=== PATIENT | female | born 1935 | race Caucasian/White ===

== ENCOUNTER 2017-01-26 11:07 | Observation (INO) ==
[2017-01-26] MEDS ORDERED: FUROSEMIDE 100 MG/10 ML VIAL IV STA (11:27)
--- NOTE | 2017-01-26 11:31 | EKG Report ---
Stationary ECG Study [facility] ER Test Date: 01/26/2017 11:29:17 AM Pat Name: GABRIELA SNIDER Department: Room: Gender: F Rn Occupational: : 1935 Requested by: Manuel Echeverria Order Number: [id number] Reading MD: THERESA CINTRON Intervals [place] Rate: 74 P: 71 FL: 147 QRS: 47 QRSD: 148 T: 206 QT: 455 QTc: 482 Interpretive Statements SINUS RHYTHM at 74 bpm LEFT BUNDLE BRANCH BLOCK Electronically Signed On 01-30-17 16:04:59 CDT by THERESA CINTRON [email or web address]
[2017-01-26] MEDS ORDERED: FUROSEMIDE 100 MG/10 ML VIAL ONE (11:45)
[2017-01-26 11:50] LABS: Basophils % 0.5 % (0.0-0.8); Eosinophils # 0.2 10*3/uL (0.0-0.87); Eosinophils % 4.4 % (0.00-10.9); Hematocrit 35.8 VOL% (35.7-47.0); Hemoglobin 11.5 GM/DL (12.0-16.0); Lymphocytes # 1.7 10*3/uL (1.4-4.0); Lymphocytes % 38.9 % (21.3-54.2); Mean Corpuscular HGB Conc 32.1 GM/DL (32-36); Mean Corpuscular Hemoglobin 30 PG (27-34); Mean Corpuscular Volume 92.3 FL (87-102); Mean Platelet Volume 11.2 FL (9.6-12.0); Monocytes # 0.5 10*3/uL (0.11-0.8); Monocytes % 10.3 % (1.7-12.7); Neutrophils % 45.9 % (38.7-73.9); Platelet Count 153 T/CUMM (130-400); Red Blood Count 3.88 MC/CUMM (3.8-5.5); Red Cell Distribution Width 14.6 % (9.3-17.3); White Blood Count 4.4 T/CUMM (4-12)
--- NOTE | 2017-01-26 12:06 | XRay Report ---
Exam: XR chest 1V portable Date: 01/26/2017 11:28 AM Indication: Shortness of breath Comparison: 12/22/2016 Technical: AP portable Findings: Cardiomegaly present. Mild interstitial thickening present in the basilar regions bilaterally. External cardiac leads are present. Oxygen tubing is present. Mediastinum is unremarkable. Impression: 1. Cardiomegaly 2. Persistent bibasilar atelectatic change and/or scarring with mild hyperinflation COPD present. PROCEDURE INTERPRETED AT [facility] DEPARTMENT OF RADIOLOGY Final Report Signed by: Dr. Nawaf Enriquez
[2017-01-26 12:21] LABS: Alanine Aminotransferase 14 U/L (13-56); Albumin 3.4 G/DL (3.4-5.0); Alkaline Phosphatase 110 U/L (45-117); Aspartate Amino Transferase 22 U/L (0-37); Bilirubin,Total < 0.39 MG/DL (0.2-1.0); Blood Urea Nitrogen 15 MG/DL (7-18); Calcium 8.7 MG/DL (8.5-10.1); Glucose 87 MG/DL (74-106); Magnesium 2.2 MG/DL (1.8-2.4); Osmolality,Calculated 282.1 MOS/KG (273-304); Potassium 4.4 MMOL/L (3.5-5.1); Sodium 142 MMOL/L (136-145); Total Protein 7.5 G/DL (6.4-8.3); Troponin I Only < 0.015 NG/ML (0.00-0.045)
--- NOTE | 2017-01-26 12:42 | Emergency Department Note ---
Erick Turpin Hilary, am scribing for, and in the presence of, Manuel Sharp MD 11:29. Lila Turpin Phillip K, MD, personally performed the services described in this documentation, ascribed by Nicki Suarez in my presence, and it is both accurate and complete . Arrival - Arrival Chief Complaint: Shortness of Breath Stated Complaint: sob ED Nursing Triage Note: Sent from the [facility] - SOB and generalized weakness onset 3-4 days Mode of Arrival: Wheelchair Limitations: No Limitations Source: Patient, RN Notes Reviewed - History of Present Illness HPI Narrative: Pt is a 81 y/o female presenting to the ED with c/o SOB and generalized weakness which onset a couple days ago. Pt states she was woken up around 0300 to her feet swelling and had to sit up to catch her breath. Pt confirms cough, SOB, and swollen feet but denies fever. She reports that she takes 4 breathing treatments daily, and Lasix. Onset (ago): day(s) Date of Last Menstrual Period: hyster Allergies/Adverse Reactions: Allergies Allergy/AdvReac Type Severity Reaction Status Date / Time Amoxicillin [From Augmentin] Allergy RASH Verified 10/07/16 13:13 cefepime [From Maxipime] Allergy Swelling Verified 10/07/16 13:13 of Lip/Tongue/Throat clavulanic acid Allergy RASH Verified 10/07/16 13:13 [From Augmentin] Diclofenac [From Arthrotec] Allergy Unknown/Unable Verified 10/07/16 13:13 to obtain misoprostol [From Arthrotec] Allergy Unknown/Unable Verified 10/07/16 13:13 to obtain Home Medications: Home Medications Medication Instructions Recorded Confirmed Type Allopurinol 300 mg PO DAILY 05/29/15 01/26/17 History Carvedilol [Coreg] 3.125 mg PO BID 05/29/15 01/26/17 History Magnesium Chloride [Mag Delay] 64 mg PO BID 05/29/15 01/26/17 History Furosemide Tab [Lasix Tab] 40 mg PO BID 08/19/15 01/26/17 History Multivit-Min/Iron/Folic/Lutein 1 each PO DAILY 11/05/15 01/26/17 History [Centrum Silver Women Tablet] Ipratropium [place] 0.02 % INH Q6H 05/27/16 01/26/17 History Levalbuterol Neb [Xopenex Neb] 1.25 mg RESP TX RT Q6H 05/27/16 01/26/17 History Gabapentin Cap/Tab [Neurontin 100 mg PO BID 10/07/16 01/26/17 History Cap/Tab] Potassium Chloride Cap/Tab [K Dur] 20 meq PO DAILY 01/26/17 01/26/17 History Review of System - Review of System 12 point system: reviewed and no additional remarkable complaints except as stated - Review of System Constitutional: Present: weakness (generalized). Absent: fever Respiratory: Present: cough, respiratory distress (SOB) Cardiovascular: Absent: chest pain Gastrointestinal: Absent: abdominal pain Neurological: Present: weakness (generalized) Medical,Surgical,& Family Hx - Medical History Cardio: History of: CHF, Hypertension Psychological: History of: Depression Neurology: History of: Peripheral Neuropathy No history of: Seizures HEENT: History of: Eye Problem (glasses), Dental Problems (upper and lower) Endocrine: History of: Dyslipidemia Rheumatology: History of;: Gout, Rheumatoid Arthritis Respiratory: History of: Bronchitis (chronic), COPD, Pneumonia Gastrointestinal: History of: GI Problems (pancreatitis caused by gallbladder disease) Hematology: History of: Anemia Other: History of: Miscellaneous Medical Problems (easy to bruise) - Surgical History Cardiac Surgeries: Sugical HX of: Cardiac Catheterization (1 stent) HEENT Surgeries: Surgical HX of: Eye Surgery (bilateral cataract surgery) Abdominal Surgeries: Surgical HX of: Abdominal Surgery, Appendectomy, Cholecystectomy, Colonoscopy, EGD Reproductive Surgeries: Surgical HX of;: Gynecologic Surgery, Hysterectomy - Family History Family History: Reports;: Family Cancer (son), Family Heart Disease (mother), Family Hypertension (mother and father), Family Stroke (father) - Social History Smoking Status: Former smoker Frequency of Alcohol Use: None Type of Drug Use: None Exam Vital Signs: Vital Signs Temperature 97.3 F L 01/26/17 11:31 Pulse Rate 74 01/26/17 12:00 Respiratory Rate 23 01/26/17 12:00 Blood Pressure 115/67 01/26/17 12:00 O2 Sat by Pulse Oximetry 99 01/26/17 12:00 - General General appearance: alert, in no apparent distress - Head Head exam: Present: atraumatic, normocephalic - Eye Eye exam: Present: normal appearance, PERRL, EOMI - ENT ENT exam: Present: mucous membranes moist, TM's normal bilaterally. Absent: mucous membranes dry - Neck Neck exam: Present: full ROM, trachea midline. Absent: tenderness - Chest Chest inspection: Present: symmetric chest wall rise. Absent: tenderness - Respiratory Respiratory exam: Present: rales (bilaterally in all lung granado, posterior and anterior), wheezes (expiratory ) - Cardiovascular Cardiovascular exam: Present: regular rate, normal rhythm, normal heart sounds. Absent: murmur, rubs, gallop - Abdominal Exam Abdominal exam: Present: soft, normal bowel sounds. Absent: distention, tenderness - Extremities Exam Extremities exam: Present: full ROM, pedal edema (2+ bilaterally). Absent: tenderness - Back Exam Back exam: Present: full ROM. Absent: tenderness - Neurological Exam Neurological exam: Present: alert, oriented X3, CN II-XII intact. Absent: motor sensory deficit - Psychiatric Psychiatric exam: Present: normal affect, normal mood - Skin Skin exam: Present: warm, dry, intact, normal color. Absent: rash Results - Labs CBC & BMP: 01/26/17 11:40 01/26/17 11:40 Lab Results: I have reviewed the patients labs Labs: Laboratory Tests 01/26/17 11:40 WBC 4.4 RBC 3.88 Hgb 11.5 L Hct 35.8 Laboratory Tests 01/26/17 01/26/17 11:40 11:40 Sodium 142 Potassium 4.4 Chloride 104 Carbon Dioxide 32 B-Natriuretic Peptide 370 H Globulin 4.1 H Albumin/Globulin Ratio 0.8 L - EKG EKG results: interpreted by JHOANA, sinus rhythm (LBBB) - Diagnostic Findings Procedure: Chest x-ray: report reviewed by me (1.Cardiomegaly 2. Persistent bibasilar atelectatic change and/or scarring iwth mild hyperinflation COPD present.) Disposition Clinical Impression: Congestive heart failure, COPD (chronic obstructive pulmonary disease) Case discussed with: patient, patient's family Disposition: Still a Patient Condition: Guarded Additional Instructions: Admit to Dr. Whitaker
[2017-01-26] MEDS ORDERED: ONDANSETRON 4 MG/2 ML VIAL IV PRN (12:44)
[2017-01-26] MEDS ORDERED: ACETAMINOPHEN 325 MG TABLET PO PRN (12:44)
[2017-01-26] MEDS ORDERED: ALBUTEROL/IPRATROPIUM 3 ML NEB RESP TX SCH (13:00)
[2017-01-26] MEDS: LEVOFLOXACIN INJ 500 MG in PREMIX 1 EACH IV SCH (14:17)
[2017-01-26] MEDS ORDERED: ALBUTEROL 2.5 MG/3 ML NEB RESP TX PRN (16:13)
--- NOTE | 2017-01-26 16:37 | Cardiology Consult Note ---
<Lyric Arshad E - Last Filed: 01/26/17 17:19> Assessment and Plan - Time spent with patient Time spent with patient: Greater than 30 minutes (due to assessment, plan, and documentation) (1) Dyspnea Status: Acute Assessment and plan: SEE PLAN OF CARE LISTED BELOW. Current Visit: No (2) Congestive heart failure Status: Chronic Assessment and plan: SEE PLAN OF CARE LISTED BELOW. Current Visit: Yes (3) Lower extremity edema Status: Acute Assessment and plan: SEE PLAN OF CARE LISTED BELOW. Current Visit: Yes (4) COPD (chronic obstructive pulmonary disease) Status: Chronic Assessment and plan: SEE PLAN OF CARE LISTED BELOW. Current Visit: Yes (5) Hypertension Status: Chronic Assessment and plan: SEE PLAN OF CARE LISTED BELOW. Current Visit: Yes (6) Left bundle branch block Status: Chronic Assessment and plan: SEE PLAN OF CARE LISTED BELOW. Current Visit: No (7) History of coronary artery disease Status: Chronic Assessment and plan: SEE PLAN OF CARE LISTED BELOW. Current Visit: No History of Present Illness - Data of Consult Patient: known to practice within the last 3 years (last seen by Dr. Ramos 04/27) Consult date: 01/26/17 Requesting Physician: Manuel Sharp Primary care physician: Nigel Tenorio - Consult Narrative Reason for consult: SOB History of present illness: FREELANCE MAKEUP ARTIST: DR. RAMOS PCP: DR. TENORIO Ms. Sorensen is a 81 year old female with a history of COPD, CHF, chronic left bundle branch block, coronary artery disease, hypertension, mitral regurgitation, former tobacco use. She is status post mid RCA stent July 01, 2009. She has very limited mobility and uses a motorized scooter to get around. She is unable to walk even short distances without having severe dyspnea. She has been on continuous home O2 for the past 2 years. She also has to sleep in the recliner in order to breathe comfortably. She reportedly has an allergy to albuterol and says that it sends her into atrial fibrillation. She tells me she never has any other episodes of atrial fibrillation whenever she has been checked. I do not see any mention of this in her previous records but we will avoid using this medication and continue her home medication. Ms. Sorensen presented to the emergency room today with acute dyspnea with onset this morning around 0300. She tells me she woke up around 0300 this morning and noticed her left leg swelling. She reports she also felt more short of breath than usual and states she just "didn't feel good." She states she tried to wait and see if she would improve, but when she did not, she had her son bring her to the emergency room. She denies chest pain, dizziness, lightheadedness, syncope, palpitations, diaphoresis. On admission, her BNP was noted to be 370, creatinine 1.0, potassium 4.4, magnesium 2.2, troponin negative. She was given one dose of IV Lasix and admitted to family medicine on the telemetry unit. We were consulted to see her due to her shortness of breath. Dr. Michaels to follow with further plan and addendum. ASSESSMENT/PLAN: 1. ACUTE DYSPNEA - Likely multifactorial. We will check D-Dimer, BLE venous dopplers to rule out PE/DVT. She has been given IV Lasix in ER and reports she feels "slightly" better. Echocardiogram has been ordered. She denies chest pain but we will cycle 2 additional sets of cardiac biomarkers to rule out ACS as cause for her dyspnea. 2. CONGESTIVE HEART FAILURE - Will check echocardiogram. It's possible this is contributing to her shortness of breath and lower extremity edema, although we will also rule out PE/DVT. Will continue IV Lasix. 3. LOWER EXTREMITY EDEMA - Continue Lasix IV. Patient reports this has already improved slightly since she first arrived at the hospital. 4. COPD - Continue O2 as needed. Continue breathing treatments. Will defer further management to family medicine. 5. HYPERTENSION - Currently well controlled. Will continue home medications and monitor. 6. LEFT BUNDLE BRANCH BLOCK - This is chronic. Will monitor. 7. HISTORY OF CAD - Status post mid RCA stent 07/01/09. She has not followed up with Dr. Ramos since 2014. Initial troponin negative. CC: Nigel Tenorio, DO - Home Medications and Allergies Home Medications: Home Medications Medication Instructions Recorded Confirmed Type Allopurinol 300 mg PO DAILY 05/29/15 01/26/17 History Carvedilol [Coreg] 3.125 mg PO BID 05/29/15 01/26/17 History Magnesium Chloride [Mag Delay] 64 mg PO BID 05/29/15 01/26/17 History Furosemide Tab [Lasix Tab] 40 mg PO BID 08/19/15 01/26/17 History Multivit-Min/Iron/Folic/Lutein 1 each PO DAILY 11/05/15 01/26/17 History [Centrum Silver Women Tablet] Ipratropium [place] 0.02 % INH Q6H 05/27/16 01/26/17 History Levalbuterol Neb [Xopenex Neb] 1.25 mg RESP TX RT Q6H 05/27/16 01/26/17 History Gabapentin Cap/Tab [Neurontin 100 mg PO BID 10/07/16 01/26/17 History Cap/Tab] Potassium Chloride Cap/Tab [K Dur] 20 meq PO DAILY 01/26/17 01/26/17 History Allergies/Adverse Reactions: Allergies Allergy/AdvReac Type Severity Reaction Status Date / Time Amoxicillin [From Augmentin] Allergy RASH Verified 10/07/16 13:13 cefepime [From Maxipime] Allergy Swelling Verified 10/07/16 13:13 of Lip/Tongue/Throat clavulanic acid Allergy RASH Verified 10/07/16 13:13 [From Augmentin] Diclofenac [From Arthrotec] Allergy Unknown/Unable Verified 10/07/16 13:13 to obtain misoprostol [From Arthrotec] Allergy Unknown/Unable Verified 10/07/16 13:13 to obtain Review of systems: - Constitutional: Present: fatigue, weakness, As per HPI. Absent: anorexia, chills, daytime sleepiness, excessive sweating, fever(s), frequent falls, headache(s), increased appetite, lethargy, malaise, night sweats, stops breathing during sleep, weight gain, weight loss. - EENT Eyes: Present: As per HPI. Absent: blurry vision, diplopia, loss of vision Ears: Present: As per HPI. Absent: decreased hearing, ear discharge, ear pain Nose, mouth and throat: Present: As per HPI. Absent: dysphagia, epistaxis, headache(s), hoarseness, lip swelling, nasal congestion, neck mass, neck pain, sinus pressure, sore throat, throat swelling, tongue swelling, vertigo - Cardiovascular: Present: dyspnea, dyspnea on exertion, edema, as per HPI. Absent: chest pain at rest, chest pain with activity, claudication, diaphoresis , radiating jaw, neck or arm pain, lightheadedness, orthopnea, palpitations, PND - Respiratory: Present: dyspnea, dyspnea on exertion, cough, as per HPI. Absent : hemoptysis, wheezing, snoring, pain on inspiration - Gastrointestinal: Present: As per HPI. Absent: abdominal pain, bloating, change in bowel habits, constipation, diarrhea, heartburn, hematemesis, hematochezia, loose stools, melena, nausea, vomiting - Genitourinary: Present: As per HPI. Absent: difficulty urinating, dysuria, flank pain, hematuria, nocturia, urinary frequency, urinary incontinence - Musculoskeletal: Present: As per HPI. Absent: arthralgias, back pain, joint swelling, limited range of motion, muscle cramps, muscle weakness, myalgias - Neurological: Present: As per HPI. Absent: abnormal gait, abnormal speech, behavioral changes, confusion, convulsions, disequilibrium, dizziness, focal weakness, frequent falls, headache(s), memory loss, numbness, paresthesias, radicular pain, syncope, tremor(s) - Psychiatric: Present: As per HPI. Absent: anxiety, confusion, depression, panic attacks - Endocrine: Present:fatigue, As per HPI. Absent: cold intolerance, heat intolerance, polydipsia, polyphagia - Hematologic/Lymphatic: Present: As per HPI. Absent: easy bleeding, easy bruising, lymphadenopathy Medical,Surgical,& Family Hx - Medical History Cardio: History of: CHF, Hypertension Psychological: History of: Depression Neurology: History of: Peripheral Neuropathy No history of: Seizures HEENT: History of: Eye Problem (glasses), Dental Problems (upper and lower) Endocrine: History of: Dyslipidemia Rheumatology: History of;: Gout, Rheumatoid Arthritis Respiratory: History of: Bronchitis (chronic), COPD, Pneumonia Gastrointestinal: History of: GI Problems (pancreatitis caused by gallbladder disease) Hematology: History of: Anemia Other: History of: Miscellaneous Medical Problems (easy to bruise) - Surgical History Cardiac Surgeries: Sugical HX of: Cardiac Catheterization (1 stent) HEENT Surgeries: Surgical HX of: Eye Surgery (bilateral cataract surgery) Abdominal Surgeries: Surgical HX of: Abdominal Surgery, Appendectomy, Cholecystectomy, Colonoscopy, EGD Reproductive Surgeries: Surgical HX of;: Gynecologic Surgery, Hysterectomy - Family History Family History: Reports;: Family Cancer (son), Family Heart Disease (mother), Family Hypertension (mother and father), Family Stroke (father) - Social History Smoking Status: Former smoker Frequency of Alcohol Use: None Type of Drug Use: None Marital Status: Functional capacity: wheelchair bound Physical Examination Vital Signs Temp Pulse Resp BP Pulse Ox 97.3 F L 74 20 113/67 97 01/26/17 11:13 01/26/17 11:13 01/26/17 11:13 01/26/17 11:13 01/26/17 11:13 Other: General appearance: Pleasant and cooperative. Overweight, no acute distress. - Head Head exam: Present: normal inspection, normocephalic, atraumatic. Absent: hematoma, laceration - Eye Eye exam: Present: EOMI. Absent: conjunctival injection, nystagmus, periorbital swelling, scleral icterus, laceration to eyelids Pupils: Present: PERRL. Absent: constricted, dilated, fixed, irregular, unequal - ENT ENT exam: Present: normal exam, normal external ear exam - Neck Neck exam: Present: normal inspection. Absent: lymphadenopathy, meningismus, tenderness, thyromegaly - Respiratory Respiratory exam: Present: clear to auscultation bilaterally, decreased breath sounds to bilateral bases posteriorly. Absent: accessory muscle use, chest wall tenderness - Cardiovascular Cardiovascular exam: Present: regular rate and rhythm. Absent: carotid bruit, gallop, JVD, rubs, murmur - GI/Abdominal GI/Abdominal exam: Present: normal bowel sounds, soft. Absent: distended, firm , guarding, hernia, mass, tenderness, rebound. - Extremities Exam Extremities exam: Present: normal capillary refill. Upper extremity pulses 2+. Lower extremity pulses 2+. 1+ pitting edema to RLE. 2+ pitting edema to LLE. Absent: calf tenderness -Musculoskeletal Exam Musculoskeletal: Present: No Fluid Collection, No Pain, Normal Range of Motion - Back Exam Back exam: Present: normal inspection. Absent: muscle spasm, vertebral tenderness - Neurological Exam Neurological exam: Present: alert, oriented X3, grossly intact without resting or essential tremor - Psychiatric Psychiatric exam: Present: normal affect, normal mood - Skin Skin exam: Present: warm, dry, intact. Absent: cyanosis, diaphoretic, rash, urticaria Result/EKG - Labs CBC & BMP: 01/26/17 11:40 01/26/17 11:40 Lab Results: I have reviewed the past 24 hour labs - EKG EKG results: interpreted by me, sinus rhythm (with chronic left bundle branch block) <Hua Michaels - Last Filed: 01/26/17 17:38> History of Present Illness - Consult Narrative History of present illness: Patient personally interviewed and examined and chart reviewed. I have discussed this case with Lyric Arshad NP. I agree with the assessment and evaluation and plan. In addition a summation Ms. Sorensen is a 81 year old female who has chronic COPD on home bronchodilator therapy and oxygen. She developed some recent progressive shortness of breath as well as acute left lower extremity edema last night but was not accompanied with any pain. She has had no prior history of DVT or pulmonary emboli. She was admitted to Dr. Pascual Peralta's service and we were consulted. At this time were going to evaluate for possible DVT of the left lower extremity. The edema that was already improved with Lasix. We will place her back on her bronchodilators that she takes at home and continue her home oxygen. Troponin is nondetectable BNP is 370. ECG was sinus rhythm and left bundle branch block. Chest x-ray without acute changes. We will await the patient's echocardiogram continue though some diuresis. We will monitor her. CC: Nigel Tenorio, DO Physical Examination Vital Signs Temp Pulse Resp BP Pulse Ox 97.3 F L 74 20 113/67 97 01/26/17 11:13 01/26/17 11:13 01/26/17 11:13 01/26/17 11:13 01/26/17 11:13 Result/EKG - Labs CBC & BMP: 01/26/17 11:40 01/26/17 11:40
[2017-01-26] MEDS: IPRATROPIUM 500 MCG/2.5 ML NEB RESP TX SCH (17:35)
[2017-01-26] MEDS: LEVALBUTEROL 1.25 MG/3 ML NEB RESP TX PRN ×2 (17:35→21:45)
[2017-01-26 18:48] LABS: Troponin I Only < 0.015 NG/ML (0.00-0.045)
[2017-01-26] MEDS ORDERED: ALBUTEROL 2.5 MG/3 ML NEB RESP TX SCH (19:00)
[2017-01-26] MEDS ORDERED: LEVALBUTEROL 1.25 MG/3 ML NEB RESP TX SCH (19:00)
--- NOTE | 2017-01-26 19:18 | Ultrasound Report ---
Referring physician: Nigel Whitaker Exam: Bilateral lower extremity venous ultrasound Date: January 26, 2017 Comparison: Lower extremity venous ultrasound June 23, 2009 Reason: Acute dyspnea/shortness of breath, lower extremity edema Technique: Duplex scan of the bilateral lower extremity veins was performed using B-Mode/grayscale imaging, compression, Doppler spectral analysis and color flow. Ultrasound images were captured and stored. Findings: There is no evidence of thrombus within the left or right common femoral veins, saphenous veins, superficial femoral veins or popliteal veins. Normal compression and augmentation are present throughout. Normal color flow and spectral analysis are observed. There is a 4.8 x 3.1 x 1.2 cm cyst at the left popliteal fossa. This is most consistent with a Juarez's cyst. Impression: 1. No evidence of deep venous thrombosis within either lower extremity. 2. Left Juarez's cyst. PROCEDURE INTERPRETED AT [facility] DEPARTMENT OF RADIOLOGY Final Report Signed by: Dr. Maria R Olson
[2017-01-26] MEDS ORDERED: FUROSEMIDE 40 MG TABLET PO SCH (21:00)
--- NOTE | 2017-01-26 21:08 | CT Report ---
EXAM: CT chest PE study DATE: January 26, 2017 COMPARISON: CT chest with contrast May 26, 2011 REASON: Pulmonary embolus, shortness of breath TECHNIQUE: Axial images of the chest were obtained after administration of 80 cc of Omnipaque 350 intravenous contrast. Coronal/sagittal reformatted images and coronal/sagittal MIP images were also acquired. The study was performed per pulmonary embolism protocol. Total DLP was 219.4 mGy*cm. FINDINGS: Pulmonary arteries: Evaluation of the subsegmental pulmonary arteries is limited, but no pulmonary embolus is identified through the segmental pulmonary artery branches. Vascular/heart: The thoracic aorta is normal in size but slightly tortuous. There is also moderate scattered calcified plaque at the thoracic aorta and its branches, including the coronary arteries. The heart is borderline enlarged, but no pericardial effusion is seen. Lymph nodes: There are calcified mediastinal and hilar lymph nodes. There are a few borderline prominent hilar and mediastinal lymph nodes. However, they appear stable. No suspicious axillary adenopathy is seen. Chest wall: Unremarkable. Lungs: Motion artifact makes evaluation of the lungs difficult, but there is [id number] emphysema, both in a centrilobular and paraseptal distribution. This is most prominent at the upper lung zones. There are also mild scattered opacities within both lungs, mainly within the lingula and right middle lobe. This is most consistent with atelectasis and possibly scarring. No pneumothorax or pleural effusion is identified. Bones: No acute osseous process is identified. Upper abdomen: The patient is status post cholecystectomy. No acute process is identified within the upper abdomen. IMPRESSION: 1. No evidence of pulmonary embolism. 2. There are mild scattered opacities within both lungs, mainly within the right middle lobe and lingula. This is most consistent with atelectasis and possibly scarring. 3. Emphysema. PROCEDURE INTERPRETED AT [facility] DEPARTMENT OF RADIOLOGY Final Report Signed by: Dr. Maria R Olson
[2017-01-26] MEDS: ENOXAPARIN 40 MG/0.4 ML SYRINGE SUBCUT SCH (21:39)
[2017-01-26] MEDS: MAGNESIUM CHLORIDE 64 MG TABLET PO SCH (21:39)
[2017-01-26] MEDS: GABAPENTIN 100 MG CAPSULE PO SCH (21:39)
[2017-01-26] MEDS: CARVEDILOL 3.125 MG TABLET PO SCH (21:39)
[2017-01-26] MEDS: DOCUSATE SODIUM 100 MG CAPSULE PO SCH (21:39)
--- NOTE | 2017-01-26 21:42 | Family Practice History&Phys ---
Assessment and Plan (1) Congestive heart failure Status: Acute Assessment and plan: Patient was noted to have some rales in bases in the emergency room. She had slight elevation of her BNP is 370. D-dimer was elevated at 1.8. Venous Dopplers and CT angiography chest did not reveal any acute clots. Isoenzymes are stable. Patient has been started on appropriate medication treatment Current Visit: Yes (2) Acute exacerbation of chronic obstructive airways disease Status: Acute Assessment and plan: Patient has significant wheezing with rare rales in bases bilaterally. She has had good diuresis but she has had her most relief from her respiratory treatments. I think that her admission symptoms were multifactorial with a component of COPD and congestive heart failure will start on appropriate treatment Current Visit: No (3) Hypertension Status: Chronic Assessment and plan: Stable on present medication Current Visit: Yes (4) History of coronary artery disease Status: Chronic Assessment and plan: Stable to present Current Visit: No History of Present Illness Chief complaint: Progressive shortness of breath and edema History of present illness: Ms. Sorensen is a 81 year old female Pt is a 81 y/o female presenting to the ED with c/o SOB and generalized weakness which onset a couple days ago. Pt states she was woken up around 0300 to her feet swelling and had to sit up to catch her breath. Pt confirms cough, SOB, and swollen feet but denies fever. Patient was evaluated in the emergency room and noted to have some rales and wheezing in bases bilaterally. Her BNP was slightly elevated at 370. Chest x-ray was essentially stable. Patient's dyspnea is probably multifactorial but in view of the degree of symptoms she is being admitted for evaluation therapy Home Medications Medication Instructions Recorded Confirmed Type Allopurinol 300 mg PO DAILY 05/29/15 01/26/17 History Carvedilol [Coreg] 3.125 mg PO BID 05/29/15 01/26/17 History Magnesium Chloride [Mag Delay] 64 mg PO BID 05/29/15 01/26/17 History Furosemide Tab [Lasix Tab] 40 mg PO BID 08/19/15 01/26/17 History Multivit-Min/Iron/Folic/Lutein 1 each PO DAILY 11/05/15 01/26/17 History [Centrum Silver Women Tablet] Ipratropium [place] 0.02 % INH Q6H 05/27/16 01/26/17 History Levalbuterol Neb [Xopenex Neb] 1.25 mg RESP TX RT Q6H 05/27/16 01/26/17 History Gabapentin Cap/Tab [Neurontin 100 mg PO BID 10/07/16 01/26/17 History Cap/Tab] Potassium Chloride Cap/Tab [K Dur] 20 meq PO DAILY 01/26/17 01/26/17 History Allergies Allergy/AdvReac Type Severity Reaction Status Date / Time Amoxicillin [From Augmentin] Allergy RASH Verified 10/07/16 13:13 cefepime [From Maxipime] Allergy Swelling Verified 10/07/16 13:13 of Lip/Tongue/Throat clavulanic acid Allergy RASH Verified 10/07/16 13:13 [From Augmentin] Diclofenac [From Arthrotec] Allergy Unknown/Unable Verified 10/07/16 13:13 to obtain misoprostol [From Arthrotec] Allergy Unknown/Unable Verified 10/07/16 13:13 to obtain Medical,Surgical,& Family Hx - Medical History Cardio: History of: CHF, Hypertension Psychological: History of: Depression Neurology: History of: Peripheral Neuropathy No history of: Seizures HEENT: History of: Eye Problem (glasses), Dental Problems (upper and lower) Endocrine: History of: Dyslipidemia Rheumatology: History of;: Gout, Rheumatoid Arthritis Respiratory: History of: Bronchitis (chronic), COPD, Pneumonia Gastrointestinal: History of: GI Problems (pancreatitis caused by gallbladder disease) Hematology: History of: Anemia Other: History of: Miscellaneous Medical Problems (easy to bruise) - Surgical History Cardiac Surgeries: Sugical HX of: Cardiac Catheterization (1 stent) HEENT Surgeries: Surgical HX of: Eye Surgery (bilateral cataract surgery) Abdominal Surgeries: Surgical HX of: Abdominal Surgery, Appendectomy, Cholecystectomy, Colonoscopy, EGD Reproductive Surgeries: Surgical HX of;: Gynecologic Surgery, Hysterectomy - Family History Family History: Reports;: Family Cancer (son), Family Heart Disease (mother), Family Hypertension (mother and father), Family Stroke (father) - Social History Smoking Status: Former smoker Frequency of Alcohol Use: None Type of Drug Use: None Marital Status: Exam - Constitutional Vitals: Period Temp Pulse Resp BP Sys/Genao Pulse Ox Last 24 Hr 97.7 F-98.2 F 75-85 18-24 115-132/67-72 94-100 General appearance: mild distress - Head Head exam: Present: normal inspection - ENT ENT exam: Present: normal exam - Neck Neck exam: Present: normal inspection - Respiratory Respiratory exam: Present: rales, wheezes - Cardiovascular Cardiovascular exam: Present: irregular rhythm, systolic murmur - GI/Abdominal GI/Abdominal exam: Present: normal bowel sounds, soft - Extremities Exam Extremities exam: Present: full ROM, edema - Back Exam Back exam: Present: normal inspection - Neurological Exam Neurological exam: Present: alert - Psychiatric Psychiatric exam: Present: normal affect - Skin Skin exam: Present: warm Results - Labs CBC & BMP: 01/26/17 11:40 01/26/17 11:40
[2017-01-26] MEDS: methylPREDNISolone SOD SUC 125 MG/2 ML VIAL IV SCH (23:39)
[2017-01-27 00:19] LABS: Troponin I Only < 0.015 NG/ML (0.00-0.045)
[2017-01-27] MEDS: LEVALBUTEROL 1.25 MG/3 ML NEB RESP TX SCH ×6 (01:30→19:48)
[2017-01-27] MEDS: IPRATROPIUM 500 MCG/2.5 ML NEB RESP TX SCH ×4 (01:53→19:46)
[2017-01-27 05:06] LABS: Basophils % 0.5 % (0.0-0.8); Eosinophils # 0.1 10*3/uL (0.0-0.87); Eosinophils % 1.4 % (0.00-10.9); Hematocrit 34.6 VOL% (35.7-47.0); Hemoglobin 11.1 GM/DL (12.0-16.0); Immature Granulocytes % 0.2 %; Immature Granulocytes Absolute 0.01 #; Lymphocytes # 0.7 10*3/uL (1.4-4.0); Lymphocytes % 16.4 % (21.3-54.2); Mean Corpuscular HGB Conc 32.1 GM/DL (32-36); Mean Corpuscular Hemoglobin 29 PG (27-34); Mean Corpuscular Volume 90.6 FL (87-102); Mean Platelet Volume 11.5 FL (9.6-12.0); Monocytes # 0.1 10*3/uL (0.11-0.8); Neutrophils # 3.4 10*3/uL (1.4-7.4); Neutrophils % 78.5 % (38.7-73.9); Platelet Count 145 T/CUMM (130-400); Red Blood Count 3.82 MC/CUMM (3.8-5.5); Red Cell Distribution Width 14.4 % (9.3-17.3); White Blood Count 4.4 T/CUMM (4-12)
[2017-01-27 05:47] LABS: Albumin 3.3 G/DL (3.4-5.0); Bilirubin,Total 0.6 MG/DL (0.2-1.0); Calcium 8.4 MG/DL (8.5-10.1); Osmolality,Calculated 285.1 MOS/KG (273-304); Potassium 4.1 MMOL/L (3.5-5.1); Risk Ratio 3.07; Total Protein 6.4 G/DL (6.4-8.3); VLDL CHOLESTEROL 15.6 MG/DL
[2017-01-27] MEDS: methylPREDNISolone SOD SUC 125 MG/2 ML VIAL IV SCH (06:32)
--- NOTE | 2017-01-27 08:13 | Pulmonology Consult Note ---
Assessment and Plan (1) COPD (chronic obstructive pulmonary disease) Status: Acute Assessment and plan: She does have significant COPD and is on good medication for that. She has slightly increased cough. I think it is reasonable to treat her with bronchodilators and antibiotics but would just use minimal dose steroids. I think this is primarily congestive heart failure. Current Visit: Yes (2) Nonischemic cardiomyopathy Status: Chronic Assessment and plan: History of ejection fraction 35%. Edema orthopnea. Elevated BNP. Need to cautiously diurese her. Agree with getting cardiology evaluation. Current Visit: No History of Present Illness Chief complaint: Shortness of breath History of present illness: Ms. Sorensen is a 81 year old female woke up yesterday morning with her left leg swollen a little more than the right leg. She was more short of breath. Really not having a lot of cough but she did have a little phlegm. This was an acute onset she had not been having any respiratory symptoms the last several days. She does however have severe COPD and a cardiomyopathy with an ejection fraction of 35%. She takes her medications regularly and keeps appointments regularly. She denies chest pain. She has not coughed up any blood. She is a former smoker but quit more than 10 years ago. Home Medications Medication Instructions Recorded Confirmed Type Allopurinol 300 mg PO DAILY 05/29/15 01/26/17 History Carvedilol [Coreg] 3.125 mg PO BID 05/29/15 01/26/17 History Magnesium Chloride [Mag Delay] 64 mg PO BID 05/29/15 01/26/17 History Furosemide Tab [Lasix Tab] 40 mg PO BID 08/19/15 01/26/17 History Multivit-Min/Iron/Folic/Lutein 1 each PO DAILY 11/05/15 01/26/17 History [Centrum Silver Women Tablet] Ipratropium [place] 0.02 % INH Q6H 05/27/16 01/26/17 History Levalbuterol Neb [Xopenex Neb] 1.25 mg RESP TX RT Q6H 05/27/16 01/26/17 History Gabapentin Cap/Tab [Neurontin 100 mg PO BID 10/07/16 01/26/17 History Cap/Tab] Potassium Chloride Cap/Tab [K Dur] 20 meq PO DAILY 01/26/17 01/26/17 History Allergies Allergy/AdvReac Type Severity Reaction Status Date / Time Amoxicillin [From Augmentin] Allergy RASH Verified 10/07/16 13:13 cefepime [From Maxipime] Allergy Swelling Verified 10/07/16 13:13 of Lip/Tongue/Throat clavulanic acid Allergy RASH Verified 10/07/16 13:13 [From Augmentin] Diclofenac [From Arthrotec] Allergy Unknown/Unable Verified 10/07/16 13:13 to obtain misoprostol [From Arthrotec] Allergy Unknown/Unable Verified 10/07/16 13:13 to obtain 12 point system: reviewed and no additional remarkable complaints except as stated - Constitutional Constitutional: Present: weakness - Cardiovascular Cardiovascular: Present: dyspnea, dyspnea on exertion, edema, orthopnea - Respiratory Respiratory: Present: cough, dyspnea, dyspnea on exertion - Neurological Neurological: Present: numbness - Psychiatric Psychiatric: Present: anxiety Exam (Pulmonay) H&P - Constitutional Vitals: Period Temp Pulse Resp BP Sys/Genao Pulse Ox Last 24 Hr 2 F-98.2 F 75-102 16-24 104-132/52-72 90-100 Exam: Vital signs normal. O2 sat 99% on 2 L. Pupils react to light. Throat is clear. Neck supple no bruits. Chest reveals some bibasilar crackles and mild expiratory rhonchi. Heart normal rate rhythm no murmurs. Abdomen soft nontender no masses. Extremities she has a trace of edema in both legs. Calves are nontender. Medical,Surgical,& Family Hx - Medical History Cardio: History of: CHF, Hypertension Psychological: History of: Depression Neurology: History of: Peripheral Neuropathy No history of: Seizures HEENT: History of: Eye Problem (glasses), Dental Problems (upper and lower) Endocrine: History of: Dyslipidemia Rheumatology: History of;: Gout, Rheumatoid Arthritis Respiratory: History of: Bronchitis (chronic), COPD, Pneumonia Gastrointestinal: History of: GI Problems (pancreatitis caused by gallbladder disease) Hematology: History of: Anemia Other: History of: Miscellaneous Medical Problems (easy to bruise) - Surgical History Cardiac Surgeries: Sugical HX of: Cardiac Catheterization (1 stent) HEENT Surgeries: Surgical HX of: Eye Surgery (bilateral cataract surgery) Abdominal Surgeries: Surgical HX of: Abdominal Surgery, Appendectomy, Cholecystectomy, Colonoscopy, EGD Reproductive Surgeries: Surgical HX of;: Gynecologic Surgery, Hysterectomy - Family History Family History: Reports;: Family Cancer (son), Family Heart Disease (mother), Family Hypertension (mother and father), Family Stroke (father) - Social History Smoking Status: Former smoker Frequency of Alcohol Use: None Type of Drug Use: None Results - Labs CBC & BMP: 01/27/17 03:49 01/27/17 03:49 Lab Results: I have reviewed the past 24 hour labs - Diagnostic Findings Procedure: Chest x-ray: image reviewed by me (Cardiomegaly. No acute infiltrates), CT - chest: image reviewed by me (Negative for pulmonary embolism. Minimal chronic interstitial scarring and/or atelectasis. No acute infiltrates.)
[2017-01-27] MEDS: FUROSEMIDE 40 MG/4 ML VIAL IV SCH ×2 (09:06→15:21)
[2017-01-27] MEDS: POTASSIUM CHLORIDE 20 MEQ TABLET PO SCH (09:07)
[2017-01-27] MEDS: CARVEDILOL 3.125 MG TABLET PO SCH ×2 (09:07→20:33)
[2017-01-27] MEDS: ALLOPURINOL 300 MG TABLET PO SCH (09:07)
[2017-01-27] MEDS: DOCUSATE SODIUM 100 MG CAPSULE PO SCH ×2 (09:07→20:33)
[2017-01-27] MEDS: MULTIVITAMIN (CENTRUM) TABLET PO SCH (09:07)
[2017-01-27] MEDS: GABAPENTIN 100 MG CAPSULE PO SCH ×2 (09:07→20:33)
[2017-01-27] MEDS: MAGNESIUM CHLORIDE 64 MG TABLET PO SCH ×2 (09:08→20:33)
[2017-01-27] MEDS: PANTOPRAZOLE 40 MG TABLET PO SCH (09:08)
--- NOTE | 2017-01-27 12:31 | Family Practice Progress Note ---
Family Practice - PN: Subj Interval history: Patient states that she feels much better this a.m.. She was able to rest some during the night. Her a.m. my lab studies are stable. This appears to definitely be a combination of congestive heart failure and chronic obstructive pulmonary disease. She denies any new complaints this a.m. She has had good diuresis. Her lungs sound much better this a.m. with only slight wheezing and bases bilaterally. We will continue present treatment plan. Hopefully will continue to improve Exam (Progress Note) - Constitutional Vitals: Period Temp Pulse Resp BP Sys/Genao Pulse Ox Last 24 Hr 2 F-98.4 F 75-102 16-24 104-132/52-72 90-100 Results - Labs CBC & BMP: 01/27/17 03:49 01/27/17 03:49 Assessment and Plan (1) Congestive heart failure Status: Acute Assessment and plan: Patient was noted to have some rales in bases in the emergency room. She had slight elevation of her BNP is 370. D-dimer was elevated at 1.8. Venous Dopplers and CT angiography chest did not reveal any acute clots. Isoenzymes are stable. Patient has been started on appropriate medication treatment Current Visit: Yes (2) Acute exacerbation of chronic obstructive airways disease Status: Acute Assessment and plan: Patient has significant wheezing with rare rales in bases bilaterally. She has had good diuresis but she has had her most relief from her respiratory treatments. I think that her admission symptoms were multifactorial with a component of COPD and congestive heart failure will start on appropriate treatment Current Visit: No (3) Hypertension Status: Chronic Assessment and plan: Stable on present medication Current Visit: Yes (4) History of coronary artery disease Status: Chronic Assessment and plan: Stable to present Current Visit: No
--- NOTE | 2017-01-27 12:50 | Cardiology Progress Note ---
<Lyric Arshad E - Last Filed: 01/27/17 12:39> Assessment and Plan - Time spent with patient Time spent with patient: Less than 30 minutes (1) Dyspnea Status: Acute Assessment and plan: SEE PLAN OF CARE LISTED BELOW. Current Visit: No (2) Congestive heart failure Status: Acute Assessment and plan: SEE PLAN OF CARE LISTED BELOW. Current Visit: Yes (3) Lower extremity edema Status: Acute Assessment and plan: SEE PLAN OF CARE LISTED BELOW. Current Visit: Yes (4) COPD (chronic obstructive pulmonary disease) Status: Acute Assessment and plan: SEE PLAN OF CARE LISTED BELOW. Current Visit: Yes (5) Hypertension Status: Chronic Assessment and plan: SEE PLAN OF CARE LISTED BELOW. Current Visit: Yes (6) Left bundle branch block Status: Chronic Assessment and plan: SEE PLAN OF CARE LISTED BELOW. Current Visit: No (7) History of coronary artery disease Status: Chronic Assessment and plan: SEE PLAN OF CARE LISTED BELOW. Current Visit: No Cardiology - PN: Subj Interval history: TORTILLA MAKER: DR. RAMOS PCP: DR. TENORIO Ms. Sorensen is a 81 year old female with a history of COPD, CHF, chronic left bundle branch block, coronary artery disease, hypertension, mitral regurgitation, former tobacco use. She is status post mid RCA stent July 01, 2009. She has very limited mobility and uses a motorized scooter to get around. She is unable to walk even short distances without having severe dyspnea. She has been on continuous home O2 for the past 2 years. She reportedly has an allergy to albuterol and says that it sends her into atrial fibrillation. She tells me she never has any other episodes of atrial fibrillation whenever she has been checked. I do not see any mention of this in her previous records but we will avoid using this medication and continue her home medication. She presented to the emergency room with recent progressive shortness of breath as well as acute left lower extremity edema without pain. Her breathing has improved with Lasix and breathing treatments. Her D-Dimer was noted to be elevated at 1.8 and she subsequently underwent venous dopplers and CT angiography of the chest which were both negative for DVT/PE. Upon exam today, her bilateral lower extremity edema is grossly less than it was yesterday and she seems much more comfortable. Her vital signs have been stable. Her labwork has been reviewed. Creatinine remains stable at 1.0. Cardiac biomarkers were negative x [address] Michaels to follow with further plan and addendum. ASSESSMENT/PLAN: 1. ACUTE DYSPNEA - Likely multifactorial and felt to be due to her CHF and COPD. Echocardiogram is pending. Venous dopplers and CT angiography of the chest were negative for DVT/PE. This is not felt to be due to ACS as she has had 3 sets of negative cardiac biomarkers. 2. CONGESTIVE HEART FAILURE - Echocardiogram pending. We will continue her Lasix as it along with her bronchodilators have improved her breathing considerably. 3. LOWER EXTREMITY EDEMA - Continue Lasix IV. This is much improved since admission. 4. COPD - Pulmonology is following. This is probably contributing in part to her shortness of breath as her breathing treatments seem to have given her the most relief. 5. HYPERTENSION - Currently well controlled. Will continue home medications and monitor. 6. LEFT BUNDLE BRANCH BLOCK - This is chronic. Will monitor. 7. HISTORY OF CAD - Status post mid RCA stent 07/01/09. She has not followed up with Dr. Ramos since 2014. Cardiac biomarkers negative x3. Exam (Progress Note) - Constitutional Vitals: Period Temp Pulse Resp BP Sys/Genao Pulse Ox Last 24 Hr 2 F-98.4 F 75-102 16-24 104-132/52-72 90-100 Exam: General appearance: Pleasant and cooperative. Overweight, no acute distress. - Head Head exam: Present: normal inspection, normocephalic, atraumatic. Absent: hematoma, laceration - Eye Eye exam: Present: EOMI. Absent: conjunctival injection, nystagmus, periorbital swelling, scleral icterus, laceration to eyelids Pupils: Present: PERRL. Absent: constricted, dilated, fixed, irregular, unequal - ENT ENT exam: Present: normal exam, normal external ear exam - Neck Neck exam: Present: normal inspection. Absent: lymphadenopathy, meningismus, tenderness, thyromegaly - Respiratory Respiratory exam: Present: clear to auscultation bilaterally, decreased breath sounds to bilateral bases posteriorly. Absent: accessory muscle use, chest wall tenderness - Cardiovascular Cardiovascular exam: Present: regular rate and rhythm. Absent: carotid bruit, gallop, JVD, rubs, murmur - GI/Abdominal GI/Abdominal exam: Present: normal bowel sounds, soft. Absent: distended, firm , guarding, hernia, mass, tenderness, rebound. - Extremities Exam Extremities exam: Present: normal capillary refill. Upper extremity pulses 2+. Lower extremity pulses 2+. No edema to RLE, trace pitting edema to LLE. Overall , much improved. Absent: calf tenderness -Musculoskeletal Exam Musculoskeletal: Present: No Fluid Collection, No Pain, Normal Range of Motion - Back Exam Back exam: Present: normal inspection. Absent: muscle spasm, vertebral tenderness - Neurological Exam Neurological exam: Present: alert, oriented X3, grossly intact without resting or essential tremor - Psychiatric Psychiatric exam: Present: normal affect, normal mood - Skin Skin exam: Present: warm, dry, intact. Absent: cyanosis, diaphoretic, rash, urticaria Result/EKG - Labs CBC & BMP: 01/27/17 03:49 01/27/17 03:49 Lab Results: I have reviewed the past 24 hour labs Labs: Laboratory Results - last 24 hr 01/26/17 01/26/17 01/26/17 17:52 17:53 23:21 WBC RBC Hgb Hct MCV MCH MCHC RDW Plt Count MPV Neut % (Auto) Lymph % (Auto) [place] % (Auto) Eos % (Auto) Baso % (Auto) Neut # (Auto) Lymph # (Auto) [place] # (Auto) Eos # (Auto) Baso # (Auto) Immature Gran % Nucleated RBC % Immature Gran # Nucleated RBCs # D-Dimer, Quantitative 1.8 Sodium Potassium Chloride Carbon Dioxide Anion Gap BUN Creatinine GFR Calculation BUN/Creatinine Ratio Glucose Calculated Osmolality Calcium Total Bilirubin AST ALT Alkaline Phosphatase Total Creatine Kinase 70 48 D CK-MB (CK-2) < 1.0 < 1.0 Troponin I < 0.015 < 0.015 B-Natriuretic Peptide Total Protein Albumin Globulin Albumin/Globulin Ratio Triglycerides Cholesterol LDL Cholesterol VLDL Cholesterol HDL Cholesterol Heart Disease Risk Ratio 01/27/17 01/27/17 01/27/17 03:49 03:49 03:49 WBC 4.4 RBC 3.82 Hgb 11.1 L Hct 34.6 L MCV 90.6 MCH 29 MCHC 32.1 RDW 14.4 Plt Count 145 MPV 11.5 Neut % (Auto) 78.5 H Lymph % (Auto) 16.4 L [place] % (Auto) 3.0 Eos % (Auto) 1.4 Baso % (Auto) 0.5 Neut # (Auto) 3.4 Lymph # (Auto) 0.7 L [place] # (Auto) 0.1 L Eos # (Auto) 0.1 Baso # (Auto) 0.0 Immature Gran % 0.2 Nucleated RBC % 0.0 Immature Gran # 0.01 Nucleated RBCs # 0.00 D-Dimer, Quantitative Sodium 142 Potassium 4.1 Chloride 104 Carbon Dioxide 30 Anion Gap 12.1 BUN 17 Creatinine 1.00 GFR Calculation 56 BUN/Creatinine Ratio 17.00 Glucose 117 H Calculated Osmolality 285.1 Calcium 8.4 L Total Bilirubin 0.60 AST 16 ALT 11 L Alkaline Phosphatase 114 Total Creatine Kinase CK-MB (CK-2) Troponin I B-Natriuretic Peptide 499 H Total Protein 6.4 Albumin 3.3 L Globulin 3.1 Albumin/Globulin Ratio 1.0 L Triglycerides 78 Cholesterol 224 H LDL Cholesterol 134.0 VLDL Cholesterol 15.6 HDL Cholesterol 73 H Heart Disease Risk Ratio 3.07 - EKG EKG results: interpreted by me, sinus rhythm (with chronic left bundle branch block) <Hua Michaels - Last Filed: 01/27/17 15:23> Cardiology - PN: Subj Interval history: The patient is interviewed and examined and chart reviewed. I discussed this case with Lyric Arshad NP. Agree with the evaluation and assessment and plan. She is doing well with her edema resolved and no shortness of breath. Her wheezing is markedly improved and feels much better. She has a good appetite. She has been up and around the room. Her vital signs are stable including her heart rate vital signs. She is remaining in sinus rhythm without issues. If she continues to progress like that she should be noted to be discharged soon. I do not think any other cardiac evaluation is indicated at this time. Her BNP is a little more elevated but I do not think this is significant. She can keep her follow-up with Dr. Ramos as prescribed. Her exam is as already noted. She is in no distress, her lungs are clear but little coarse, cardiac regular rate and rhythm with distant heart sounds but no gross murmur, abdomen is soft nontender, extremities are without edema, neurologic is grossly intact. Hopefully she will be able to go home soon. Exam (Progress Note) - Constitutional Vitals: Period Temp Pulse Resp BP Sys/Genao Pulse Ox Last 24 Hr 2 F-98.4 F 80-102 16-24 104-132/52-72 90-99 Result/EKG - Labs CBC & BMP: 01/27/17 03:49 01/27/17 03:49 Labs: Laboratory Results - last 24 hr 01/26/17 01/26/17 01/26/17 17:52 17:53 23:21 WBC RBC Hgb Hct MCV MCH MCHC RDW Plt Count MPV Neut % (Auto) Lymph % (Auto) [place] % (Auto) Eos % (Auto) Baso % (Auto) Neut # (Auto) Lymph # (Auto) [place] # (Auto) Eos # (Auto) Baso # (Auto) Immature Gran % Nucleated RBC % Immature Gran # Nucleated RBCs # D-Dimer, Quantitative 1.8 Sodium Potassium Chloride Carbon Dioxide Anion Gap BUN Creatinine GFR Calculation BUN/Creatinine Ratio Glucose Calculated Osmolality Calcium Total Bilirubin AST ALT Alkaline Phosphatase Total Creatine Kinase 70 48 D CK-MB (CK-2) < 1.0 < 1.0 Troponin I < 0.015 < 0.015 B-Natriuretic Peptide Total Protein Albumin Globulin Albumin/Globulin Ratio Triglycerides Cholesterol LDL Cholesterol VLDL Cholesterol HDL Cholesterol Heart Disease Risk Ratio 01/27/17 01/27/17 01/27/17 03:49 03:49 03:49 WBC 4.4 RBC 3.82 Hgb 11.1 L Hct 34.6 L MCV 90.6 MCH 29 MCHC 32.1 RDW 14.4 Plt Count 145 MPV 11.5 Neut % (Auto) 78.5 H Lymph % (Auto) 16.4 L [place] % (Auto) 3.0 Eos % (Auto) 1.4 Baso % (Auto) 0.5 Neut # (Auto) 3.4 Lymph # (Auto) 0.7 L [place] # (Auto) 0.1 L Eos # (Auto) 0.1 Baso # (Auto) 0.0 Immature Gran % 0.2 Nucleated RBC % 0.0 Immature Gran # 0.01 Nucleated RBCs # 0.00 D-Dimer, Quantitative Sodium 142 Potassium 4.1 Chloride 104 Carbon Dioxide 30 Anion Gap 12.1 BUN 17 Creatinine 1.00 GFR Calculation 56 BUN/Creatinine Ratio 17.00 Glucose 117 H Calculated Osmolality 285.1 Calcium 8.4 L Total Bilirubin 0.60 AST 16 ALT 11 L Alkaline Phosphatase 114 Total Creatine Kinase CK-MB (CK-2) Troponin I B-Natriuretic Peptide 499 H Total Protein 6.4 Albumin 3.3 L Globulin 3.1 Albumin/Globulin Ratio 1.0 L Triglycerides 78 Cholesterol 224 H LDL Cholesterol 134.0 VLDL Cholesterol 15.6 HDL Cholesterol 73 H Heart Disease Risk Ratio 3.07
[2017-01-27] MEDS: LEVOFLOXACIN INJ 500 MG in PREMIX 1 EACH IV SCH (15:20)
[2017-01-27 17:44] LABS: Apearance,Urine CLEAR (Clear); Bacteria,Urine Occasional /HPF (Few); Bilirubin,Urine Negative (Negative); Blood, Urine Negative (Negative); Glucose,Urine (UA) Negative (Negative); Hyaline Casts,Urine 7 /LPF (0-3); Ketones,Urine Negative (Negative); Mucus,Urine Occasional /LPF (Occasional); Nitrite,Urine Negative (Negative); Protein,Urine Negative; RBC,Urine 1 /HPF (0-4); Squamous Epithelial Cell,Urine Occasional /HPF (0-10); Urine Color Yellow (Yellow); Urine Specific Gravity 1.013 (1.001-1.035); Urine Urobilinogen < 2.0 EU/DL (0.2-1.0)
--- NOTE | 2017-01-27 19:00 | ECHO Report ---
Letha Sorensen Exam Date: 01/27/2017 09:40 Referring Physician: Technologist: Brandee Haider Age: 81 Ht (in): 65 Wt (lb): 165 Gender: F Exam Location: [facility] Echo Indications: CHF, Edema, SOB, COPD BP: 113 / 73 HR: 88 Rhythm: Sinus, intraventricular conduction abnormality Technical Quality: Fair IMPRESSIONS 1. Left ventricle overall appears to be mildly dilated with severe LV dysfunction ejection fraction 30%. There is mild concentric left ventricular hypertrophy. Intraventricular conduction delay is noted. 2. Other cardiac chambers appear to be normal size. 3. Mitral calcification with sclerosing of the mitral valve with moderate mitral valve regurgitation. 4. Sclerotic aortic valve without Doppler abnormalities. 5. Trace to mild tricuspid regurgitation. 6. Right-sided pressures are probably normal. MEASUREMENTS (Male / Female) Normal Values 2D ECHO LV Diastolic Diameter PLAX 4.9 cm 4.2 - 5.9 / 3.9 - 5.3 cm LV Systolic Diameter PLAX 4.1 cm LV Fractional Shortening PLAX 15.7 % IVS Diastolic Thickness 1.2 cm 0.6 - 1.0 / 0.6 - 0.9 cm LVPW Diastolic Thickness 1.4 cm 0.6 - 1.0 / 0.6 - 0.9 cm RV Internal Dim ED PLAX 2.0 cm Aortic Root Diameter 2.5 cm LA Systolic Diameter LX 3.4 cm 3.0 - 4.0 / 2.7 - 3.8 cm DOPPLER TR Peak Velocity 250.0 cm/s TR Peak Gradient 25.0 mmHg FINDINGS Left Ventricle Left ventricle is at least mildly dilated with severe LV dysfunction with ejection fraction 30%. There is intraventricular conduction delay. Mild concentric left ventricular hypertrophy. Right Ventricle Normal right ventricular size and systolic function. Right Atrium Normal right atrial size. Left Atrium Left atrium is upper limits normal size. Mitral Valve Mitral valve with minimal annular calcification and mild sclerosing; moderate mitral regurgitation. Aortic Valve Aortic valve is a tricuspid structure with sclerosis without stenosis or regurgitation. Tricuspid Valve Morphologically normal tricuspid valve. Trace to mild tricuspid valve regurgitation. Tricuspid regurgitation velocities suggest a PAP of 30- 35 mmHg. Pulmonic Valve Pulmonic valve not well visualized. Pericardium No pericardial effusion. Aorta Normal size aortic root and proximal ascending aorta. Hua Michaels MD (Electronically Signed) Final Date: 27 Jan 2017 18:59
[2017-01-27] MEDS: ENOXAPARIN 40 MG/0.4 ML SYRINGE SUBCUT SCH (20:33)
[2017-01-28] MEDS: IPRATROPIUM 500 MCG/2.5 ML NEB RESP TX SCH ×3 (00:02→13:01)
[2017-01-28] MEDS: LEVALBUTEROL 1.25 MG/3 ML NEB RESP TX SCH ×4 (00:03→11:14)
[2017-01-28 04:46] LABS: Eosinophils % 0.2 % (0.00-10.9); Hematocrit 32.3 VOL% (35.7-47.0); Hemoglobin 10.4 GM/DL (12.0-16.0); Immature Granulocytes % 0.2 %; Immature Granulocytes Absolute 0.01 #; Lymphocytes # 1.3 10*3/uL (1.4-4.0); Lymphocytes % 29.6 % (21.3-54.2); Mean Corpuscular HGB Conc 32.2 GM/DL (32-36); Mean Corpuscular Hemoglobin 29 PG (27-34); Mean Platelet Volume 11.8 FL (9.6-12.0); Monocytes # 0.4 10*3/uL (0.11-0.8); Monocytes % 9.2 % (1.7-12.7); Neutrophils # 2.6 10*3/uL (1.4-7.4); Neutrophils % 60.8 % (38.7-73.9); Platelet Count 156 T/CUMM (130-400); Red Blood Count 3.63 MC/CUMM (3.8-5.5); Red Cell Distribution Width 14.1 % (9.3-17.3); White Blood Count 4.2 T/CUMM (4-12)
[2017-01-28 05:13] LABS: Calcium 8.7 MG/DL (8.5-10.1); Magnesium 2.1 MG/DL (1.8-2.4); Osmolality,Calculated 286.5 MOS/KG (273-304); Potassium 4.2 MMOL/L (3.5-5.1)
[2017-01-28] MEDS ORDERED: methylPREDNISolone SOD SUC 125 MG/2 ML VIAL IV SCH (06:00)
[2017-01-28] MEDS: CARVEDILOL 3.125 MG TABLET PO SCH (08:34)
[2017-01-28] MEDS: GABAPENTIN 100 MG CAPSULE PO SCH (08:34)
[2017-01-28] MEDS: MAGNESIUM CHLORIDE 64 MG TABLET PO SCH (08:34)
[2017-01-28] MEDS: POTASSIUM CHLORIDE 20 MEQ TABLET PO SCH (08:34)
[2017-01-28] MEDS: MULTIVITAMIN (CENTRUM) TABLET PO SCH (08:34)
[2017-01-28] MEDS: PANTOPRAZOLE 40 MG TABLET PO SCH (08:34)
[2017-01-28] MEDS: DOCUSATE SODIUM 100 MG CAPSULE PO SCH (08:35)
[2017-01-28] MEDS: FUROSEMIDE 40 MG/4 ML VIAL IV SCH (08:35)
[2017-01-28] MEDS: ALLOPURINOL 300 MG TABLET PO SCH (08:35)
--- NOTE | 2017-01-28 10:22 | Cardiology Progress Note ---
Assessment and Plan (1) Lower extremity edema Status: Resolved Assessment and plan: This is resolved at this time. This is a recurrent issue is multifactorial including her lung disease and left ventricular dysfunction. Current Visit: Yes (2) History of coronary artery disease Status: Chronic Assessment and plan: This is clinically stable and not issue at this time. Current Visit: No (3) COPD (chronic obstructive pulmonary disease) Status: Acute Assessment and plan: She had exacerbation of this on this admission this is now improved. Current Visit: Yes (4) Nonischemic cardiomyopathy Status: Chronic Assessment and plan: This is chronic in ejection fraction around 30% which is unchanged from prior evaluations. Current Visit: No (5) Left bundle branch block Status: Chronic Assessment and plan: This is chronic. No change. Current Visit: No (6) Congestive heart failure Status: Acute Assessment and plan: This is actually acute on chronic and is stable. This is now improved with diuresis. Current Visit: Yes (7) Elevated BUN and creatinine Status: Acute Assessment and plan: I think this is a reflection for diuresis. We will change her from IV Lasix back to her p.o. dosing and regimen. Current Visit: Yes Cardiology - PN: Subj Interval history: Patient doing well with no complaints today. She is having no shortness of breath no wheezing. Her edema is completely resolved. She has good appetite. She slept well last night. Her lab work this morning is stable including her CBC and chemistries but her BUN and creatinine are elevated I think this is a reflection of her diuresis. Her telemetry continues reveals sinus rhythm. I think this patient is reached almost maximum hospital benefit and I think it is time to switch her back to oral medication including her Lasix. Exam (Progress Note) - Constitutional Vitals: Period Temp Pulse Resp BP Sys/Genao Pulse Ox Last 24 Hr 96.9 F-99 F 66-88 15-20 99-117/53-67 93-99 Exam: General appearance: Over weight, no acute distress. She is sitting beside the bed HEENT exam: normal inspection, atraumatic Neck exam: normal inspection no JVD. No carotid bruit. Trachea is in midline Respiratory/lungs exam: clear to auscultation bilaterally good air movement. She has no wheezing today. Cardiovascular exam: regular rate and rhythm, no murmur or gallop or rub. No precordial lift. Chest wall exam: nontender GI/Abdominal exam: normal bowel sounds, soft, nontender, no abdominal bruits or pulsatile masses. Extremeties/musculoskeletal: normal inspection without edema or cyanosis. Neurological exam: alert, oriented X3, no focal deficits Psychiatric exam: normal affect, normal mood. Cognitive function is grossly normal. Skin exam: normal color, warm Result/EKG - Labs CBC & BMP: 01/28/17 04:01 01/28/17 04:01 Lab Results: I have reviewed the past 24 hour labs (Her BUN and creatinine are elevated some probably reflects her diuresis.) Labs: Laboratory Results - last 24 hr 01/27/17 01/28/17 01/28/17 17:28 04:01 04:01 WBC 4.2 RBC 3.63 L Hgb 10.4 L Hct 32.3 L MCV 89.0 MCH 29 MCHC 32.2 RDW 14.1 Plt Count 156 MPV 11.8 Neut % (Auto) 60.8 Lymph % (Auto) 29.6 [place] % (Auto) 9.2 Eos % (Auto) 0.2 Baso % (Auto) 0.0 Neut # (Auto) 2.6 Lymph # (Auto) 1.3 L [place] # (Auto) 0.4 Eos # (Auto) 0.0 Baso # (Auto) 0.0 Immature Gran % 0.2 Nucleated RBC % 0.0 Immature Gran # 0.01 Nucleated RBCs # 0.00 Sodium 139 Potassium 4.2 Chloride 100 Carbon Dioxide 31 Anion Gap 12.2 BUN 40 H Creatinine 1.70 H GFR Calculation 29 BUN/Creatinine Ratio 23.00 H Glucose 94 Calculated Osmolality 286.5 Calcium 8.7 Magnesium 2.1 Urine Color Yellow Urine Appearance Clear Urine pH 5.0 Ur Specific [place] 1.013 Urine Protein Negative Urine Glucose (UA) Negative Urine Ketones Negative Urine Blood Negative Urine Nitrate Negative Urine Bilirubin Negative Urine Urobilinogen < 2.0 H Urine Leukocytes Negative Urine RBC 1 Ur Squamous Epith Cells Occasional Urine Bacteria Occasional Hyaline Casts 7 Urine Mucus Occasional Ur Culture Indicated? Not indicated - Impressions Impressions: Telemetry with normal sinus rhythm.
[2017-01-28 12:28] VITALS: BP 129/60
--- NOTE | 2017-01-28 13:02 | Discharge Summary ---
Hospital Course - Hospital Course Hospital Course: This is an 81 year old female patient of Dr. 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 Gee, smoking history and quit cigarettes about 10 years ago, recurrent episodes of COPD exacerbation, history of pancreatitis secondary to gallbladder disease, acid reflux, HTN, who presented to ER with acute CHF and COPD exacerbation. She is feeling much better, and would like to go home for Mother's Day. Discussed at bedside with son and granddaughter. The granddaughter will be staying with her until the son is off shift from work. The family is comfortable with this plan. The patient understands the need for PO fluid restriction. She will follow up with Dr. Whitaker and Dr. Gee in the clinic. Diagnosis - Discharge Diagnosis (1) Renal insufficiency Status: Chronic (2) COPD (chronic obstructive pulmonary disease) Status: Chronic (3) Congestive heart failure Status: Chronic (4) Hypertension Status: Chronic (5) Lower extremity edema Status: Resolved (6) Acute exacerbation of chronic obstructive airways disease Status: Resolved (7) History of coronary artery disease Status: Chronic (8) Left bundle branch block Status: Chronic (9) Nonischemic cardiomyopathy Status: Chronic (10) Diuresis Status: Acute Discharge Plan - Discharge Data Disposition: Home Health Service Condition at Discharge: Stable Discharge Diet: heart healthy, low fat, low cholesterol, low salt diet Activity: increase activity as tolerated - Discharge Medications New Allopurinol [Zyloprim] 200 mg PO DAILY #30 tablet Docusate Sodium Cap [Colace Cap] 100 mg PO BID capsule Levofloxacin Tab [Levaquin Tab] 500 mg PO DAILY #10 tablet Acetaminophen Tab [Tylenol Tab] 650 mg PO Q6H PRN #0 tablet PRN Reason: Fever > 100.4 Or Headache Continue Magnesium Chloride [Mag Delay] 64 mg PO BID Carvedilol [Coreg] 3.125 mg PO BID Furosemide Tab [Lasix Tab] 40 mg PO BID Multivit-Min/Iron/Folic/Lutein [Centrum Silver Women Tablet] 1 each PO DAILY Ipratropium [place] 0.02 % INH Q6H Levalbuterol Neb [Xopenex Neb] 1.25 mg RESP TX RT Q6H Gabapentin Cap/Tab [Neurontin Cap/Tab] 100 mg PO BID Potassium Chloride Cap/Tab [K Dur] 20 meq PO DAILY Discontinued Allopurinol 300 mg PO DAILY - Follow Up or Referral Follow Up: Nigel Whitaker DO [Primary Care Provider] - Kenji Gee MD [Physician] - - Forms/Instructions Instructions: Heart Failure (DC), Chronic Obstructive Pulmonary Disease (DC) Additional Discharge Instructions: She will follow up with appointments already set. She will need to take levaquin and Medrol dose pack until complete. Follow PO fluid restriction of no more than 900 cc in 24 hours. Continue breathing treatments at home as scheduled. Limit salt intake. Have Home Health come see her Monday. Exam - Constitutional Vitals: Period Temp Pulse Resp BP Sys/Genao Pulse Ox Last 24 Hr 96.9 F-99 F 66-88 15-20 99-129/53-64 95-99 General appearance: no acute distress - Head Head exam: Present: normocephalic - Eye Eye exam: Present: EOMI - Respiratory Respiratory exam: Present: clear to auscultation bilaterally. Absent: rhonchi, wheezes - Cardiovascular Cardiovascular exam: Present: regular rate and rhythm (left bundle) - GI/Abdominal GI/Abdominal exam: Present: soft. Absent: tenderness - Extremities Exam Extremities exam: Absent: edema - Back Exam Back exam: Present: normal inspection - Neurological Exam Neurological exam: Present: alert, oriented X3, CN II-XII intact - Psychiatric Psychiatric exam: Present: normal affect, normal mood - Skin Skin exam: Present: warm, dry Discharge Results Procedures and tests throughout hospitalization: Pending Orders 01/29/17 04:00 BMP w/ Mg [Basic Metabolic Panel w/Mg] IN AM Basic Metabolic Panel w/Mg IN AM Comp Blood Count Auto Diff IN AM 01/30/17 04:00 BMP w/ Mg [Basic Metabolic Panel w/Mg] IN AM Basic Metabolic Panel w/Mg IN AM Comp Blood Count Auto Diff IN AM Labs on day of discharge: Labs from last 24 hours 01/28/17 01/28/17 01/27/17 04:01 04:01 17:28 WBC 4.2 RBC 3.63 L Hgb 10.4 L Hct 32.3 L MCV 89.0 MCH 29 MCHC 32.2 RDW 14.1 Plt Count 156 MPV 11.8 Neut % (Auto) 60.8 Lymph % (Auto) 29.6 [place] % (Auto) 9.2 Eos % (Auto) 0.2 Baso % (Auto) 0.0 Neut # (Auto) 2.6 Lymph # (Auto) 1.3 L [place] # (Auto) 0.4 Eos # (Auto) 0.0 Baso # (Auto) 0.0 Immature Gran % 0.2 Nucleated RBC % 0.0 Immature Gran # 0.01 Nucleated RBCs # 0.00 Sodium 139 Potassium 4.2 Chloride 100 Carbon Dioxide 31 Anion Gap 12.2 BUN 40 H Creatinine 1.70 H GFR Calculation 29 BUN/Creatinine Ratio 23.00 H Glucose 94 Calculated Osmolality 286.5 Calcium 8.7 Magnesium 2.1 Urine Color Yellow Urine Appearance Clear Urine pH 5.0 Ur Specific [place] 1.013 Urine Protein Negative Urine Glucose (UA) Negative Urine Ketones Negative Urine Blood Negative Urine Nitrate Negative Urine Bilirubin Negative Urine Urobilinogen < 2.0 H Urine Leukocytes Negative Urine RBC 1 Ur Squamous Epith Cells Occasional Urine Bacteria Occasional Hyaline Casts 7 Urine Mucus Occasional Ur Culture Indicated? Not indicated - Imaging and Cardiology Procedure: CT - chest: report reviewed by me, X-ray: report reviewed by me DS: Provider Date of admission: 01/26/17 12:43 Primary care physician: Nigel Whitaker DO Attending physician on admission: Nigel Whitaker DO Consults: 01/26/17 12:44 Consult to Case Mgmt/Social Srvs [CONS] Routine Reason for Case Mgmt/Social Srvs: Discharge Planning Consult to Physician [CONS] Routine Comment: Shortness of breath Consulting Provider: Baldomero Ramos Person Notified: DECEMBER Date Notified: 01/26/17 Time Notified: 13:51 01/26/17 21:56 Consult to Physician [CONS] Routine Comment: Exacerbation COPD Consulting Provider: Kenji Gee Discharging clinician: Asha Licona DO Expected date of discharge: 01/28/17
--- NOTE | 2017-01-28 14:47 | Pulmonology Progress Note ---
Pulmonary - PN: Subj Interval history: 81-year-old female with a history of COPD as well as heart failure reduced ejection fraction admitted for lower extremity edema and shortness of breath thought to be due to volume overload. Patient has done well overnight without acute events. Patient reports complete improvement in lower extremity edema and dyspnea with interventions performed thus far. Patient desires to go home at this time. Exam (Progress Note) - Constitutional Vitals: Period Temp Pulse Resp BP Sys/Genao Pulse Ox Last 24 Hr 96.9 F-99 F 66-88 15-20 99-129/53-64 95-99 General appearance: over weight - Head Head exam: Present: normal inspection - Eye Eye exam: Present: EOMI Pupils: Present: CHANTAL - Neck Neck exam: Present: normal inspection - Respiratory Respiratory exam: Present: clear to auscultation bilaterally (Upper and midlung granado), rales (Bibasilar). Absent: rhonchi, stridor, wheezes - Cardiovascular Cardiovascular exam: Present: regular rate and rhythm - GI/Abdominal GI/Abdominal exam: Present: normal bowel sounds - Extremities Exam Extremities exam: Present: normal inspection. Absent: edema - Neurological Exam Neurological exam: Present: alert, oriented X3 - Skin Skin exam: Present: warm, dry Results - Labs CBC & BMP: 01/28/17 04:01 01/28/17 04:01 Assessment and Plan (1) Congestive heart failure Status: Chronic Assessment and plan: 81-year-old female admitted for decompensated heart failure with reduced ejection fraction. Patient has significantly improved with diuresis and feels she is back to baseline. Agree with recommendation for transition to oral diuretics and transition to home therapy. Patient was instructed on the importance of monitoring her weight and oral intake of salt and fluid and she expressed understanding. Current Visit: Yes (2) Elevated BUN and creatinine Status: Acute Assessment and plan: Creatinine increased this morning to 1.7 from 1 yesterday. Likely due to diuresis with IV Lasix. Patient has been transitioned back to p.o. Lasix, which should result in a slow improvement over the next few days. Recommend patient undergo reevaluation of renal function after discharge to ensure kidney function returns to baseline. Current Visit: Yes (3) COPD (chronic obstructive pulmonary disease) Status: Chronic Assessment and plan: Symptoms currently stable without current evidence of exacerbation. Recommend continuing outpatient COPD therapy. I do not feel patient's reason for admission was a COPD exacerbation, so recommend against further steroid/ antibiotic therapy at this time, as this may only worsen her volume overload and renal function. Follow-up with Dr. Gee as an outpatient after discharge. Current Visit: Yes (4) Lower extremity edema Status: Resolved Assessment and plan: Due to CHF; resolved with diuresis. Continue to monitor. Current Visit: Yes Specialty Discharge - Follow Up or Referrals Follow up with: Kenji Gee MD [Physician] - Nigel Whitaker DO [Primary Care Provider] -
[2017-01-28] MEDS ORDERED: LEVOFLOXACIN INJ 250 MG in PREMIX 1 EACH IV SCH (15:00)
== END 2017-01-28 15:41 | disposition home health service (06) ==
LOC: N.ED 11:07 → N.EDINP 11:07 → N.TELEN 13:35
PROVIDERS: ADMIT Family Medicine; ATTEND Family Medicine

== ENCOUNTER 2017-07-01 11:31 | Inpatient (IN) ==
--- NOTE | 2017-07-01 13:53 | XRay Report ---
History: Shortness of breath. COPD Date: 07/01/2017 Study: Chest x-ray PA and lateral Comparison exam: February 25, 2017 There is mild cardiomegaly. There is no mediastinal mass. The pulmonary vasculature is upper normal. There is no pleural effusion. The lungs are well-expanded to slightly hyperexpanded. There is some reticular interstitial opacity in the lung bases which could represent chronic interstitial disease. There is mild platelike subsegmental atelectasis in the right middle lobe. The osseous structures are unchanged. Impression: The lungs are slightly hyperexpanded as can be seen with COPD. Mild platelike subsegmental atelectasis in the right middle lobe. Mild chronic bibasilar interstitial disease PROCEDURE INTERPRETED AT [facility] DEPARTMENT OF RADIOLOGY Final Report Signed by: Dr. Simran Magallanes
[2017-07-01] MEDS ORDERED: methylPREDNISolone SOD SUC 125 MG/2 ML VIAL IV STA (14:16)
[2017-07-01] MEDS ORDERED: ONDANSETRON 4 MG/2 ML VIAL IV STA (14:16)
[2017-07-01] MEDS ORDERED: LEVOFLOXACIN INJ 750 MG in PREMIX 1 EACH IV STA ×2 (14:16→17:27)
--- NOTE | 2017-07-01 14:21 | Emergency Department Note ---
Arrival - Arrival Chief Complaint: Shortness of Breath Stated Complaint: SOB ED Nursing Triage Note: increased sob over the past two days. has a hx of copd. denies painjust feels like she cant breathe. wears o2 at 2l at home. Mode of Arrival: Wheelchair Limitations: No Limitations Source: Patient - History of Present Illness HPI Narrative: This 82-year-old white female chronic COPD patient home O2 dependent presents with 2 days of increased cough productive of yellow-green sputum, increasing dyspnea on exertion, and occasional wheeze. She denies chest pain, diaphoresis , nausea, vomiting, chills, or fever. Currently she speaks in full sentences and is in no acute medical distress. Onset (ago): day(s) (Patient presents 3 days post onset of symptoms) Allergies/Adverse Reactions: Allergies Allergy/AdvReac Type Severity Reaction Status Date / Time Amoxicillin [From Augmentin] Allergy RASH Verified 10/07/16 13:13 cefepime [From Maxipime] Allergy Swelling Verified 10/07/16 13:13 of Lip/Tongue/Throat clavulanic acid Allergy RASH Verified 10/07/16 13:13 [From Augmentin] Diclofenac [From Arthrotec] Allergy Unknown/Unable Verified 10/07/16 13:13 to obtain misoprostol [From [employer]th[employer]c] Allergy Unknown/Unable Verified 10/07/16 13:13 to obtain Home Medications: Home Medications Medication Instructions Recorded Confirmed Type Carvedilol [Coreg] 3.125 mg PO BID 05/29/15 07/01/17 History Magnesium Chloride [Mag Delay] 64 mg PO BID 05/29/15 07/01/17 History Furosemide Tab [Lasix Tab] 40 mg PO BID 08/19/15 07/01/17 History Ipratropium [place] 0.02 % INH Q6H 05/27/16 07/01/17 History Levalbuterol Neb [Xopenex Neb] 1.25 mg RESP TX RT Q6H 05/27/16 07/01/17 History Gabapentin Cap/Tab [Neurontin 100 mg PO BID 10/07/16 07/01/17 History Cap/Tab] Potassium Chloride Cap/Tab [K Dur] 20 meq PO DAILY 01/26/17 07/01/17 History Allopurinol 200 mg PO DAILY 03/27/17 07/01/17 History Potassium Chloride Cap/Tab [K Dur] 10 meq PO BEDTIME 03/27/17 07/01/17 History Review of System - Review of System 12 point system: reviewed and no additional remarkable complaints except as stated - Review of System Constitutional: Present: as per HPI Respiratory: Present: as per HPI Cardiovascular: Present: as per HPI Gastrointestinal: Present: as per HPI Medical,Surgical,& Family Hx - Medical History Cardio: History of: CHF, Hypertension Psychological: History of: Depression Neurology: History of: Peripheral Neuropathy No history of: Seizures HEENT: History of: Eye Problem (glasses), Dental Problems (upper and lower) Endocrine: History of: Dyslipidemia Rheumatology: History of;: Gout, Rheumatoid Arthritis Respiratory: History of: Bronchitis (chronic), COPD, Pneumonia Gastrointestinal: History of: GI Problems (pancreatitis caused by gallbladder disease) Hematology: History of: Anemia Other: History of: Miscellaneous Medical Problems (easy to bruise) - Surgical History Cardiac Surgeries: Sugical HX of: Cardiac Catheterization (1 stent) HEENT Surgeries: Surgical HX of: Eye Surgery (bilateral cataract surgery) Abdominal Surgeries: Surgical HX of: Abdominal Surgery, Appendectomy, Cholecystectomy, Colonoscopy, EGD Reproductive Surgeries: Surgical HX of;: Gynecologic Surgery, Hysterectomy - Family History Family History: Reports;: Family Cancer (son), Family Heart Disease (mother), Family Hypertension (mother and father), Family Stroke (father) - Social History Smoking Status: Former smoker Exam Physical Examination: GENERAL: Well developed, well nourished elderly white female in no acute distress. HEENT: Normocephalic. No trauma. Moist mucous membranes. EOMI. PERRLA. ENT NML NECK: Supple. No adenopathy. CARDIAC: Regular. No murmurs. Heart rate 79 CHEST: Scattered occasional expiratory wheeze and rhonchus with bibasilar Velcro rales. No respiratory distress. O2 sat 96% ABDOMEN: Soft. Nontender. Active bowel sounds. EXTREMITIES: No trauma. Normal ROM. No pedal edema. SKIN: No diaphoresis. No rash. NEURO: Alert. Neuro intact no focal deficits. Vital Signs: Vital Signs Temperature 99.3 F 07/01/17 11:35 Pulse Rate 82 07/01/17 13:45 Respiratory Rate 22 07/01/17 13:45 Blood Pressure 132/72 07/01/17 13:45 O2 Sat by Pulse Oximetry 94 L 07/01/17 13:45 Course - Reevaluation(s) Reevaluation #1: Discussed with patient her condition and although laboratory is basically normal she still feels tenuous and with her extensive history we will proceed with at minimum an observation admission. - Consultations Consultation #1: Discussed with Dr. Asha Licona who will admit for Dr. Jose Whitaker. Results - Labs CBC & BMP: 07/01/17 15:12 07/01/17 15:12 Labs: I have reviewed the laboratory noted for leukopenia and relative normality of all results. - Impressions EKG: Sinus rhythm at 76 with normal AL interval and intraventricular conduction block with nonspecific ST changes. No acute injury pattern noted. - Diagnostic Findings Procedure: Chest x-ray: image reviewed by me, report reviewed by me (Evidence of advanced COPD with right middle lobe atelectasis and bibasilar interstitial fibrosis chronic in appearance) Disposition Clinical Impression: Exacerbation of COPD Case discussed with: patient, patient's family Disposition: Still a Patient Condition: Stable Time of Disposition: 17:20
[2017-07-01] MEDS ORDERED: ALBUTEROL 2.5 MG/3 ML NEB RESP TX SCH (14:30)
[2017-07-01] MEDS ORDERED: ALBUTEROL 2.5 MG/3 ML NEB RESP TX ONE (14:49)
[2017-07-01] MEDS ORDERED: methylPREDNISolone SOD SUC 125 MG/2 ML VIAL ONE (15:15)
[2017-07-01] MEDS ORDERED: LEVOFLOXACIN INJ 150 ML IV ONE (15:15)
[2017-07-01 15:17] LABS: Basophils % 0.8 % (0.0-0.8); Eosinophils # 0.2 10*3/uL (0.0-0.87); Eosinophils % 6.3 % (0.00-10.9); Hematocrit 35.5 VOL% (35.7-47.0); Hemoglobin 11.5 GM/DL (12.0-16.0); Immature Granulocytes % 0.3 %; Immature Granulocytes Absolute 0.01 #; Lymphocytes # 1.3 10*3/uL (1.4-4.0); Lymphocytes % 34.1 % (21.3-54.2); Mean Corpuscular HGB Conc 32.4 GM/DL (32-36); Mean Corpuscular Hemoglobin 29 PG (27-34); Mean Corpuscular Volume 90.8 FL (87-102); Mean Platelet Volume 11.1 FL (9.6-12.0); Monocytes # 0.4 10*3/uL (0.11-0.8); Monocytes % 10.8 % (1.7-12.7); Neutrophils # 1.8 10*3/uL (1.4-7.4); Neutrophils % 47.7 % (38.7-73.9); Platelet Count 118 T/CUMM (130-400); Red Blood Count 3.91 MC/CUMM (3.8-5.5); Red Cell Distribution Width 14.4 % (9.3-17.3); White Blood Count 3.8 T/CUMM (4-12)
[2017-07-01 15:26] LABS: INR 0.9; Partial Thromboplastin Time 31.5 SECS (0-40)
--- NOTE | 2017-07-01 15:32 | Order Completion Report ---
See report scanned to EMR
[2017-07-01 15:45] LABS: Alanine Aminotransferase 13 U/L (13-56); Albumin 3.4 G/DL (3.4-5.0); Alkaline Phosphatase 118 U/L (45-117); Aspartate Amino Transferase 17 U/L (0-37); Blood Urea Nitrogen 21 MG/DL (7-18); Calcium 8.5 MG/DL (8.5-10.1); Glucose 68 MG/DL (74-106); Osmolality,Calculated 279.4 MOS/KG (273-304); Potassium 4.2 MMOL/L (3.5-5.1); Sodium 140 MMOL/L (136-145); Total Protein 6.9 G/DL (6.4-8.3); Troponin I Only < 0.015 NG/ML (0.00-0.045)
[2017-07-01] MEDS ORDERED: ALBUTEROL/IPRATROPIUM 3 ML NEB RESP TX PRN (17:22)
[2017-07-01] MEDS ORDERED: ONDANSETRON 4 MG/2 ML VIAL IV PRN (17:22)
[2017-07-01] MEDS ORDERED: methylPREDNISolone SOD SUC 125 MG/2 ML VIAL IV SCH (17:30)
[2017-07-01] MEDS: FUROSEMIDE 40 MG/4 ML VIAL IV SCH (20:17)
[2017-07-01] MEDS: CARVEDILOL 3.125 MG TABLET PO SCH (21:24)
[2017-07-01] MEDS: ALLOPURINOL 100 MG TABLET PO SCH ×2 (21:24→21:27)
[2017-07-01] MEDS: GABAPENTIN 100 MG CAPSULE PO SCH (21:24)
[2017-07-01] MEDS: methylPREDNISolone SOD SUC 40 MG/1 ML VIAL IV SCH (22:12)
[2017-07-02] MEDS: IPRATROPIUM 500 MCG/2.5 ML NEB RESP TX SCH ×4 (01:50→19:02)
[2017-07-02] MEDS: LEVALBUTEROL 1.25 MG/3 ML NEB RESP TX SCH ×4 (01:52→19:02)
[2017-07-02 05:02] LABS: Hematocrit 32.1 VOL% (35.7-47.0); Hemoglobin 10.4 GM/DL (12.0-16.0); Immature Granulocytes Absolute 0.01 #; Lymphocytes # 0.4 10*3/uL (1.4-4.0); Lymphocytes % 40.2 % (21.3-54.2); Mean Corpuscular HGB Conc 32.4 GM/DL (32-36); Mean Corpuscular Hemoglobin 29 PG (27-34); Mean Corpuscular Volume 89.2 FL (87-102); Mean Platelet Volume 12.3 FL (9.6-12.0); Monocytes % 4.1 % (1.7-12.7); Neutrophils # 0.5 10*3/uL (1.4-7.4); Neutrophils % 54.7 % (38.7-73.9); Platelet Count 114 T/CUMM (130-400); Red Cell Distribution Width 14.1 % (9.3-17.3)
[2017-07-02 05:17] LABS: Calcium 8.5 MG/DL (8.5-10.1); Osmolality,Calculated 280.5 MOS/KG (273-304); Potassium 4.2 MMOL/L (3.5-5.1)
[2017-07-02] MEDS: methylPREDNISolone SOD SUC 40 MG/1 ML VIAL IV SCH ×4 (05:52→21:49)
[2017-07-02 05:54] LABS: Lymphocytes 39 % (20-55); Platelet Estimate Decreased; Segmented Neutrophils 58 % (50-85); Total Cells Counted 100
[2017-07-02 05:55] LABS: Giant Platelets Few; Hypochromasia 1+; Microcytosis Slight; Ovalocytes Slight
[2017-07-02] MEDS: FUROSEMIDE 40 MG/4 ML VIAL IV SCH ×2 (08:50→16:31)
[2017-07-02] MEDS: CARVEDILOL 3.125 MG TABLET PO SCH ×2 (08:51→16:42)
[2017-07-02] MEDS: POTASSIUM CHLORIDE 10 MEQ TABLET PO SCH (08:51)
[2017-07-02] MEDS: GABAPENTIN 100 MG CAPSULE PO SCH ×2 (08:55→21:07)
[2017-07-02] MEDS: ALLOPURINOL 100 MG TABLET PO SCH ×2 (08:58→21:07)
[2017-07-02] MEDS ORDERED: PANTOPRAZOLE 40 MG TABLET PO SCH (09:00)
[2017-07-02] MEDS: AZITHROMYCIN INJ 250 MG in SODIUM CHLORIDE 0.9% 250 ML IV SCH (09:23)
[2017-07-02 10:35] LABS: Apearance,Urine Slightly Hazy (Clear); Bilirubin,Urine Negative (Negative); Blood, Urine Negative (Negative); Glucose,Urine (UA) Negative (Negative); Ketones,Urine Negative (Negative); Mucus,Urine Occasional /LPF (Occasional); Nitrite,Urine Negative (Negative); Protein,Urine Negative; RBC,Urine 1 /HPF (0-4); Squamous Epithelial Cell,Urine Occasional /HPF (0-10); Urine Color Yellow (Yellow); Urine Specific Gravity 1.017 (1.001-1.035); Urine Urobilinogen < 2.0 EU/DL (0.2-1.0); WBC,Urine 1 /HPF (0-6)
--- NOTE | 2017-07-02 15:18 | Internal Med History&Physical ---
Assessment and Plan (1) Shortness of breath Status: Acute Current Visit: Yes (2) COPD (chronic obstructive pulmonary disease) Status: Chronic Current Visit: Yes Qualifiers: COPD type: emphysema Emphysema type: centrilobular Qualified Code(s): J43.2 - Centrilobular emphysema (3) History of coronary artery disease Status: Chronic Current Visit: Yes (4) Hypertension Status: Chronic Current Visit: Yes Qualifiers: Hypertension type: essential hypertension Qualified Code(s): I10 - Essential (primary) hypertension (5) Nonischemic cardiomyopathy Status: Chronic Current Visit: Yes (6) Acute exacerbation of chronic obstructive airways disease Status: Acute Current Visit: Yes History of Present Illness Chief complaint: shortness of breath History of present illness: Ms. Sorensen is a 82 year old female patient of Dr. Nigel Whitaker with history of COPD/emphysema followed by Dr. Gee, recurrent bronchitis, home oxygen, HTN , dylsipidemia, known CAD/stenting, cardiomyopathy with low LVEF of about 25%, Mitral regurg, who presented to ER with acute bronchitis. She was started on Levaquin in ER. Home Medications Medication Instructions Recorded Confirmed Type Carvedilol [Coreg] 3.125 mg PO BID 05/29/15 07/01/17 History Magnesium Chloride [Mag Delay] 64 mg PO BID 05/29/15 07/01/17 History Furosemide Tab [Lasix Tab] 40 mg PO BID 08/19/15 07/01/17 History Ipratropium [place] 0.02 % INH Q6H 05/27/16 07/01/17 History Levalbuterol Neb [Xopenex Neb] 1.25 mg RESP TX RT Q6H 05/27/16 07/01/17 History Gabapentin Cap/Tab [Neurontin 100 mg PO BID 10/07/16 07/01/17 History Cap/Tab] Potassium Chloride Cap/Tab [K Dur] 20 meq PO DAILY 01/26/17 07/01/17 History Allopurinol 200 mg PO DAILY 03/27/17 07/01/17 History Potassium Chloride Cap/Tab [K Dur] 10 meq PO BEDTIME 03/27/17 07/01/17 History Allergies Allergy/AdvReac Type Severity Reaction Status Date / Time Amoxicillin [From Augmentin] Allergy RASH Verified 10/07/16 13:13 cefepime [From Maxipime] Allergy Swelling Verified 10/07/16 13:13 of Lip/Tongue/Throat clavulanic acid Allergy RASH Verified 10/07/16 13:13 [From Augmentin] Diclofenac [From Arthrotec] Allergy Unknown/Unable Verified 10/07/16 13:13 to obtain misoprostol [From Arthrotec] Allergy Unknown/Unable Verified 10/07/16 13:13 to obtain albuterol AdvReac Verified 07/02/17 00:50 Medical,Surgical,& Family Hx - Medical History Cardio: History of: CHF, CAD, Hypertension, Valvular Heart Disease Psychological: History of: Depression Neurology: History of: Peripheral Neuropathy No history of: Seizures HEENT: History of: Eye Problem (glasses), Dental Problems (upper and lower) Endocrine: History of: Dyslipidemia Rheumatology: History of;: Gout, Rheumatoid Arthritis Respiratory: History of: Bronchitis (chronic), COPD, Pneumonia Gastrointestinal: History of: GI Problems (pancreatitis caused by gallbladder disease) Musculoskeletal: History of: Musculoskeletal Problems (arthritis) Hematology: History of: Anemia Other: History of: Miscellaneous Medical Problems (easy to bruise) - Surgical History Cardiac Surgeries: Sugical HX of: Cardiac Catheterization (1 stent) HEENT Surgeries: Surgical HX of: Eye Surgery (bilateral cataract surgery) Abdominal Surgeries: Surgical HX of: Abdominal Surgery, Appendectomy, Cholecystectomy, Colonoscopy, EGD Reproductive Surgeries: Surgical HX of;: Gynecologic Surgery, Hysterectomy - Family History Family History: Reports;: Family Cancer (son), Family Heart Disease (mother), Family Hypertension (mother and father), Family Stroke (father) - Social History Smoking Status: Former smoker Frequency of Alcohol Use: None Type of Drug Use: None - Constitutional Constitutional: Present: fatigue, weakness - EENT Nose, mouth and throat: Present: nasal congestion, sinus pressure - Cardiovascular Cardiovascular: Present: dyspnea, dyspnea on exertion - Respiratory Respiratory: Present: cough, dyspnea on exertion - Gastrointestinal Gastrointestinal: Absent: nausea, vomiting - Musculoskeletal Musculoskeletal: Present: arthralgias Exam - Constitutional Vitals: Period Temp Pulse Resp BP Sys/Genao Pulse Ox Last 24 Hr 97.3 F-98.7 F 62-98 15-24 103-162/51-104 92-99 General appearance: no acute distress - Head Head exam: Present: normocephalic - Eye Eye exam: Present: EOMI - Respiratory Respiratory exam: Present: clear to auscultation bilaterally. Absent: rhonchi, wheezes - Cardiovascular Cardiovascular exam: Present: regular rate and rhythm - GI/Abdominal GI/Abdominal exam: Present: soft. Absent: tenderness - Extremities Exam Extremities exam: Absent: edema - Neurological Exam Neurological exam: Present: alert, oriented X3 - Psychiatric Psychiatric exam: Present: normal mood - Skin Skin exam: Present: warm, dry Results - Labs CBC & BMP: 07/02/17 15:32 07/02/17 03:27 - EKG EKG shows: sinus rhythm - Diagnostic Findings Procedure: Chest x-ray: report reviewed by me
--- NOTE | 2017-07-02 15:55 | Cardiology Consult Note ---
History of Present Illness - Data of Consult Patient: known to practice within the last 3 years - Consult Narrative History of present illness: Cardiology consult 82-year-old woman with nonischemic cardiomyopathy and severe COPD on continuous home O2 at 2 L/min. Presents to the ER with a 3 day history of increased shortness of breath. This patient has chronic dyspnea and easy fatigability but symptoms have intensified. She has had some cough and mostly clear sputum production. She denies fever chills or night sweats. The patient lives with her son Cesar in [place]. She was hospitalized in January with bronchitis and recurrent CHF. At home she is currently taking Lasix 40 mg twice daily and carvedilol 3.125 mg twice daily. Cardiac cath done July 01, 2014 showed a nonischemic cardia myopathy EF 25-30 % with patent coronaries and severe MR. She is status post mid RCA stent June 21, 2009. Status post right hydropneumothorax with chest tube October 09, 2008. Chronic left bundle branch block. Remote tobacco abuse, quit 20 years ago. No history of stroke. No history of diabetes. Lifetime nondrinker. CT of the chest done in January showed interstitial fibrosis and centrilobular emphysema. 5 feet 2 inches tall, 74.5 kg. Lab data today White count 1.0. White count was 3.8 yesterday. Hemoglobin 10.4 hematocrit 32.1 platelet count 114,000 Sodium 139 potassium 4.2 chloride 104 CO2 27 BUN 18 creatinine 0.80 glucose 140 BNP 323 negative troponin normal LFTs negative UA Review of systems This patient has chronic dyspnea and easy fatigability. Denies syncope sustained palpitations. No chest pain. Occasional reflux symptoms. She has dinner by 5 PM and avoids all bedtime snacks. She sleeps on one pillow and has nocturia at least 2 or 3 nightly which is chronic. She does have chronic arthritic complaints in her neck back and hands. She does tire easily. O2 sat 97% on 2 L. Blood pressure 110/62. Pulse is 94 and regular Bilateral arcus. No xanthelasma. Carotids is known she has a soft left bruit lungs revealed decreased breath sounds with rhonchi in both bases. Rhythm is regular. There is a soft holosystolic murmur at the apex Abdomen soft benign femoral pulses 2+ distal pulses are 1+ no leg edema. Impression Bronchitis with probable superimposed CHF. Chest x-ray shows cardiomegaly and chronic interstitial changes in the bases but there are no effusions, And both gutters are clear. Nonischemic cardia myopathy EF in the 25-30% range Widely patent coronary arteries and severe MR by cardiac cath June 2014 Status post mid RCA stent June 21, 2009 Status post right hydropneumothorax with chest tube October 09, 2008 Chronic left bundle branch block Remote tobacco abuse No history of stroke. CT chest January 2017 showed interstitial fibrosis and centrilobular emphysema 5 feet 2 inches tall 74.5 kg. Severe COPD on continuous home O2 at 2 L/min White count today 1.0 Plan Echo Doppler Recheck CBC BNP 40 mg IV Lasix twice daily Antibiotics steroids and nebs Continuous O2 at 2 L/min. Titrate to keep sat greater than 90% CC: Nigel Whitaker, DO - Home Medications and Allergies Home Medications: Home Medications Medication Instructions Recorded Confirmed Type Carvedilol [Coreg] 3.125 mg PO BID 05/29/15 07/01/17 History Magnesium Chloride [Mag Delay] 64 mg PO BID 05/29/15 07/01/17 History Furosemide Tab [Lasix Tab] 40 mg PO BID 08/19/15 07/01/17 History Ipratropium [place] 0.02 % INH Q6H 05/27/16 07/01/17 History Levalbuterol Neb [Xopenex Neb] 1.25 mg RESP TX RT Q6H 05/27/16 07/01/17 History Gabapentin Cap/Tab [Neurontin 100 mg PO BID 10/07/16 07/01/17 History Cap/Tab] Potassium Chloride Cap/Tab [K Dur] 20 meq PO DAILY 01/26/17 07/01/17 History Allopurinol 200 mg PO DAILY 03/27/17 07/01/17 History Potassium Chloride Cap/Tab [K Dur] 10 meq PO BEDTIME 03/27/17 07/01/17 History Allergies/Adverse Reactions: Allergies Allergy/AdvReac Type Severity Reaction Status Date / Time Amoxicillin [From Augmentin] Allergy RASH Verified 10/07/16 13:13 cefepime [From Maxipime] Allergy Swelling Verified 10/07/16 13:13 of Lip/Tongue/Throat clavulanic acid Allergy RASH Verified 10/07/16 13:13 [From Augmentin] Diclofenac [From Arthrotec] Allergy Unknown/Unable Verified 10/07/16 13:13 to obtain misoprostol [From Arthrotec] Allergy Unknown/Unable Verified 10/07/16 13:13 to obtain albuterol AdvReac Verified 07/02/17 00:50 Medical,Surgical,& Family Hx - Medical History Cardio: History of: CHF, Hypertension Psychological: History of: Depression Neurology: History of: Peripheral Neuropathy No history of: Seizures HEENT: History of: Eye Problem (glasses), Dental Problems (upper and lower) Endocrine: History of: Dyslipidemia Rheumatology: History of;: Gout, Rheumatoid Arthritis Respiratory: History of: Bronchitis (chronic), COPD, Pneumonia Gastrointestinal: History of: GI Problems (pancreatitis caused by gallbladder disease) Hematology: History of: Anemia Other: History of: Miscellaneous Medical Problems (easy to bruise) - Surgical History Cardiac Surgeries: Sugical HX of: Cardiac Catheterization (1 stent) HEENT Surgeries: Surgical HX of: Eye Surgery (bilateral cataract surgery) Abdominal Surgeries: Surgical HX of: Abdominal Surgery, Appendectomy, Cholecystectomy, Colonoscopy, EGD Reproductive Surgeries: Surgical HX of;: Gynecologic Surgery, Hysterectomy - Family History Family History: Reports;: Family Cancer (son), Family Heart Disease (mother), Family Hypertension (mother and father), Family Stroke (father) - Social History Smoking Status: Former smoker Frequency of Alcohol Use: None Type of Drug Use: None Physical Examination Vital Signs Temp Pulse Resp BP Pulse Ox 99.3 F 79 24 95/60 96 07/01/17 11:35 07/01/17 11:35 07/01/17 11:35 07/01/17 11:35 07/01/17 11:35 Result/EKG - Labs CBC & BMP: 07/02/17 03:27 07/02/17 03:27 Labs: Laboratory Results - last 24 hr 07/01/17 07/01/17 07/02/17 15:12 15:12 03:27 WBC 1.0 L D RBC 3.60 L Hgb 10.4 L Hct 32.1 L MCV 89.2 MCH 29 MCHC 32.4 RDW 14.1 Plt Count 114 L MPV 12.3 H Neut % (Auto) 54.7 Lymph % (Auto) 40.2 [place] % (Auto) 4.1 Eos % (Auto) 0.0 Baso % (Auto) 0.0 Neut # (Auto) 0.5 L Lymph # (Auto) 0.4 L [place] # (Auto) 0.0 L Eos # (Auto) 0.0 Baso # (Auto) 0.0 Total Counted 100 Immature Gran % 1.0 Nucleated RBC % 0.0 Immature Gran # 0.01 Segmented Neutrophils 58 Lymphocytes 39 Monocytes 3 Nucleated RBCs # 0.00 Platelet Estimate Decreased Giant Platelets Few Immature Plt Fraction 0.0 Hypochromasia 1+ Microcytosis Slight Ovalocytes Slight Morphology Comment Sodium 140 Potassium 4.2 Chloride 104 Carbon Dioxide 30 Anion Gap 10.2 BUN 21 H Creatinine 0.90 GFR Calculation 63 BUN/Creatinine Ratio 23.00 H Glucose 68 L Calculated Osmolality 279.4 Calcium 8.5 Total Bilirubin 0.40 AST 17 ALT 13 Alkaline Phosphatase 118 H Total Creatine Kinase 41 CK-MB (CK-2) < 1.0 Troponin I < 0.015 B-Natriuretic Peptide 323 H Total Protein 6.9 Albumin 3.4 Globulin 3.5 Albumin/Globulin Ratio 0.9 L Urine Color Urine Appearance Urine pH Ur Specific [place] Urine Protein Urine Glucose (UA) Urine Ketones Urine Blood Urine Nitrate Urine Bilirubin Urine Urobilinogen Urine Leukocytes Urine RBC Urine WBC Ur Squamous Epith Cells Urine Mucus Ur Culture Indicated? 07/02/17 07/02/17 03:27 09:30 WBC RBC Hgb Hct MCV MCH MCHC RDW Plt Count MPV Neut % (Auto) Lymph % (Auto) [place] % (Auto) Eos % (Auto) Baso % (Auto) Neut # (Auto) Lymph # (Auto) [place] # (Auto) Eos # (Auto) Baso # (Auto) Total Counted Immature Gran % Nucleated RBC % Immature Gran # Segmented Neutrophils Lymphocytes Monocytes Nucleated RBCs # Platelet Estimate Giant Platelets Immature Plt Fraction Hypochromasia Microcytosis Ovalocytes Morphology Comment Sodium 139 Potassium 4.2 Chloride 104 Carbon Dioxide 27 Anion Gap 12.2 BUN 18 Creatinine 0.80 GFR Calculation 72 BUN/Creatinine Ratio 22.00 H Glucose 140 H Calculated Osmolality 280.5 Calcium 8.5 Total Bilirubin AST ALT Alkaline Phosphatase Total Creatine Kinase CK-MB (CK-2) Troponin I B-Natriuretic Peptide Total Protein Albumin Globulin Albumin/Globulin Ratio Urine Color Yellow Urine Appearance Slightly hazy Urine pH 6.0 Ur Specific [place] 1.017 Urine Protein Negative Urine Glucose (UA) Negative Urine Ketones Negative Urine Blood Negative Urine Nitrate Negative Urine Bilirubin Negative Urine Urobilinogen < 2.0 H Urine Leukocytes Trace Urine RBC 1 Urine WBC 1 Ur Squamous Epith Cells Occasional Urine Mucus Occasional Ur Culture Indicated? Not indicated
[2017-07-02 15:56] LABS: Hematocrit 31.8 VOL% (35.7-47.0); Hemoglobin 10.5 GM/DL (12.0-16.0); Immature Granulocytes % 0.3 %; Immature Granulocytes Absolute 0.01 #; Lymphocytes # 0.6 10*3/uL (1.4-4.0); Lymphocytes % 17.4 % (21.3-54.2); Mean Corpuscular Hemoglobin 29 PG (27-34); Mean Corpuscular Volume 89.1 FL (87-102); Mean Platelet Volume 11.4 FL (9.6-12.0); Monocytes # 0.2 10*3/uL (0.11-0.8); Monocytes % 5.1 % (1.7-12.7); Neutrophils # 2.6 10*3/uL (1.4-7.4); Neutrophils % 77.2 % (38.7-73.9); Platelet Count 121 T/CUMM (130-400); Red Blood Count 3.57 MC/CUMM (3.8-5.5); Red Cell Distribution Width 14.1 % (9.3-17.3); White Blood Count 3.3 T/CUMM (4-12)
[2017-07-02] MEDS ORDERED: LEVALBUTEROL 1.25 MG/3 ML NEB RESP TX SCH (21:06)
[2017-07-02] MEDS ORDERED: IPRATROPIUM 500 MCG/2.5 ML NEB RESP TX SCH (21:07)
[2017-07-03] MEDS: LEVALBUTEROL 1.25 MG/3 ML NEB RESP TX SCH ×4 (00:14→20:08)
[2017-07-03] MEDS: IPRATROPIUM 500 MCG/2.5 ML NEB RESP TX SCH ×4 (00:14→20:08)
--- NOTE | 2017-07-03 01:33 | Event Note ---
While seeing her today on , Monday afternoon, she reported being so short of breath that she could not walk across the room to the bathroom. She has known CAD/stenting and cardiomyopathy with valve disease. Consulting Dr. Ramos for further evaluation. Although she has advanced COPD, she is breathing better after treatment in the ER for acute bronchitis.
[2017-07-03] MEDS: methylPREDNISolone SOD SUC 40 MG/1 ML VIAL IV SCH ×3 (06:20→21:38)
[2017-07-03 06:53] LABS: Calcium 8.3 MG/DL (8.5-10.1); Osmolality,Calculated 286.5 MOS/KG (273-304); Potassium 3.9 MMOL/L (3.5-5.1)
[2017-07-03] MEDS ORDERED: MAGNESIUM CHLORIDE 64 MG TABLET PO SCH (09:00)
[2017-07-03 09:11] LABS: Hematocrit 34.6 VOL% (35.7-47.0); Hemoglobin 11.3 GM/DL (12.0-16.0); Immature Granulocytes % 0.8 %; Immature Granulocytes Absolute 0.03 #; Lymphocytes # 0.5 10*3/uL (1.4-4.0); Lymphocytes % 12.3 % (21.3-54.2); Mean Corpuscular HGB Conc 32.7 GM/DL (32-36); Mean Corpuscular Hemoglobin 29 PG (27-34); Mean Corpuscular Volume 90.1 FL (87-102); Mean Platelet Volume 11.6 FL (9.6-12.0); Neutrophils # 3.4 10*3/uL (1.4-7.4); Neutrophils % 85.9 % (38.7-73.9); Platelet Count 131 T/CUMM (130-400); Red Blood Count 3.84 MC/CUMM (3.8-5.5); Red Cell Distribution Width 14.3 % (9.3-17.3)
[2017-07-03] MEDS: POTASSIUM CHLORIDE 10 MEQ TABLET PO SCH (09:46)
[2017-07-03] MEDS: FAMOTIDINE 20 MG TABLET PO SCH (09:46)
[2017-07-03] MEDS: CARVEDILOL 3.125 MG TABLET PO SCH ×2 (09:47→16:14)
[2017-07-03] MEDS: FUROSEMIDE 40 MG/4 ML VIAL IV SCH ×2 (09:47→16:14)
[2017-07-03] MEDS: GABAPENTIN 100 MG CAPSULE PO SCH ×2 (09:47→21:38)
[2017-07-03] MEDS: AZITHROMYCIN INJ 250 MG in SODIUM CHLORIDE 0.9% 250 ML IV SCH (09:53)
--- NOTE | 2017-07-03 09:56 | Cardiology Progress Note ---
Assessment and Plan - Time spent with patient Time spent with patient: Less than 30 minutes (1) Bronchitis Status: Acute Assessment and plan: See plan of care listed below. Current Visit: Yes (2) Congestive heart failure Status: Chronic Assessment and plan: See plan of care listed below. Current Visit: No Qualifiers: Congestive heart failure type: systolic Congestive heart failure chronicity : acute on chronic Qualified Code(s): I50.23 - Acute on chronic systolic ( congestive) heart failure (3) Nonischemic cardiomyopathy Status: Chronic Assessment and plan: See plan of care listed below. Current Visit: Yes (4) History of coronary artery disease Status: Chronic Assessment and plan: See plan of care listed below. Current Visit: Yes (5) Left bundle branch block Status: Chronic Assessment and plan: See plan of care listed below. Current Visit: No (6) COPD (chronic obstructive pulmonary disease) Status: Chronic Assessment and plan: See plan of care listed below. Current Visit: Yes Qualifiers: COPD type: emphysema Emphysema type: centrilobular Qualified Code(s): J43.2 - Centrilobular emphysema Cardiology - PN: Subj Interval history: [employer] Supervisor: Dr. Ramos (last seen in clinic 04/27/15) SUMMARY: Ms. Sorensen is an 82 y/o WF who was admitted to the hospital with bronchitis with probable superimposed CHF. She has a history of coronary artery disease, nonischemic cardiomyopathy, chronic left bundle branch block, remote history of tobacco use, severe COPD on continuous home O2 at 2L/min. JULY 03, 2017: Ms. Sorensen is seen sitting in the bedside chair this morning. She denies any complaints presently. She continues to have some mild dyspnea on exertion and fatigue with ambulating back and forth to the bathroom. She has chronic orthopnea and is unable to lie flat at night to sleep. At home, she sleeps in her recliner. She has no significant edema, although her BNP is slightly elevated today from yesterday. Creatinine is also a little elevated today. She remains in sinus rhythm per teletypesetter monitor with well controlled rate. Blood pressure was stable at 114/75 this morning. She is maintaining SpO2> 92% on O2 @ 2L/min via NBP. We will continue to monitor. Patient with history of CAD not on aspirin. She has an allergy to Arthrotec (diclofenac) but reports she has taken a baby aspirin in the past without difficulty. She reports one of her doctors discontinued her aspirin years ago but she is unsure why. We will resume this medication and monitor. Dr. Zepeda to follow with further plan and addendum. REVIEW OF SYSTEMS: CARDIAC: Denies chest pain or palpitations. RESPIRATORY: Denies shortness of breath except when ambulating. IMPRESSION/PLAN: - BRONCHITIS: She is on antibiotics, steroids, and nebs. Defer further management to attending. - SUPERIMPOSED CHF: Continue diuresis with IV Lasix BID. - NONISCHEMIC CARDIOMYOPATHY: Last EF in January 2017 was 30%. Will repeat echo doppler. - CORONARY ARTERY DISEASE: She is status post mid RCA stent 06/21/09. She had widely patent coronary arteries and severe MR by cardiac cath 06/2014. Continue beta melany. Will check lipid panel in AM. - CHRONIC LBBB: Chronic. - SEVERE COPD: Continue O2. Exam (Progress Note) - Constitutional Vitals: Period Temp Pulse Resp BP Sys/Genao Pulse Ox Last 24 Hr 97.9 F-99.1 F 61-102 15-20 103-118/51-75 67-99 Exam: General appearance: Appears well. Pleasant and cooperative. Overweight, no acute distress. Head exam: Present: normal inspection, normocephalic, atraumatic. Absent: hematoma, laceration Eye exam: Present: EOMI. Absent: conjunctival injection, nystagmus, periorbital swelling, scleral icterus, laceration to eyelids, jaundice Pupils: Present: PERRL. Absent: constricted, dilated, fixed, irregular, unequal ENT exam: Present: normal exam, normal external ear exam, mucous membranes moist. Neck exam: Present: normal inspection, midline trachea. Faint left carotid bruit. Absent: masses, lymphadenopathy, tenderness, thyromegaly Respiratory exam: Present: Few crackles in the bases with diminished breath sounds posteriorly, otherwise clear to auscultation bilaterally. O2 @ 2L/min via NBP. Absent: accessory muscle use, chest wall tenderness, rhonchi, wheezing. Cardiovascular exam: Present: regular rate and rhythm. Soft systolic murmur. Absent: gallop, JVD, rubs GI/Abdominal exam: Present: normal bowel sounds, soft. Absent: distended, firm , hernia, mass, tenderness. Extremities exam: Present: Normal Gait, No Clubbing, No Cyanosis, Upper Extr. Pulses 2+, Lower Extr. Pulses 2+, No edema. Capillary refill less than 3 seconds. Musculoskeletal: Present: No Fluid Collection, No Pain, Normal Range of Motion Back exam: Present: normal inspection. Absent: muscle spasm, vertebral tenderness Neurological exam: Present: awake, alert, oriented X3, Moves all extremities well without hemiparesis or paralysis. Grossly intact without resting or essential tremor Psychiatric exam: Present: normal affect, normal mood Skin exam: Present: normal color, warm, dry, intact. Absent: cyanosis, diaphoretic, rash, urticaria Result/EKG - Labs CBC & BMP: 07/03/17 08:54 07/03/17 06:14 Lab Results: I have reviewed the past 24 hour labs Labs: Laboratory Results - last 24 hr 07/02/17 07/02/17 07/03/17 09:30 15:32 06:14 WBC 3.3 L D RBC 3.57 L Hgb 10.5 L Hct 31.8 L MCV 89.1 MCH 29 MCHC 33.0 RDW 14.1 Plt Count 121 L MPV 11.4 Neut % (Auto) 77.2 H Lymph % (Auto) 17.4 L [place] % (Auto) 5.1 Eos % (Auto) 0.0 Baso % (Auto) 0.0 Neut # (Auto) 2.6 Lymph # (Auto) 0.6 L [place] # (Auto) 0.2 Eos # (Auto) 0.0 Baso # (Auto) 0.0 Immature Gran % 0.3 Nucleated RBC % 0.0 Immature Gran # 0.01 Nucleated RBCs # 0.00 Immature Plt Fraction 0.0 Sodium 139 Potassium 3.9 Chloride 102 Carbon Dioxide 27 Anion Gap 13.9 BUN 36 H Creatinine 1.20 H GFR Calculation 44 BUN/Creatinine Ratio 30.00 H Glucose 133 H Calculated Osmolality 286.5 Calcium 8.3 L B-Natriuretic Peptide Urine Color Yellow Urine Appearance Slightly hazy Urine pH 6.0 Ur Specific [place] 1.017 Urine Protein Negative Urine Glucose (UA) Negative Urine Ketones Negative Urine Blood Negative Urine Nitrate Negative Urine Bilirubin Negative Urine Urobilinogen < 2.0 H Urine Leukocytes Trace Urine RBC 1 Urine WBC 1 Ur Squamous Epith Cells Occasional Urine Mucus Occasional Ur Culture Indicated? Not indicated 07/03/17 07/03/17 06:14 08:54 WBC 4.0 RBC 3.84 Hgb 11.3 L Hct 34.6 L MCV 90.1 MCH 29 MCHC 32.7 RDW 14.3 Plt Count 131 MPV 11.6 Neut % (Auto) 85.9 H Lymph % (Auto) 12.3 L [place] % (Auto) 1.0 L Eos % (Auto) 0.0 Baso % (Auto) 0.0 Neut # (Auto) 3.4 Lymph # (Auto) 0.5 L [place] # (Auto) 0.0 L Eos # (Auto) 0.0 Baso # (Auto) 0.0 Immature Gran % 0.8 Nucleated RBC % 0.0 Immature Gran # 0.03 Nucleated RBCs # 0.00 Immature Plt Fraction 0.0 Sodium Potassium Chloride Carbon Dioxide Anion Gap BUN Creatinine GFR Calculation BUN/Creatinine Ratio Glucose Calculated Osmolality Calcium B-Natriuretic Peptide 481 H Urine Color Urine Appearance Urine pH Ur Specific [place] Urine Protein Urine Glucose (UA) Urine Ketones Urine Blood Urine Nitrate Urine Bilirubin Urine Urobilinogen Urine Leukocytes Urine RBC Urine WBC Ur Squamous Epith Cells Urine Mucus Ur Culture Indicated? - EKG EKG results: interpreted by me, sinus rhythm
--- NOTE | 2017-07-03 10:14 | Family Practice Progress Note ---
Family Practice - PN: Subj Interval history: Patient seen this morning and she is sitting up on the bedside in no acute distress at this time. She does state that she requires intermittent O2 although it is not on her at this present. Does get short of breath with any exertion including going to the bathroom 10-15 feet away. With her history of COPD and emphysema I do not appreciate any significant wheezing at this time and is currently taking medications appropriately. She does have a cardiomyopathy and cardiology is seeing her. Is on antibiotics and we are going to watch her. I will hold off pulmonary consult until and if she starts having any significant respiratory problems. It should be noted that the chest x-ray only reveals slightly hyperexpanded lungs associated with COPD and no flo infiltrate. Patient is having no respiratory distress at present and talks very easily. Exam (Progress Note) - Constitutional Vitals: Period Temp Pulse Resp BP Sys/Genao Pulse Ox Last 24 Hr 97.9 F-99.1 F 61-102 15-20 103-118/51-75 67-99 Exam: Generally stable at this time is alert and oriented answering all questions appropriately and in generally good spirits. HEENT neck is supple trachea midline no stridor or sore throat. No visual or auditory problems Cardiovascular rate is regular no gallop or rub 1 out of 6 throughout ejection murmur Lungs positive few rales but I do not appreciate any significant wheezing at present Abdomen soft nondistended patient ate all of her food. States her bowel and bladder are working well Extremities no clubbing cyanosis or edema Neurologically fully intact Results - Labs CBC & BMP: 07/03/17 08:54 07/03/17 06:14 Assessment and Plan (1) Acute exacerbation of chronic obstructive airways disease Status: Acute Assessment and plan: 07/03/2017: Continuing current medications. We do have her on antibiotics at this time. Her white count went down to 1 but is back up to 4 at present. This may have been an a Wills reading. Her H&H is stable at 11 and 34.6. Creatinine is 1.2 and we will monitor this closely. Current Visit: Yes (2) Shortness of breath Status: Acute Assessment and plan: 07/03/2017: Patient is on intermittent oxygen. BNP is 481. Will give an extra dose of Lasix is warranted. Current Visit: Yes (3) Nonischemic cardiomyopathy Status: Chronic Assessment and plan: 07/03/2017: Cardiology is involved. An echocardiogram scheduled for today Current Visit: Yes
[2017-07-03] MEDS: ASPIRIN EC 81 MG TABLET PO SCH (12:42)
--- NOTE | 2017-07-03 14:24 | Physician Query Form ---
CLICK EDIT DOCUMENT TO SELECT QUERY ANSWER --> OK --> SIGN Leilani Bailey RN Clinical Lithographic General Worker W) [phone] (f) [phone] [email or web address] PROVIDERS: Make your selection(s) from the choices in EACH section by typing an "x" and enter comments in the comment section. Please use your independent medical judgment in providing your response. This request does not imply that any particular answer is desired or expected. CLINICAL INDICATORS: (Providers should not edit this section) Pt. admitted with CHF and diuresed with IV Lasix. Creatinine on admission was 0.80 and increased to 1.20 with a GFR of 63. Clarify which of the following most accurately represents the patient's renal status: ( ) Acute kidney injury (non-traumatic) ( ) Acute renal failure ( ) Acute renal failure with underlying Chronic Kidney Disease (CKD) - please provide stage below ( ) CKD - please provide stage below ( ) Other, please specify: ( x ) Clinically unable to determine Chronic Kidney Disease Stages Source: National Kid[employer] Foundation ( ) Stage I (eGFR > or = 90) ( ) Stage II (eGFR 60 - 89) ( ) Stage III (eGFR 30 - 59) ( ) Stage IV (eGFR 15 - 29) ( ) Stage V (eGFR < 15 or dialysis) COMMENTS: PLEASE ALSO DOCUMENT RESPONSE IN PROGRESS NOTES AND/OR DISCHARGE SUMMARY Use of terms such as suspected, likely, or probable (associated with a specific diagnosis that is being evaluated, monitored, or treated as if it exists) are acceptable and can be restated in the discharge summary if not ruled out. MTDD
--- NOTE | 2017-07-03 14:29 | Physician Query Form ---
CLICK EDIT DOCUMENT TO SELECT QUERY ANSWER --> OK --> SIGN Leilani Bailey RN Clinical E/M Engineer W) [phone] (f) [phone] [email or web address] PROVIDERS: Make your selection(s) from the choices in EACH section by typing an "x" and enter comments in the comment section. Please use your independent medical judgment in providing your response. This request does not imply that any particular answer is desired or expected. CLINICAL INDICATORS: (Providers should not edit this section) Based on documentation of "chronic COPD, patient home O2 dependent with continuous home O2 at 2 L/min". Based on the above, could you clarify the appropriate diagnosis, if significant , that supports the above abnormalities and additional evaluation, monitoring, and/or treatment rendered: ( ) Pt. has chronic respiratory failure ( x) Pt. does not have chronic respiratory failure ( ) Other, please specify: ( ) Clinically unable to determine COMMENTS: PLEASE ALSO DOCUMENT RESPONSE IN PROGRESS NOTES AND/OR DISCHARGE SUMMARY Use of terms such as suspected, likely, or probable (associated with a specific diagnosis that is being evaluated, monitored, or treated as if it exists) are acceptable and can be restated in the discharge summary if not ruled out. MTDD
--- NOTE | 2017-07-03 18:45 | Order Completion Report ---
See report scanned to EMR
[2017-07-03] MEDS: MAGNESIUM CHLORIDE 64 MG TABLET PO SCH (21:37)
[2017-07-03] MEDS: PRAVASTATIN 20 MG TABLET PO SCH (21:39)
[2017-07-03] MEDS: ALLOPURINOL 100 MG TABLET PO SCH (21:39)
[2017-07-04] MEDS: IPRATROPIUM 500 MCG/2.5 ML NEB RESP TX SCH ×4 (02:09→20:42)
[2017-07-04] MEDS: LEVALBUTEROL 1.25 MG/3 ML NEB RESP TX SCH ×4 (02:09→20:42)
[2017-07-04 05:54] LABS: Immature Granulocytes % 0.8 %; Immature Granulocytes Absolute 0.03 #; Lymphocytes # 0.4 10*3/uL (1.4-4.0); Lymphocytes % 11.3 % (21.3-54.2); Mean Corpuscular HGB Conc 33.3 GM/DL (32-36); Mean Corpuscular Hemoglobin 29 PG (27-34); Mean Corpuscular Volume 88.2 FL (87-102); Mean Platelet Volume 12.4 FL (9.6-12.0); Monocytes # 0.1 10*3/uL (0.11-0.8); Monocytes % 3.1 % (1.7-12.7); Neutrophils % 84.8 % (38.7-73.9); Platelet Count 130 T/CUMM (130-400); Red Blood Count 3.74 MC/CUMM (3.8-5.5); Red Cell Distribution Width 14.1 % (9.3-17.3); White Blood Count 3.6 T/CUMM (4-12)
[2017-07-04] MEDS: methylPREDNISolone SOD SUC 40 MG/1 ML VIAL IV SCH ×2 (06:20→17:57)
[2017-07-04 06:34] LABS: Magnesium 1.9 MG/DL (1.8-2.4); Osmolality,Calculated 295.3 MOS/KG (273-304); Potassium 3.7 MMOL/L (3.5-5.1); Risk Ratio 2.83; VLDL CHOLESTEROL 11.4 MG/DL
[2017-07-04] MEDS: GABAPENTIN 100 MG CAPSULE PO SCH ×2 (09:09→21:20)
[2017-07-04] MEDS: MAGNESIUM CHLORIDE 64 MG TABLET PO SCH ×2 (09:10→21:20)
[2017-07-04] MEDS: LISINOPRIL 2.5 MG TABLET PO SCH (09:10)
[2017-07-04] MEDS: CARVEDILOL 3.125 MG TABLET PO SCH ×2 (09:10→16:39)
[2017-07-04] MEDS: FAMOTIDINE 20 MG TABLET PO SCH (09:10)
[2017-07-04] MEDS: ASPIRIN EC 81 MG TABLET PO SCH (09:10)
[2017-07-04] MEDS: POTASSIUM CHLORIDE 10 MEQ TABLET PO SCH (09:10)
[2017-07-04] MEDS: FUROSEMIDE 40 MG/4 ML VIAL IV SCH (09:10)
[2017-07-04] MEDS: AZITHROMYCIN INJ 250 MG in SODIUM CHLORIDE 0.9% 250 ML IV SCH (10:05)
--- NOTE | 2017-07-04 15:55 | Cardiology Progress Note ---
Assessment and Plan - Time spent with patient Time spent with patient: Less than 30 minutes (1) Bronchitis Status: Acute Assessment and plan: See plan of care listed below. Current Visit: Yes (2) Congestive heart failure Status: Chronic Assessment and plan: See plan of care listed below. Current Visit: No Qualifiers: Congestive heart failure type: systolic Congestive heart failure chronicity : acute on chronic Qualified Code(s): I50.23 - Acute on chronic systolic ( congestive) heart failure (3) Nonischemic cardiomyopathy Status: Chronic Assessment and plan: See plan of care listed below. Current Visit: Yes (4) History of coronary artery disease Status: Chronic Assessment and plan: See plan of care listed below. Current Visit: Yes (5) Left bundle branch block Status: Chronic Assessment and plan: See plan of care listed below. Current Visit: No (6) COPD (chronic obstructive pulmonary disease) Status: Chronic Assessment and plan: See plan of care listed below. Current Visit: Yes Qualifiers: COPD type: emphysema Emphysema type: centrilobular Qualified Code(s): J43.2 - Centrilobular emphysema Cardiology - PN: Subj Interval history: Product Controller: Dr. Ramos (last seen in clinic 04/27/15) SUMMARY: Ms. Sorensen is an 82 y/o WF who was admitted to the hospital with bronchitis with probable superimposed CHF. She has a history of coronary artery disease, nonischemic cardiomyopathy, chronic left bundle branch block, remote history of tobacco use, severe COPD on continuous home O2 at 2L/min. JULY 04, 2017: Ms. Sorensen is seen resting in the bed upon exam today. She denies any complaints presently. She continues to have some mild dyspnea on exertion and fatigue with ambulating back and forth to the bathroom. She has chronic orthopnea and is unable to lie flat at night to sleep. At home, she sleeps in her recliner. She has no significant edema, although her BNP continues to rise. Creatinine is normal today. She remains in sinus rhythm per surveillance monitor with well controlled rate. Blood pressure has been stable but was a little low this afternoon. She is maintaining SpO2>92% on O2 @ 2L/min via NBP. We will continue to monitor. Patient with history of CAD has not been on aspirin. She has an allergy to Arthrotec (diclofenac) but reports she has taken a baby aspirin in the past without difficulty. She reports one of her doctors discontinued her aspirin years ago but she is unsure why. We have resumed aspirin 81mg po daily. Dr. Zepeda to follow with further plan and addendum. REVIEW OF SYSTEMS: CARDIAC: Denies chest pain or palpitations. RESPIRATORY: Denies shortness of breath except when ambulating. IMPRESSION/PLAN: - BRONCHITIS: She is on antibiotics, steroids, and nebs. Defer further management to attending. - SUPERIMPOSED CHF: Continue diuresis with Lasix 40mg po BID. - NONISCHEMIC CARDIOMYOPATHY: Last EF in January 2017 was 30%. Repeat echo revealed EF 25%, grade 1 diastolic dysfunction, mildly dilated LA and RA, mild aortic sclerosis, thickened mitral valve with moderate concentric regurgitation, mild TR. - CORONARY ARTERY DISEASE: She is status post mid RCA stent 06/21/09. She had widely patent coronary arteries and severe MR by cardiac cath 06/2014. Continue aspirin 81 mg po daily, lisinopril 2.5mg po daily, coreg 3.125mg po bid, and pravastatin 10mg po QHS. LDL 120. - CHRONIC LBBB: Chronic. - SEVERE COPD: Continue O2. Exam (Progress Note) - Constitutional Vitals: Period Temp Pulse Resp BP Sys/Genao Pulse Ox Last 24 Hr 97.1 F-98.2 F 56-80 12-20 104-120/52-65 92-100 Exam: General appearance: Appears well. Pleasant and cooperative. Overweight, no acute distress. Head exam: Present: normal inspection, normocephalic, atraumatic. Absent: hematoma, laceration Eye exam: Present: EOMI. Absent: conjunctival injection, nystagmus, periorbital swelling, scleral icterus, laceration to eyelids, jaundice Pupils: Present: PERRL. Absent: constricted, dilated, fixed, irregular, unequal ENT exam: Present: normal exam, normal external ear exam, mucous membranes moist. Neck exam: Present: normal inspection, midline trachea. Faint left carotid bruit. Absent: masses, lymphadenopathy, tenderness, thyromegaly Respiratory exam: Present: Few crackles in the bases with diminished breath sounds posteriorly, otherwise clear to auscultation bilaterally. O2 @ 2L/min via NBP. Absent: accessory muscle use, chest wall tenderness, rhonchi, wheezing. Cardiovascular exam: Present: regular rate and rhythm. Soft systolic murmur. Absent: gallop, JVD, rubs GI/Abdominal exam: Present: normal bowel sounds, soft. Absent: distended, firm , hernia, mass, tenderness. Extremities exam: Present: Normal Gait, No Clubbing, No Cyanosis, Upper Extr. Pulses 2+, Lower Extr. Pulses 2+, No edema. Capillary refill less than 3 seconds. Musculoskeletal: Present: No Fluid Collection, No Pain, Normal Range of Motion Back exam: Present: normal inspection. Absent: muscle spasm, vertebral tenderness Neurological exam: Present: awake, alert, oriented X3, Moves all extremities well without hemiparesis or paralysis. Grossly intact without resting or essential tremor Psychiatric exam: Present: normal affect, normal mood Skin exam: Present: normal color, warm, dry, intact. Absent: cyanosis, diaphoretic, rash, urticaria Result/EKG - Labs CBC & BMP: 07/04/17 05:22 07/04/17 05:22 Lab Results: I have reviewed the past 24 hour labs Labs: Laboratory Results - last 24 hr 07/04/17 07/04/17 07/04/17 05:22 05:22 05:22 WBC 3.6 L RBC 3.74 L Hgb 11.0 L Hct 33.0 L MCV 88.2 MCH 29 MCHC 33.3 RDW 14.1 Plt Count 130 MPV 12.4 H Neut % (Auto) 84.8 H Lymph % (Auto) 11.3 L [place] % (Auto) 3.1 Eos % (Auto) 0.0 Baso % (Auto) 0.0 Neut # (Auto) 3.0 Lymph # (Auto) 0.4 L [place] # (Auto) 0.1 L Eos # (Auto) 0.0 Baso # (Auto) 0.0 Immature Gran % 0.8 Nucleated RBC % 0.0 Immature Gran # 0.03 Nucleated RBCs # 0.00 Immature Plt Fraction 0.0 Sodium 141 Potassium 3.7 Chloride 102 Carbon Dioxide 30 Anion Gap 12.7 BUN 48 H D Creatinine 1.00 GFR Calculation 55 BUN/Creatinine Ratio 48.00 H Glucose 133 H Calculated Osmolality 295.3 Calcium 8.0 L Magnesium 1.9 B-Natriuretic Peptide 696 H Triglycerides 57 Cholesterol 226 H LDL Cholesterol 120.0 VLDL Cholesterol 11.4 HDL Cholesterol 80 H Heart Disease Risk Ratio 2.83 - EKG EKG results: interpreted by me, sinus rhythm
[2017-07-04] MEDS: FUROSEMIDE 40 MG TABLET PO SCH (16:39)
--- NOTE | 2017-07-04 17:27 | Family Practice Progress Note ---
Family Practice - PN: Subj Interval history: 07/03/2017 patient seen this morning and she is sitting up on the bedside in no acute distress at this time. She does state that she requires intermittent O2 although it is not on her at this present. Does get short of breath with any exertion including going to the bathroom 10-15 feet away. With her history of COPD and emphysema I do not appreciate any significant wheezing at this time and is currently taking medications appropriately. She does have a cardiomyopathy and cardiology is seeing her. Is on antibiotics and we are going to watch her. I will hold off pulmonary consult until and if she starts having any significant respiratory problems. It should be noted that the chest x-ray only reveals slightly hyperexpanded lungs associated with COPD and no flo infiltrate. Patient is having no respiratory distress at present and talks very easily. 07/04/2017 patient seen she is doing continuing to better. We are going to transition her from IV to p.o. steroids in the morning and discharge her hopefully tomorrow. She is without significant wheezing at this time. Not any chest pain. It should be noted she easily turns around and goes back quickly, I am making sure that she can tolerate home. Exam (Progress Note) - Constitutional Vitals: Period Temp Pulse Resp BP Sys/Genao Pulse Ox Last 24 Hr 97.1 F-99.7 F 56-82 12-20 97-120/49-65 92-100 Exam: Exam is grossly unchanged. HEENT neck is supple trachea midline Cardiovascular rate is regular no gallop or rub Lungs are clear. She only has a very slight noticeable wheeze on deep expiration Abdomen soft nondistended patient eating well Extremities no clubbing cyanosis or edema Results - Labs CBC & BMP: 07/04/17 05:22 07/04/17 05:22 Assessment and Plan (1) Acute exacerbation of chronic obstructive airways disease Status: Acute Assessment and plan: 07/03/2017: Continuing current medications. We do have her on antibiotics at this time. Her white count went down to 1 but is back up to 4 at present. This may have been an a Wills reading. Her H&H is stable at 11 and 34.6. Creatinine is 1.2 and we will monitor this closely. Current Visit: Yes (2) Shortness of breath Status: Acute Assessment and plan: 07/03/2017: Patient is on intermittent oxygen. BNP is 481. Will give an extra dose of Lasix is warranted. Current Visit: Yes (3) Nonischemic cardiomyopathy Status: Chronic Assessment and plan: 07/03/2017: Cardiology is involved. An echocardiogram scheduled for today Current Visit: Yes
[2017-07-04] MEDS: PRAVASTATIN 20 MG TABLET PO SCH (21:20)
[2017-07-04] MEDS: ALLOPURINOL 100 MG TABLET PO SCH (21:21)
[2017-07-05] MEDS: LEVALBUTEROL 1.25 MG/3 ML NEB RESP TX SCH ×2 (02:09→08:20)
[2017-07-05] MEDS: IPRATROPIUM 500 MCG/2.5 ML NEB RESP TX SCH ×2 (02:09→08:19)
[2017-07-05] MEDS: methylPREDNISolone SOD SUC 40 MG/1 ML VIAL IV SCH (06:09)
[2017-07-05 06:11] LABS: Hematocrit 34.3 VOL% (35.7-47.0); Hemoglobin 11.2 GM/DL (12.0-16.0); Immature Granulocytes % 0.6 %; Immature Granulocytes Absolute 0.02 #; Lymphocytes # 0.6 10*3/uL (1.4-4.0); Lymphocytes % 15.4 % (21.3-54.2); Mean Corpuscular HGB Conc 32.7 GM/DL (32-36); Mean Corpuscular Hemoglobin 29 PG (27-34); Mean Corpuscular Volume 89.3 FL (87-102); Mean Platelet Volume 12.3 FL (9.6-12.0); Monocytes # 0.1 10*3/uL (0.11-0.8); Monocytes % 3.9 % (1.7-12.7); Neutrophils # 2.9 10*3/uL (1.4-7.4); Neutrophils % 80.1 % (38.7-73.9); Platelet Count 119 T/CUMM (130-400); Red Blood Count 3.84 MC/CUMM (3.8-5.5); Red Cell Distribution Width 14.1 % (9.3-17.3); White Blood Count 3.6 T/CUMM (4-12)
[2017-07-05 06:38] LABS: Magnesium 2.1 MG/DL (1.8-2.4); Potassium 3.9 MMOL/L (3.5-5.1)
[2017-07-05] MEDS: GABAPENTIN 100 MG CAPSULE PO SCH (08:35)
[2017-07-05] MEDS: POTASSIUM CHLORIDE 10 MEQ TABLET PO SCH (08:35)
[2017-07-05] MEDS: FUROSEMIDE 40 MG TABLET PO SCH (08:35)
[2017-07-05] MEDS: MAGNESIUM CHLORIDE 64 MG TABLET PO SCH (08:35)
[2017-07-05] MEDS: CARVEDILOL 3.125 MG TABLET PO SCH (08:36)
[2017-07-05] MEDS: LISINOPRIL 2.5 MG TABLET PO SCH (08:36)
[2017-07-05] MEDS: FAMOTIDINE 20 MG TABLET PO SCH (08:40)
[2017-07-05] MEDS: ASPIRIN EC 81 MG TABLET PO SCH (08:45)
[2017-07-05] MEDS ORDERED: AZITHROMYCIN INJ 250 MG in SODIUM CHLORIDE 0.9% 150 ML IV SCH (09:00)
--- NOTE | 2017-07-05 09:53 | Discharge Summary ---
Hospital Course - Hospital Course Hospital Course: SUMMARY: Ms. Sorensen is an 82 y/o WF who was admitted to the hospital with bronchitis with probable superimposed CHF. She has a history of coronary artery disease, nonischemic cardiomyopathy, chronic left bundle branch block, remote history of tobacco use, severe COPD on continuous home O2 at 2L/min. she has a long history of hospital admissions for this and we actually had to taper very slowly from steroids. She has slowly improved and is wanting to go home and is able to ambulate without difficulty however she does require oxygen when she goes very far and she has oxygen at home which we will continue. Is to follow- up with me next week in the clinic. I told her to call me at any time she has any problems. Also told her to watch her weight very closely and keep up monitoring record of it. Diagnosis - Discharge Diagnosis (1) Acute exacerbation of chronic obstructive airways disease Status: Resolved (2) Shortness of breath Status: Resolved (3) Nonischemic cardiomyopathy Status: Chronic Specialty Discharge - Follow Up or Referrals Follow up with: Nigel Whitaker DO [Primary Care Provider] - 07/10/17 1:00 pm (tcm 07/10/2017 1: 00) Baldomero Ramos MD [Physician] - 07/19/17 9:10 am (per Cardiology schedule) Discharge Plan - Discharge Data Disposition: Disch To Home/Self Care Condition at Discharge: Stable Discharge Diet: advance to your usual diet Activity: resume usual activities as tolerated Hygiene: no restrictions Weight Bearing at Discharge: weight bear as tolerated Driving: no restrictions Contact your physician if you experience:: fever over 101, Shortness of breath - Discharge Medications New Famotidine Tab [Pepcid Tab] 20 mg PO DAILY tablet Lisinopril [Prinivil] 2.5 mg PO DAILY #30 tablet methylPREDNISolone DOSEPAK [Medrol Dosepak] 4 mg PO DIRECTED #1 pack Potassium Chloride Cap/Tab [K Dur] 10 meq PO DAILY tablet Pravastatin [Pravachol] 10 mg PO BEDTIME #30 tablet Aspirin EC Tab 81 mg PO DAILY tablet Continue Magnesium Chloride [Mag Delay] 64 mg PO BID Carvedilol [Coreg] 3.125 mg PO BID Furosemide Tab [Lasix Tab] 40 mg PO BID Ipratropium [place] 0.02 % INH Q6H Levalbuterol Neb [Xopenex Neb] 1.25 mg RESP TX RT Q6H Allopurinol 200 mg PO DAILY Gabapentin Cap/Tab [Neurontin Cap/Tab] 100 mg PO BID Discontinued Potassium Chloride Cap/Tab [K Dur] 20 meq PO DAILY - Follow Up or Referral Follow Up: Nigel Whitaker DO [Primary Care Provider] - 07/10/17 1:00 pm (tcm 07/10/2017 1: 00) Baldomero Ramos MD [Physician] - 07/19/17 9:10 am (per Cardiology schedule) - Forms/Instructions Instructions: Lisinopril (By mouth), Pravastatin (By mouth), Methylprednisolone (By mouth), Heart Failure (GEN), Acute Bronchitis (GEN) Exam - Constitutional Vitals: Period Temp Pulse Resp BP Sys/Genao Pulse Ox Last 24 Hr 97.3 F-99.7 F 51-98 12-20 97-127/49-64 95-99 Discharge Results Procedures and tests throughout hospitalization: Pending Orders 07/01/17 15:20 Blood Culture Stat 07/06/17 04:00 Basic Metabolic Panel w/Mg IN AM Comp Blood Count Auto Diff IN AM Labs on day of discharge: Labs from last 24 hours 07/05/17 07/05/17 05:49 05:49 WBC 3.6 L RBC 3.84 Hgb 11.2 L Hct 34.3 L MCV 89.3 MCH 29 MCHC 32.7 RDW 14.1 Plt Count 119 L MPV 12.3 H Neut % (Auto) 80.1 H Lymph % (Auto) 15.4 L [place] % (Auto) 3.9 Eos % (Auto) 0.0 Baso % (Auto) 0.0 Neut # (Auto) 2.9 Lymph # (Auto) 0.6 L [place] # (Auto) 0.1 L Eos # (Auto) 0.0 Baso # (Auto) 0.0 Immature Gran % 0.6 Nucleated RBC % 0.0 Immature Gran # 0.02 Nucleated RBCs # 0.00 Immature Plt Fraction 0.0 Sodium 143 Potassium 3.9 Chloride 104 Carbon Dioxide 33 H Anion Gap 9.9 BUN 48 H Creatinine 1.00 GFR Calculation 55 BUN/Creatinine Ratio 48.00 H Glucose 121 H Calculated Osmolality 298.0 Calcium 8.0 L Magnesium 2.1 Preliminary micro results at discharge 07/01/17 15:20 Blood Culture - Preliminary Blood No growth at 3 days 10/14/17 15:20 Blood Culture - Preliminary Blood No growth at 3 days DS: Provider Date of admission: 07/01/17 17:20 Primary care physician: Nigel Whitaker DO Attending physician on admission: Nigel Whitaker DO Consults: 07/02/17 15:18 Consult to Physician [CONS] Routine Comment: known CAD/stenting and exertional SOB Consulting Provider: Baldomero Ramos Person Notified: gerda Date Notified: 07/03/17 Time Notified: 08:55 Discharging clinician: Nigel Whitaker DO
--- NOTE | 2017-07-05 10:45 | Cardiology Progress Note ---
Assessment and Plan - Time spent with patient Time spent with patient: Less than 30 minutes (1) Bronchitis Status: Acute Assessment and plan: See plan of care listed below. Current Visit: Yes (2) Congestive heart failure Status: Chronic Assessment and plan: See plan of care listed below. Current Visit: No Qualifiers: Congestive heart failure type: systolic Congestive heart failure chronicity : acute on chronic Qualified Code(s): I50.23 - Acute on chronic systolic ( congestive) heart failure (3) Nonischemic cardiomyopathy Status: Chronic Assessment and plan: See plan of care listed below. Current Visit: Yes (4) History of coronary artery disease Status: Chronic Assessment and plan: See plan of care listed below. Current Visit: Yes (5) Left bundle branch block Status: Chronic Assessment and plan: See plan of care listed below. Current Visit: No (6) COPD (chronic obstructive pulmonary disease) Status: Chronic Assessment and plan: See plan of care listed below. Current Visit: Yes Qualifiers: COPD type: emphysema Emphysema type: centrilobular Qualified Code(s): J43.2 - Centrilobular emphysema Cardiology - PN: Subj Interval history: Field Sampling Technician: Dr. Ramos (last seen in clinic 04/27/15) SUMMARY: Ms. Sorensen is an 82 y/o WF who was admitted to the hospital with bronchitis with probable superimposed CHF. She has a history of coronary artery disease, nonischemic cardiomyopathy, chronic left bundle branch block, remote history of tobacco use, severe COPD on continuous home O2 at 2L/min. JULY 05, 2017: Ms. Sorensen is seen resting in the bed upon exam today. She denies any complaints presently and is planned for discharge today. Her breathing is much improved. She remains in sinus rhythm per patient monitor with well controlled rate. Blood pressure has been stable but was a little low this afternoon. She is maintaining SpO2>92% on O2 @ 2L/min via NBP. Patient with history of CAD has not been on aspirin. She has an allergy to Arthrotec ( diclofenac) but reports she has taken a baby aspirin in the past without difficulty. She reports one of her doctors discontinued her aspirin years ago but she is unsure why. We have resumed aspirin 81mg po daily. She will need follow-up with Dr. Ramos to titrate GDMT for mixed CMP. if not improving, she would be a candidate for [employer] in 3 months. REVIEW OF SYSTEMS: CARDIAC: Denies chest pain or palpitations. RESPIRATORY: Denies shortness of breath except when ambulating. IMPRESSION/PLAN: - BRONCHITIS: She is on antibiotics, steroids, and nebs. Defer further management to attending. - SUPERIMPOSED CHF: Continue diuresis with Lasix 40mg po BID. - NONISCHEMIC CARDIOMYOPATHY: Last EF in January 2017 was 30%. Repeat echo revealed EF 25%, grade 1 diastolic dysfunction, mildly dilated LA and RA, mild aortic sclerosis, thickened mitral valve with moderate concentric regurgitation, mild TR. - CORONARY ARTERY DISEASE: She is status post mid RCA stent 06/21/09. She had widely patent coronary arteries and severe MR by cardiac cath 06/2014. Continue aspirin 81 mg po daily, lisinopril 2.5mg po daily, coreg 3.125mg po bid, and pravastatin 10mg po QHS. LDL 120. - CHRONIC LBBB: Chronic. - SEVERE COPD: Continue O2. Exam (Progress Note) - Constitutional Vitals: Period Temp Pulse Resp BP Sys/Genao Pulse Ox Last 24 Hr 97.3 F-99.7 F 51-98 12-20 97-127/49-64 95-99 Exam: General appearance: Appears well. Pleasant and cooperative. Overweight, no acute distress. Head exam: Present: normal inspection, normocephalic, atraumatic. Absent: hematoma, laceration Eye exam: Present: EOMI. Absent: conjunctival injection, nystagmus, periorbital swelling, scleral icterus, laceration to eyelids, jaundice Pupils: Present: PERRL. Absent: constricted, dilated, fixed, irregular, unequal ENT exam: Present: normal exam, normal external ear exam, mucous membranes moist. Neck exam: Present: normal inspection, midline trachea. Faint left carotid bruit. Absent: masses, lymphadenopathy, tenderness, thyromegaly Respiratory exam: Present: Scant crackles in the RLL, otherwise clear to auscultation bilaterally. O2 @ 2L/min via NBP. Absent: accessory muscle use, chest wall tenderness, rhonchi, wheezing. Cardiovascular exam: Present: regular rate and rhythm. Soft systolic murmur. Absent: gallop, JVD, rubs GI/Abdominal exam: Present: normal bowel sounds, soft. Absent: distended, firm , hernia, mass, tenderness. Extremities exam: Present: Normal Gait, No Clubbing, No Cyanosis, Upper Extr. Pulses 2+, Lower Extr. Pulses 2+, No edema. Capillary refill less than 3 seconds. Musculoskeletal: Present: No Fluid Collection, No Pain, Normal Range of Motion Back exam: Present: normal inspection. Absent: muscle spasm, vertebral tenderness Neurological exam: Present: awake, alert, oriented X3, Moves all extremities well without hemiparesis or paralysis. Grossly intact without resting or essential tremor Psychiatric exam: Present: normal affect, normal mood Skin exam: Present: normal color, warm, dry, intact. Absent: cyanosis, diaphoretic, rash, urticaria Result/EKG - Labs CBC & BMP: 07/05/17 05:49 07/05/17 05:49 Lab Results: I have reviewed the past 24 hour labs Labs: Laboratory Results - last 24 hr 07/05/17 07/05/17 05:49 05:49 WBC 3.6 L RBC 3.84 Hgb 11.2 L Hct 34.3 L MCV 89.3 MCH 29 MCHC 32.7 RDW 14.1 Plt Count 119 L MPV 12.3 H Neut % (Auto) 80.1 H Lymph % (Auto) 15.4 L [place] % (Auto) 3.9 Eos % (Auto) 0.0 Baso % (Auto) 0.0 Neut # (Auto) 2.9 Lymph # (Auto) 0.6 L [place] # (Auto) 0.1 L Eos # (Auto) 0.0 Baso # (Auto) 0.0 Immature Gran % 0.6 Nucleated RBC % 0.0 Immature Gran # 0.02 Nucleated RBCs # 0.00 Immature Plt Fraction 0.0 Sodium 143 Potassium 3.9 Chloride 104 Carbon Dioxide 33 H Anion Gap 9.9 BUN 48 H Creatinine 1.00 GFR Calculation 55 BUN/Creatinine Ratio 48.00 H Glucose 121 H Calculated Osmolality 298.0 Calcium 8.0 L Magnesium 2.1 - EKG EKG results: interpreted by me Specialty Discharge - Follow Up or Referrals Follow up with: Nigel Whitaker DO [Primary Care Provider] - 07/10/17 1:00 pm (tcm 07/10/2017 1: 00) Baldomero Ramos MD [Physician] - (per Cardiology schedule)
[2017-07-05 11:47] VITALS: BP 110/58
== END 2017-07-05 14:32 | disposition home or self-care (01) | DRG 190 ==
LOC: N.ED 11:31 → N.EDINP 17:20 → N.TELEN 19:25
PROVIDERS: ADMIT Family Medicine; ATTEND Family Medicine

== ENCOUNTER 2017-12-28 23:24 | Inpatient (IN) ==
[2017-12-29] MEDS ORDERED: FUROSEMIDE 100 MG/10 ML VIAL IV STA (00:11)
[2017-12-29] MEDS ORDERED: methylPREDNISolone SOD SUC 125 MG/2 ML VIAL IV STA (00:11)
[2017-12-29] MEDS ORDERED: LEVALBUTEROL 1.25 MG/3 ML NEB RESP TX STA (00:15)
[2017-12-29] MEDS ORDERED: methylPREDNISolone SOD SUC 125 MG/2 ML VIAL ONE (00:17)
[2017-12-29] MEDS ORDERED: FUROSEMIDE 40 MG/4 ML VIAL ONE (00:17)
[2017-12-29 00:20] LABS: Basophils % 0.5 % (0.0-0.8); Eosinophils # 0.1 10*3/uL (0.0-0.87); Eosinophils % 1.4 % (0.00-10.9); Hematocrit 33.5 VOL% (35.7-47.0); Immature Granulocytes % 0.3 %; Immature Granulocytes Absolute 0.03 #; Lymphocytes # 0.9 10*3/uL (1.4-4.0); Lymphocytes % 9.8 % (21.3-54.2); Mean Corpuscular HGB Conc 32.8 GM/DL (32-36); Mean Corpuscular Hemoglobin 30 PG (27-34); Mean Corpuscular Volume 91.8 FL (87-102); Mean Platelet Volume 11.1 FL (9.6-12.0); Monocytes # 0.5 10*3/uL (0.11-0.8); Monocytes % 5.2 % (1.7-12.7); Neutrophils # 7.3 10*3/uL (1.4-7.4); Neutrophils % 82.8 % (38.7-73.9); Platelet Count 143 T/CUMM (130-400); Red Blood Count 3.65 MC/CUMM (3.8-5.5); Red Cell Distribution Width 14.1 % (9.3-17.3); White Blood Count 8.9 T/CUMM (4-12)
[2017-12-29 00:25] LABS: PT Patient Result 10.2 SECS
[2017-12-29] MEDS ORDERED: LEVOFLOXACIN INJ 500 MG in PREMIX 1 EACH IV STA (00:36)
[2017-12-29 00:41] LABS: ABG Base Excess 4.2 MMOL/L (-2.5-2.5); ABG HCO3 27.7 MMOL/L (20-26); ABG Oxygen Saturation 94.3 % (95-100); ABG PCO2 37.5 MM HG (35-48); ABG PH 7.486 (7.35-7.45); ABG PO2 71.2 MM HG (80-95); ABG TCO2 28.8 MMOL/L (23-27)
[2017-12-29 00:44] LABS: Alanine Aminotransferase 43 U/L (13-56); Albumin 3.5 G/DL (3.4-5.0); Alkaline Phosphatase 115 U/L (45-117); Aspartate Amino Transferase 37 U/L (0-37); Blood Urea Nitrogen 23 MG/DL (7-18); Calcium 8.5 MG/DL (8.5-10.1); Glucose 118 MG/DL (74-106); Osmolality,Calculated 272.2 MOS/KG (273-304); Potassium 5.1 MMOL/L (3.5-5.1); Sodium 134 MMOL/L (136-145); Total Protein 6.9 G/DL (6.4-8.3); Troponin I Only < 0.015 NG/ML (0.00-0.045)
[2017-12-29] MEDS ORDERED: LEVOFLOXACIN INJ 100 ML IV ONE (00:50)
[2017-12-29 01:46] LABS: Apearance,Urine CLEAR (Clear); Bacteria,Urine Occasional /HPF (Few); Bilirubin,Urine Negative (Negative); Blood, Urine Negative (Negative); Glucose,Urine (UA) Negative (Negative); Hyaline Casts,Urine 4 /LPF (0-3); Ketones,Urine Negative (Negative); Nitrite,Urine Negative (Negative); Protein,Urine Negative; RBC,Urine 1 /HPF (0-4); Squamous Epithelial Cell,Urine Occasional /HPF (0-10); Urine Color Yellow (Yellow); Urine Specific Gravity 1.008 (1.001-1.035); Urine Urobilinogen < 2.0 EU/DL (0.2-1.0); WBC,Urine 1 /HPF (0-6)
[2017-12-29] MEDS ORDERED: ACETAMINOPHEN 500 MG TABLET PO STA (01:52)
[2017-12-29] MEDS ORDERED: ACETAMINOPHEN 500 MG TABLET ONE (01:54)
[2017-12-29] MEDS ORDERED: ONDANSETRON 4 MG/2 ML VIAL IV PRN (02:07)
[2017-12-29] MEDS ORDERED: LACTULOSE 20 GM/30 ML UDCUP PO PRN (02:07)
[2017-12-29] MEDS ORDERED: ACETAMINOPHEN 325 MG TABLET PO PRN (02:07)
[2017-12-29] MEDS ORDERED: GLUCAGON 1 MG VIAL IM PRN (02:07)
[2017-12-29] MEDS ORDERED: DEXTROSE 50% 25 GM/50 ML VIAL IV PRN (02:07)
[2017-12-29] MEDS: LEVALBUTEROL 1.25 MG/3 ML NEB RESP TX SCH ×5 (02:46→19:48)
[2017-12-29] MEDS: SODIUM CHLORIDE 0.9% 1,000 ML IV SCH (03:23)
[2017-12-29 05:25] LABS: Basophils % 0.3 % (0.0-0.8); Eosinophils % 0.3 % (0.00-10.9); Hematocrit 32.8 VOL% (35.7-47.0); Hemoglobin 10.6 GM/DL (12.0-16.0); Immature Granulocytes % 0.4 %; Immature Granulocytes Absolute 0.03 #; Lymphocytes # 0.7 10*3/uL (1.4-4.0); Lymphocytes % 9.6 % (21.3-54.2); Mean Corpuscular HGB Conc 32.3 GM/DL (32-36); Mean Corpuscular Hemoglobin 29 PG (27-34); Mean Corpuscular Volume 91.1 FL (87-102); Mean Platelet Volume 11.4 FL (9.6-12.0); Monocytes # 0.2 10*3/uL (0.11-0.8); Monocytes % 2.5 % (1.7-12.7); Neutrophils # 6.3 10*3/uL (1.4-7.4); Neutrophils % 86.9 % (38.7-73.9); Platelet Count 129 T/CUMM (130-400); White Blood Count 7.2 T/CUMM (4-12)
[2017-12-29 05:55] LABS: Albumin 3.1 G/DL (3.4-5.0); Calcium 8.5 MG/DL (8.5-10.1); Osmolality,Calculated 277.1 MOS/KG (273-304); Potassium 5.2 MMOL/L (3.5-5.1); Risk Ratio 2.18; Total Protein 6.5 G/DL (6.4-8.3); VLDL CHOLESTEROL 12.8 MG/DL
[2017-12-29 05:56] LABS: Troponin I Only < 0.015 NG/ML (0.00-0.045)
[2017-12-29] MEDS: PANTOPRAZOLE 40 MG VIAL IV SCH (09:23)
[2017-12-29] MEDS: LISINOPRIL 2.5 MG TABLET PO SCH (09:23)
[2017-12-29] MEDS: ROSUVASTATIN 10 MG TABLET PO SCH (09:23)
[2017-12-29] MEDS: DOCUSATE SODIUM 100 MG CAPSULE PO SCH ×2 (09:23→22:08)
[2017-12-29] MEDS: ENOXAPARIN 40 MG/0.4 ML SYRINGE SUBCUT SCH (09:23)
[2017-12-29] MEDS: ALLOPURINOL 100 MG TABLET PO SCH (09:23)
[2017-12-29] MEDS: CARVEDILOL 3.125 MG TABLET PO SCH ×2 (09:23→22:09)
[2017-12-29] MEDS: ASPIRIN EC 81 MG TABLET PO SCH (09:24)
[2017-12-29] MEDS: FUROSEMIDE 40 MG TABLET PO SCH ×2 (09:24→22:08)
[2017-12-29] MEDS: MAGNESIUM CHLORIDE 64 MG TABLET PO SCH ×2 (09:24→22:08)
[2017-12-29] MEDS: methylPREDNISolone SOD SUC 40 MG/1 ML VIAL IV SCH ×2 (09:24→16:54)
[2017-12-29] MEDS: GABAPENTIN 100 MG CAPSULE PO SCH ×2 (09:24→22:08)
[2017-12-29] MEDS: INSULIN REGULAR 100 UNIT/ML SUBCUT SCH ×4 (09:25→22:08)
[2017-12-30] MEDS: methylPREDNISolone SOD SUC 40 MG/1 ML VIAL IV SCH ×4 (00:05→23:31)
[2017-12-30] MEDS: LEVALBUTEROL 1.25 MG/3 ML NEB RESP TX SCH ×6 (00:26→19:11)
[2017-12-30] MEDS: LEVOFLOXACIN INJ 250 MG in PREMIX 1 EACH IV SCH (01:55)
[2017-12-30] MEDS: SODIUM CHLORIDE 0.9% 1,000 ML IV SCH (01:56)
[2017-12-30] MEDS: INSULIN REGULAR 100 UNIT/ML SUBCUT SCH ×4 (08:38→21:27)
[2017-12-30] MEDS: PANTOPRAZOLE 40 MG VIAL IV SCH (08:40)
[2017-12-30] MEDS: DOCUSATE SODIUM 100 MG CAPSULE PO SCH ×2 (08:40→21:27)
[2017-12-30] MEDS: GABAPENTIN 100 MG CAPSULE PO SCH ×2 (08:40→21:27)
[2017-12-30] MEDS: ASPIRIN EC 81 MG TABLET PO SCH (08:40)
[2017-12-30] MEDS: ENOXAPARIN 40 MG/0.4 ML SYRINGE SUBCUT SCH (08:40)
[2017-12-30] MEDS: LISINOPRIL 2.5 MG TABLET PO SCH (08:40)
[2017-12-30] MEDS: ALLOPURINOL 100 MG TABLET PO SCH (08:40)
[2017-12-30] MEDS: ROSUVASTATIN 10 MG TABLET PO SCH (08:40)
[2017-12-30] MEDS: MAGNESIUM CHLORIDE 64 MG TABLET PO SCH ×2 (08:40→21:27)
[2017-12-30] MEDS: CARVEDILOL 3.125 MG TABLET PO SCH ×2 (08:40→21:27)
[2017-12-30] MEDS: FUROSEMIDE 40 MG TABLET PO SCH ×2 (08:40→21:27)
[2017-12-30] MEDS ORDERED: IPRATROPIUM 500 MCG/2.5 ML NEB RESP TX PRN (14:17)
[2017-12-30] MEDS: IPRATROPIUM 500 MCG/2.5 ML NEB RESP TX SCH ×2 (14:59→19:12)
[2017-12-31] MEDS: LEVOFLOXACIN INJ 250 MG in PREMIX 1 EACH IV SCH (01:30)
[2017-12-31] MEDS: SODIUM CHLORIDE 0.9% 1,000 ML IV SCH (03:11)
[2017-12-31] MEDS: LEVALBUTEROL 1.25 MG/3 ML NEB RESP TX SCH ×7 (03:49→23:53)
[2017-12-31 05:31] LABS: Osmolality,Calculated 291.7 MOS/KG (273-304)
[2017-12-31] MEDS: INSULIN REGULAR 100 UNIT/ML SUBCUT SCH ×4 (08:02→21:35)
[2017-12-31] MEDS: IPRATROPIUM 500 MCG/2.5 ML NEB RESP TX SCH ×4 (08:21→19:43)
[2017-12-31] MEDS: PANTOPRAZOLE 40 MG VIAL IV SCH (08:44)
[2017-12-31] MEDS: FUROSEMIDE 40 MG TABLET PO SCH ×2 (08:45→21:32)
[2017-12-31] MEDS: DOCUSATE SODIUM 100 MG CAPSULE PO SCH ×2 (08:45→21:33)
[2017-12-31] MEDS: LISINOPRIL 2.5 MG TABLET PO SCH (08:45)
[2017-12-31] MEDS: CARVEDILOL 3.125 MG TABLET PO SCH ×2 (08:45→21:32)
[2017-12-31] MEDS: MAGNESIUM CHLORIDE 64 MG TABLET PO SCH ×2 (08:45→21:32)
[2017-12-31] MEDS: ROSUVASTATIN 10 MG TABLET PO SCH (08:45)
[2017-12-31] MEDS: GABAPENTIN 100 MG CAPSULE PO SCH ×2 (08:46→21:32)
[2017-12-31] MEDS: ALLOPURINOL 100 MG TABLET PO SCH (08:46)
[2017-12-31] MEDS: ASPIRIN EC 81 MG TABLET PO SCH (08:46)
[2017-12-31] MEDS: ENOXAPARIN 40 MG/0.4 ML SYRINGE SUBCUT SCH (08:46)
[2017-12-31] MEDS: methylPREDNISolone SOD SUC 40 MG/1 ML VIAL IV SCH ×2 (08:47→16:35)
[2018-01-01] MEDS: methylPREDNISolone SOD SUC 40 MG/1 ML VIAL IV SCH ×3 (00:59→20:51)
[2018-01-01] MEDS: SODIUM CHLORIDE 0.9% 1,000 ML IV SCH (01:22)
[2018-01-01] MEDS: LEVOFLOXACIN INJ 250 MG in PREMIX 1 EACH IV SCH (01:22)
[2018-01-01] MEDS: LEVALBUTEROL 1.25 MG/3 ML NEB RESP TX SCH ×6 (04:33→23:54)
[2018-01-01] MEDS: IPRATROPIUM 500 MCG/2.5 ML NEB RESP TX SCH ×4 (07:26→19:37)
[2018-01-01] MEDS: INSULIN REGULAR 100 UNIT/ML SUBCUT SCH ×4 (08:44→20:54)
[2018-01-01] MEDS: DOCUSATE SODIUM 100 MG CAPSULE PO SCH ×2 (08:45→20:51)
[2018-01-01] MEDS: ROSUVASTATIN 10 MG TABLET PO SCH (08:45)
[2018-01-01] MEDS: PANTOPRAZOLE 40 MG VIAL IV SCH (08:45)
[2018-01-01] MEDS: ASPIRIN EC 81 MG TABLET PO SCH (08:45)
[2018-01-01] MEDS: ENOXAPARIN 40 MG/0.4 ML SYRINGE SUBCUT SCH (08:45)
[2018-01-01] MEDS: ALLOPURINOL 100 MG TABLET PO SCH (08:45)
[2018-01-01] MEDS: GABAPENTIN 100 MG CAPSULE PO SCH ×2 (08:45→20:51)
[2018-01-01] MEDS: CARVEDILOL 3.125 MG TABLET PO SCH ×2 (08:46→20:51)
[2018-01-01] MEDS: FUROSEMIDE 40 MG TABLET PO SCH ×2 (08:46→20:51)
[2018-01-01] MEDS: LISINOPRIL 2.5 MG TABLET PO SCH (08:46)
[2018-01-01] MEDS: MAGNESIUM CHLORIDE 64 MG TABLET PO SCH ×2 (08:46→20:50)
[2018-01-01] MEDS: metOLazone 2.5 MG TABLET PO SCH (11:18)
[2018-01-02] MEDS ORDERED: PHENOL 1.4% THROAT SPRAY 177 ML BOTTLE PO PRN (02:33)
[2018-01-02] MEDS: LEVOFLOXACIN INJ 250 MG in PREMIX 1 EACH IV SCH (02:54)
[2018-01-02] MEDS: NYSTATIN 500,000 UNIT/5 ML UDCUP SWISH/SWAL SCH ×2 (03:01→09:23)
[2018-01-02] MEDS: LEVALBUTEROL 1.25 MG/3 ML NEB RESP TX SCH ×3 (03:35→11:41)
[2018-01-02 06:10] LABS: Calcium 8.2 MG/DL (8.5-10.1); Osmolality,Calculated 294.7 MOS/KG (273-304); Potassium 3.5 MMOL/L (3.5-5.1)
[2018-01-02] MEDS: IPRATROPIUM 500 MCG/2.5 ML NEB RESP TX SCH ×2 (07:20→11:41)
[2018-01-02] MEDS: INSULIN REGULAR 100 UNIT/ML SUBCUT SCH ×2 (08:09→11:43)
[2018-01-02] MEDS: ENOXAPARIN 40 MG/0.4 ML SYRINGE SUBCUT SCH (09:24)
[2018-01-02] MEDS: ROSUVASTATIN 10 MG TABLET PO SCH (09:24)
[2018-01-02] MEDS: PANTOPRAZOLE 40 MG VIAL IV SCH (09:24)
[2018-01-02] MEDS: MAGNESIUM CHLORIDE 64 MG TABLET PO SCH (09:24)
[2018-01-02] MEDS: metOLazone 2.5 MG TABLET PO SCH (09:24)
[2018-01-02] MEDS: GABAPENTIN 100 MG CAPSULE PO SCH (09:24)
[2018-01-02] MEDS: ALLOPURINOL 100 MG TABLET PO SCH (09:24)
[2018-01-02] MEDS: DOCUSATE SODIUM 100 MG CAPSULE PO SCH (09:24)
[2018-01-02] MEDS: methylPREDNISolone SOD SUC 40 MG/1 ML VIAL IV SCH (09:24)
[2018-01-02] MEDS: LISINOPRIL 2.5 MG TABLET PO SCH (09:24)
[2018-01-02] MEDS: ASPIRIN EC 81 MG TABLET PO SCH (09:25)
[2018-01-02] MEDS: CARVEDILOL 3.125 MG TABLET PO SCH (09:25)
[2018-01-02] MEDS: FUROSEMIDE 40 MG TABLET PO SCH (09:25)
[2018-01-02 12:19] VITALS: BP 123/67
== END 2018-01-02 12:18 | disposition home health service (06) | DRG 191 ==
LOC: N.ED 23:24 → N.EDINP 12-29 01:37 → N.5E 12-29 02:07
PROVIDERS: ADMIT Family Medicine; ATTEND Family Medicine

== ENCOUNTER 2018-10-26 18:57 | Inpatient (IN) ==
[2018-10-26 19:39] LABS: Basophils % 0.5 % (0.0-0.8); Eosinophils # 0.3 10*3/uL (0.0-0.87); Eosinophils % 4.4 % (0.00-10.9); Hematocrit 31.4 VOL% (35.7-47.0); Immature Granulocytes % 0.5 %; Immature Granulocytes Absolute 0.03 #; Lymphocytes # 1.3 10*3/uL (1.4-4.0); Mean Corpuscular HGB Conc 31.8 GM/DL (32-36); Mean Corpuscular Hemoglobin 30 PG (27-34); Mean Corpuscular Volume 94.3 FL (87-102); Mean Platelet Volume 10.4 FL (9.6-12.0); Monocytes # 0.5 10*3/uL (0.11-0.8); Monocytes % 8.1 % (1.7-12.7); Neutrophils # 3.6 10*3/uL (1.4-7.4); Neutrophils % 63.5 % (38.7-73.9); Platelet Count 146 T/CUMM (130-400); Red Blood Count 3.33 MC/CUMM (3.8-5.5); Red Cell Distribution Width 14.4 % (9.3-17.3); White Blood Count 5.7 T/CUMM (4-12)
[2018-10-26 20:01] LABS: Alanine Aminotransferase 25 U/L (13-56); Albumin 3.3 G/DL (3.4-5.0); Alkaline Phosphatase 132 U/L (45-117); Aspartate Amino Transferase 22 U/L (0-37); Bilirubin,Total < 0.39 MG/DL (0.2-1.0); Blood Urea Nitrogen 30 MG/DL (7-18); Calcium 8.4 MG/DL (8.5-10.1); Glucose 88 MG/DL (74-106); Osmolality,Calculated 281.5 MOS/KG (273-304); Potassium 4.5 MMOL/L (3.5-5.1); Sodium 139 MMOL/L (136-145); Total Protein 7.1 G/DL (6.4-8.3)
[2018-10-26 20:03] LABS: Troponin I < 0.015 NG/ML (0.00-0.045)
[2018-10-26] MEDS ORDERED: ONDANSETRON 4 MG/2 ML VIAL IV STA (20:31)
[2018-10-26] MEDS ORDERED: methylPREDNISolone SOD SUC 125 MG/2 ML VIAL IV STA (20:31)
[2018-10-26] MEDS ORDERED: LEVOFLOXACIN INJ 750 MG in PREMIX 1 EACH IV STA (20:37)
[2018-10-26 21:54] LABS: Apearance,Urine CLEAR (Clear); Bilirubin,Urine Negative (Negative); Blood, Urine Negative (Negative); Glucose,Urine (UA) Negative (Negative); Hyaline Casts,Urine 20 /LPF (0-3); Ketones,Urine Negative (Negative); Mucus,Urine Occasional /LPF (Occasional); Nitrite,Urine Negative (Negative); Protein,Urine Negative; RBC,Urine 1 /HPF (0-4); Squamous Epithelial Cell,Urine Occasional /HPF (0-10); Urine Color Straw (Yellow); Urine Specific Gravity 1.009 (1.001-1.035); Urine Urobilinogen < 2.0 EU/DL (0.2-1.0); WBC,Urine 1 /HPF (0-6)
[2018-10-26] MEDS ORDERED: LEVALBUTEROL 1.25 MG/3 ML NEB RESP TX STA (23:18)
[2018-10-26] MEDS ORDERED: IPRATROPIUM 500 MCG/2.5 ML NEB RESP TX STA (23:18)
[2018-10-26] MEDS ORDERED: ONDANSETRON 4 MG/2 ML VIAL IV PRN (23:58)
[2018-10-27] MEDS: LEVALBUTEROL 1.25 MG/3 ML NEB RESP TX SCH ×6 (03:50→23:20)
[2018-10-27] MEDS ORDERED: methylPREDNISolone SOD SUC 40 MG/1 ML VIAL IV SCH (05:00)
[2018-10-27] MEDS ORDERED: POTASSIUM CHLORIDE 20 MEQ TABLET PO SCH (09:00)
[2018-10-27] MEDS: POTASSIUM CHLORIDE 20 MEQ TABLET PO SCH ×2 (10:15→21:39)
[2018-10-27] MEDS: CARVEDILOL 3.125 MG TABLET PO SCH ×2 (10:16→21:39)
[2018-10-27] MEDS: ASPIRIN EC 81 MG TABLET PO SCH (10:19)
[2018-10-27] MEDS: PANTOPRAZOLE 40 MG TABLET PO SCH (10:19)
[2018-10-27] MEDS: ALLOPURINOL 100 MG TABLET PO SCH ×2 (10:19→22:32)
[2018-10-27] MEDS: FUROSEMIDE 40 MG/5 ML UDCUP PO SCH ×2 (10:19→16:10)
[2018-10-27] MEDS: MAGNESIUM CHLORIDE 64 MG TABLET PO SCH (21:39)
[2018-10-27] MEDS: methylPREDNISolone SOD SUC 40 MG/1 ML VIAL IV SCH (21:40)
[2018-10-27] MEDS: GABAPENTIN 100 MG CAPSULE PO SCH ×2 (21:40→22:32)
[2018-10-28] MEDS: LEVALBUTEROL 1.25 MG/3 ML NEB RESP TX SCH ×6 (03:00→23:30)
[2018-10-28] MEDS: methylPREDNISolone SOD SUC 40 MG/1 ML VIAL IV SCH ×2 (10:37→13:41)
[2018-10-28] MEDS: GABAPENTIN 100 MG CAPSULE PO SCH ×2 (10:37→21:48)
[2018-10-28] MEDS: MAGNESIUM CHLORIDE 64 MG TABLET PO SCH ×2 (10:37→21:49)
[2018-10-28] MEDS: FUROSEMIDE 40 MG/5 ML UDCUP PO SCH ×2 (10:37→17:13)
[2018-10-28] MEDS: CARVEDILOL 3.125 MG TABLET PO SCH ×2 (10:37→21:49)
[2018-10-28] MEDS: ALLOPURINOL 100 MG TABLET PO SCH ×2 (10:38→20:35)
[2018-10-28] MEDS: PANTOPRAZOLE 40 MG TABLET PO SCH (10:38)
[2018-10-28] MEDS: POTASSIUM CHLORIDE 20 MEQ TABLET PO SCH ×2 (10:38→21:48)
[2018-10-28] MEDS: ASPIRIN EC 81 MG TABLET PO SCH (10:38)
[2018-10-28] MEDS: LISINOPRIL 2.5 MG TABLET PO SCH (10:38)
[2018-10-28] MEDS: ROSUVASTATIN 10 MG TABLET PO SCH (10:38)
[2018-10-28] MEDS: MULTIVITAMIN (OCUVITE) TABLET PO SCH (14:07)
[2018-10-28] MEDS ORDERED: LEVOFLOXACIN INJ 750 MG in PREMIX 1 EACH IV SCH (21:00)
[2018-10-29] MEDS: methylPREDNISolone SOD SUC 40 MG/1 ML VIAL IV SCH (01:01)
[2018-10-29] MEDS: LEVALBUTEROL 1.25 MG/3 ML NEB RESP TX SCH ×6 (03:20→23:55)
[2018-10-29 09:26] LABS: Calcium 8.4 MG/DL (8.5-10.1); Osmolality,Calculated 298.5 MOS/KG (273-304); Potassium 4.2 MMOL/L (3.5-5.1); Thyroid Stimulating Hormone 0.196 uIU/ml (0.358-3.74)
[2018-10-29] MEDS: methylPREDNISolone 4 MG TABLET PO SCH (09:42)
[2018-10-29] MEDS: MAGNESIUM CHLORIDE 64 MG TABLET PO SCH ×2 (09:42→21:12)
[2018-10-29] MEDS: POTASSIUM CHLORIDE 20 MEQ TABLET PO SCH ×2 (09:42→21:12)
[2018-10-29] MEDS: ALLOPURINOL 100 MG TABLET PO SCH ×2 (09:42→21:12)
[2018-10-29] MEDS: CARVEDILOL 3.125 MG TABLET PO SCH ×2 (09:42→21:12)
[2018-10-29] MEDS: ASPIRIN EC 81 MG TABLET PO SCH (09:42)
[2018-10-29] MEDS: ROSUVASTATIN 10 MG TABLET PO SCH (09:42)
[2018-10-29] MEDS: GABAPENTIN 100 MG CAPSULE PO SCH ×2 (09:42→21:12)
[2018-10-29] MEDS: MULTIVITAMIN (OCUVITE) TABLET PO SCH (09:42)
[2018-10-29] MEDS: FUROSEMIDE 40 MG/5 ML UDCUP PO SCH ×2 (09:42→16:15)
[2018-10-29] MEDS: ENOXAPARIN 30 MG/0.3 ML SYRINGE SUBCUT SCH (09:42)
[2018-10-29] MEDS: PANTOPRAZOLE 40 MG TABLET PO SCH (09:42)
[2018-10-29] MEDS: LISINOPRIL 2.5 MG TABLET PO SCH (10:20)
[2018-10-30] MEDS: LEVALBUTEROL 1.25 MG/3 ML NEB RESP TX SCH ×6 (04:01→23:13)
[2018-10-30] MEDS: FUROSEMIDE 40 MG/5 ML UDCUP PO SCH ×2 (09:30→17:29)
[2018-10-30] MEDS: LISINOPRIL 2.5 MG TABLET PO SCH (09:31)
[2018-10-30] MEDS: MAGNESIUM CHLORIDE 64 MG TABLET PO SCH ×2 (09:32→21:17)
[2018-10-30] MEDS: ROSUVASTATIN 10 MG TABLET PO SCH (09:32)
[2018-10-30] MEDS: POTASSIUM CHLORIDE 20 MEQ TABLET PO SCH ×2 (09:32→21:17)
[2018-10-30] MEDS: PANTOPRAZOLE 40 MG TABLET PO SCH (09:32)
[2018-10-30] MEDS: methylPREDNISolone 4 MG TABLET PO SCH (09:32)
[2018-10-30] MEDS: GABAPENTIN 100 MG CAPSULE PO SCH ×2 (09:32→21:17)
[2018-10-30] MEDS: ASPIRIN EC 81 MG TABLET PO SCH (09:32)
[2018-10-30] MEDS: ALLOPURINOL 100 MG TABLET PO SCH ×2 (09:32→21:17)
[2018-10-30] MEDS: MULTIVITAMIN (OCUVITE) TABLET PO SCH (09:32)
[2018-10-30] MEDS: CARVEDILOL 3.125 MG TABLET PO SCH ×2 (09:33→21:17)
[2018-10-30] MEDS: ENOXAPARIN 30 MG/0.3 ML SYRINGE SUBCUT SCH (09:33)
[2018-10-30] MEDS: BISACODYL 5 MG TABLET PO PRN (17:29)
[2018-10-30] MEDS: LEVOFLOXACIN 750 MG TABLET PO SCH (21:17)
[2018-10-31] MEDS: LEVALBUTEROL 1.25 MG/3 ML NEB RESP TX SCH ×6 (03:24→23:13)
[2018-10-31] MEDS ORDERED: SODIUM CHLORIDE 0.45% 1,000 ML IV SCH ×2 (05:00→09:00)
[2018-10-31] MEDS: LISINOPRIL 2.5 MG TABLET PO SCH (10:06)
[2018-10-31] MEDS: CARVEDILOL 3.125 MG TABLET PO SCH ×2 (10:06→21:21)
[2018-10-31] MEDS ORDERED: diphenhydrAMINE CAP 25 MG CAPSULE PO ONE (12:00)
[2018-10-31] MEDS ORDERED: DIAZEPAM 5 MG TABLET PO ONE (12:00)
[2018-10-31] MEDS ORDERED: LIDOCAINE 1% 20 ML VIAL ONE (13:29)
[2018-10-31] MEDS ORDERED: HEPARIN/NACL 0.9% 2 UNITS/ML 1,000 ML IV ONE (13:29)
[2018-10-31] MEDS ORDERED: HYDROmorphone 2 MG/1 ML VIAL ONE (14:02)
[2018-10-31] MEDS ORDERED: MIDAZOLAM 2 MG/2 ML VIAL ONE (14:03)
[2018-10-31 18:18] LABS: PT Patient Result 11.1 SECS
[2018-10-31] MEDS: FUROSEMIDE 40 MG/5 ML UDCUP PO SCH ×2 (20:52→20:53)
[2018-10-31] MEDS: POTASSIUM CHLORIDE 20 MEQ TABLET PO SCH ×2 (20:53→21:21)
[2018-10-31] MEDS: ROSUVASTATIN 10 MG TABLET PO SCH (20:53)
[2018-10-31] MEDS: ASPIRIN EC 81 MG TABLET PO SCH (20:53)
[2018-10-31] MEDS: methylPREDNISolone 4 MG TABLET PO SCH (20:54)
[2018-10-31] MEDS: GABAPENTIN 100 MG CAPSULE PO SCH ×2 (20:54→21:21)
[2018-10-31] MEDS: ENOXAPARIN 30 MG/0.3 ML SYRINGE SUBCUT SCH (20:54)
[2018-10-31] MEDS: MULTIVITAMIN (OCUVITE) TABLET PO SCH (20:55)
[2018-10-31] MEDS: MAGNESIUM CHLORIDE 64 MG TABLET PO SCH ×2 (20:55→21:21)
[2018-10-31] MEDS: PANTOPRAZOLE 40 MG TABLET PO SCH (20:55)
[2018-10-31] MEDS: ALLOPURINOL 100 MG TABLET PO SCH ×2 (20:56→21:22)
[2018-11-01] MEDS: LEVALBUTEROL 1.25 MG/3 ML NEB RESP TX SCH ×5 (02:36→19:39)
[2018-11-01 04:27] LABS: Basophils % 0.1 % (0.0-0.8); Eosinophils # 0.2 10*3/uL (0.0-0.87); Eosinophils % 2.4 % (0.00-10.9); Hematocrit 31.7 VOL% (35.7-47.0); Hemoglobin 9.8 GM/DL (12.0-16.0); Immature Granulocytes % 0.6 %; Immature Granulocytes Absolute 0.04 #; Lymphocytes % 28.7 % (21.3-54.2); Mean Corpuscular HGB Conc 30.9 GM/DL (32-36); Mean Corpuscular Hemoglobin 30 PG (27-34); Mean Corpuscular Volume 95.5 FL (87-102); Mean Platelet Volume 10.7 FL (9.6-12.0); Monocytes # 0.6 10*3/uL (0.11-0.8); Neutrophils # 4.2 10*3/uL (1.4-7.4); Neutrophils % 59.2 % (38.7-73.9); Platelet Count 152 T/CUMM (130-400); Red Blood Count 3.32 MC/CUMM (3.8-5.5); Red Cell Distribution Width 14.4 % (9.3-17.3); White Blood Count 7.1 T/CUMM (4-12)
[2018-11-01 04:49] LABS: Calcium 8.2 MG/DL (8.5-10.1); Osmolality,Calculated 288.4 MOS/KG (273-304); Potassium 4.6 MMOL/L (3.5-5.1)
[2018-11-01] MEDS ORDERED: diphenhydrAMINE CAP 25 MG CAPSULE PO ONE (07:00)
[2018-11-01] MEDS ORDERED: VANCOMYCIN INJ 500 MG in SODIUM CHLORIDE 0.9% 100 ML IV ONE (07:00)
[2018-11-01] MEDS ORDERED: DIAZEPAM 5 MG TABLET PO ONE (07:00)
[2018-11-01] MEDS ORDERED: FUROSEMIDE 40 MG/4 ML VIAL IV ONE (07:16)
[2018-11-01] MEDS ORDERED: VANCOMYCIN 500 MG VIAL IRRIG ONE (08:30)
[2018-11-01] MEDS: FUROSEMIDE 40 MG/5 ML UDCUP PO SCH (10:29)
[2018-11-01] MEDS: methylPREDNISolone 4 MG TABLET PO SCH (10:41)
[2018-11-01] MEDS: LISINOPRIL 2.5 MG TABLET PO SCH (10:41)
[2018-11-01] MEDS: MAGNESIUM CHLORIDE 64 MG TABLET PO SCH ×2 (10:41→21:59)
[2018-11-01] MEDS: POTASSIUM CHLORIDE 20 MEQ TABLET PO SCH ×2 (10:42→22:00)
[2018-11-01] MEDS: ROSUVASTATIN 10 MG TABLET PO SCH (10:42)
[2018-11-01] MEDS: MULTIVITAMIN (OCUVITE) TABLET PO SCH (10:42)
[2018-11-01] MEDS: PANTOPRAZOLE 40 MG TABLET PO SCH (10:43)
[2018-11-01] MEDS: CARVEDILOL 3.125 MG TABLET PO SCH ×2 (10:43→21:59)
[2018-11-01] MEDS: ALLOPURINOL 100 MG TABLET PO SCH ×2 (10:43→21:59)
[2018-11-01] MEDS: ASPIRIN EC 81 MG TABLET PO SCH (10:43)
[2018-11-01] MEDS: ENOXAPARIN 40 MG/0.4 ML SYRINGE SUBCUT SCH (10:43)
[2018-11-01] MEDS: GABAPENTIN 100 MG CAPSULE PO SCH ×2 (10:44→22:00)
[2018-11-01] MEDS: methylPREDNISolone SOD SUC 40 MG/1 ML VIAL IV SCH (16:18)
[2018-11-01] MEDS: LEVOFLOXACIN 750 MG TABLET PO SCH (21:59)
[2018-11-02] MEDS: LEVALBUTEROL 1.25 MG/3 ML NEB RESP TX SCH ×7 (00:19→23:19)
[2018-11-02] MEDS: methylPREDNISolone SOD SUC 40 MG/1 ML VIAL IV SCH ×2 (03:49→15:26)
[2018-11-02 04:59] LABS: Calcium 8.2 MG/DL (8.5-10.1); Osmolality,Calculated 286.7 MOS/KG (273-304); Potassium 4.6 MMOL/L (3.5-5.1)
[2018-11-02] MEDS: ROSUVASTATIN 10 MG TABLET PO SCH (08:52)
[2018-11-02] MEDS: GABAPENTIN 100 MG CAPSULE PO SCH ×2 (08:52→21:31)
[2018-11-02] MEDS: POTASSIUM CHLORIDE 20 MEQ TABLET PO SCH ×2 (08:52→21:31)
[2018-11-02] MEDS: ALLOPURINOL 100 MG TABLET PO SCH ×2 (08:52→21:30)
[2018-11-02] MEDS: CARVEDILOL 3.125 MG TABLET PO SCH ×2 (08:52→21:30)
[2018-11-02] MEDS: MULTIVITAMIN (OCUVITE) TABLET PO SCH (08:52)
[2018-11-02] MEDS: MAGNESIUM CHLORIDE 64 MG TABLET PO SCH ×2 (08:52→21:31)
[2018-11-02] MEDS: ASPIRIN EC 81 MG TABLET PO SCH (08:52)
[2018-11-02] MEDS: PANTOPRAZOLE 40 MG TABLET PO SCH (08:52)
[2018-11-02] MEDS: FUROSEMIDE 40 MG/4 ML VIAL IV SCH (08:53)
[2018-11-02] MEDS: LISINOPRIL 2.5 MG TABLET PO SCH (08:53)
[2018-11-02] MEDS: ENOXAPARIN 40 MG/0.4 ML SYRINGE SUBCUT SCH (08:53)
[2018-11-03] MEDS: LEVALBUTEROL 1.25 MG/3 ML NEB RESP TX SCH ×6 (03:12→23:57)
[2018-11-03] MEDS: methylPREDNISolone SOD SUC 40 MG/1 ML VIAL IV SCH ×2 (03:15→15:35)
[2018-11-03 06:19] LABS: Calcium 8.3 MG/DL (8.5-10.1); Potassium 4.7 MMOL/L (3.5-5.1)
[2018-11-03] MEDS: POTASSIUM CHLORIDE 20 MEQ TABLET PO SCH ×2 (09:47→20:55)
[2018-11-03] MEDS: MAGNESIUM CHLORIDE 64 MG TABLET PO SCH ×2 (09:47→20:55)
[2018-11-03] MEDS: ROSUVASTATIN 10 MG TABLET PO SCH (09:47)
[2018-11-03] MEDS: LISINOPRIL 2.5 MG TABLET PO SCH (09:47)
[2018-11-03] MEDS: GABAPENTIN 100 MG CAPSULE PO SCH ×2 (09:47→20:55)
[2018-11-03] MEDS: ALLOPURINOL 100 MG TABLET PO SCH ×2 (09:47→20:55)
[2018-11-03] MEDS: ASPIRIN EC 81 MG TABLET PO SCH (09:47)
[2018-11-03] MEDS: ENOXAPARIN 40 MG/0.4 ML SYRINGE SUBCUT SCH (09:47)
[2018-11-03] MEDS: CARVEDILOL 3.125 MG TABLET PO SCH ×2 (09:47→20:56)
[2018-11-03] MEDS: MULTIVITAMIN (OCUVITE) TABLET PO SCH (09:47)
[2018-11-03] MEDS: FUROSEMIDE 40 MG/4 ML VIAL IV SCH (09:48)
[2018-11-03] MEDS: PANTOPRAZOLE 40 MG TABLET PO SCH (09:48)
[2018-11-03] MEDS: LISINOPRIL 5 MG TABLET PO SCH (20:55)
[2018-11-03] MEDS: LEVOFLOXACIN 750 MG TABLET PO SCH (20:56)
[2018-11-04] MEDS: methylPREDNISolone SOD SUC 40 MG/1 ML VIAL IV SCH ×2 (03:24→14:38)
[2018-11-04] MEDS: LEVALBUTEROL 1.25 MG/3 ML NEB RESP TX SCH ×6 (04:01→23:53)
[2018-11-04 05:57] LABS: Calcium 8.1 MG/DL (8.5-10.1); Osmolality,Calculated 297.4 MOS/KG (273-304); Potassium 4.8 MMOL/L (3.5-5.1)
[2018-11-04] MEDS: POTASSIUM CHLORIDE 20 MEQ TABLET PO SCH ×2 (09:17→21:10)
[2018-11-04] MEDS: ASPIRIN EC 81 MG TABLET PO SCH (09:18)
[2018-11-04] MEDS: MAGNESIUM CHLORIDE 64 MG TABLET PO SCH ×2 (09:18→21:10)
[2018-11-04] MEDS: PANTOPRAZOLE 40 MG TABLET PO SCH (09:18)
[2018-11-04] MEDS: LISINOPRIL 5 MG TABLET PO SCH ×2 (09:18→21:10)
[2018-11-04] MEDS: MULTIVITAMIN (OCUVITE) TABLET PO SCH (09:19)
[2018-11-04] MEDS: CARVEDILOL 3.125 MG TABLET PO SCH ×2 (09:19→21:10)
[2018-11-04] MEDS: ALLOPURINOL 100 MG TABLET PO SCH ×2 (09:19→21:10)
[2018-11-04] MEDS: ROSUVASTATIN 10 MG TABLET PO SCH (09:20)
[2018-11-04] MEDS: GABAPENTIN 100 MG CAPSULE PO SCH ×2 (09:20→21:10)
[2018-11-04] MEDS: FUROSEMIDE 40 MG/4 ML VIAL IV SCH (09:21)
[2018-11-04] MEDS: ENOXAPARIN 40 MG/0.4 ML SYRINGE SUBCUT SCH (09:23)
[2018-11-05] MEDS ORDERED: VANCOMYCIN INJ 500 MG in SODIUM CHLORIDE 0.9% 100 ML IV ONE (00:05)
[2018-11-05] MEDS ORDERED: SODIUM CHLORIDE 0.9% 1,000 ML IV SCH ×2 (00:05)
[2018-11-05] MEDS: LEVALBUTEROL 1.25 MG/3 ML NEB RESP TX SCH ×6 (03:10→23:55)
[2018-11-05] MEDS: methylPREDNISolone SOD SUC 40 MG/1 ML VIAL IV SCH ×2 (03:24→15:59)
[2018-11-05 05:25] LABS: Hematocrit 31.1 VOL% (35.7-47.0); Hemoglobin 9.8 GM/DL (12.0-16.0); Immature Granulocytes % 2.2 %; Immature Granulocytes Absolute 0.15 #; Lymphocytes # 0.9 10*3/uL (1.4-4.0); Lymphocytes % 13.5 % (21.3-54.2); Mean Corpuscular HGB Conc 31.5 GM/DL (32-36); Mean Corpuscular Hemoglobin 29 PG (27-34); Mean Corpuscular Volume 93.1 FL (87-102); Mean Platelet Volume 11.1 FL (9.6-12.0); Monocytes # 0.5 10*3/uL (0.11-0.8); Monocytes % 6.8 % (1.7-12.7); Neutrophils # 5.3 10*3/uL (1.4-7.4); Neutrophils % 77.5 % (38.7-73.9); Platelet Count 187 T/CUMM (130-400); Red Blood Count 3.34 MC/CUMM (3.8-5.5); Red Cell Distribution Width 14.4 % (9.3-17.3); White Blood Count 6.8 T/CUMM (4-12)
[2018-11-05 05:36] LABS: Osmolality,Calculated 298.4 MOS/KG (273-304)
[2018-11-05 05:37] LABS: Osmolality,Calculated 297.5 MOS/KG (273-304); Potassium 4.9 MMOL/L (3.5-5.1)
[2018-11-05] MEDS ORDERED: VANCOMYCIN INJ 1,000 MG in SODIUM CHLORIDE 0.9% 250 ML IV ONE (06:00)
[2018-11-05] MEDS ORDERED: VANCOMYCIN 500 MG VIAL IRRIG ONE (06:00)
[2018-11-05] MEDS ORDERED: diphenhydrAMINE CAP 25 MG CAPSULE PO ONE (06:00)
[2018-11-05] MEDS ORDERED: DIAZEPAM 5 MG TABLET PO ONE (06:00)
[2018-11-05] MEDS: ENOXAPARIN 40 MG/0.4 ML SYRINGE SUBCUT SCH (09:09)
[2018-11-05] MEDS: PANTOPRAZOLE 40 MG TABLET PO SCH (09:10)
[2018-11-05] MEDS: POTASSIUM CHLORIDE 20 MEQ TABLET PO SCH ×2 (09:10→21:14)
[2018-11-05] MEDS: ROSUVASTATIN 10 MG TABLET PO SCH (09:10)
[2018-11-05] MEDS: GABAPENTIN 100 MG CAPSULE PO SCH ×2 (09:10→21:15)
[2018-11-05] MEDS: ALLOPURINOL 100 MG TABLET PO SCH ×2 (09:10→21:15)
[2018-11-05] MEDS: ASPIRIN EC 81 MG TABLET PO SCH (09:10)
[2018-11-05] MEDS: LISINOPRIL 5 MG TABLET PO SCH ×2 (09:10→21:14)
[2018-11-05] MEDS: MULTIVITAMIN (OCUVITE) TABLET PO SCH (09:10)
[2018-11-05] MEDS: CARVEDILOL 3.125 MG TABLET PO SCH ×2 (09:10→21:15)
[2018-11-05] MEDS: FUROSEMIDE 40 MG/4 ML VIAL IV SCH (09:11)
[2018-11-05] MEDS: MAGNESIUM CHLORIDE 64 MG TABLET PO SCH ×2 (09:11→21:15)
[2018-11-05] MEDS ORDERED: LIDOCAINE 1% 20 ML VIAL ONE (12:38)
[2018-11-05] MEDS ORDERED: VANCOMYCIN 500 MG VIAL ONE (12:39)
[2018-11-05] MEDS ORDERED: TISSUE ADHESIVE 1 EACH APPLICATOR TOP ONE ×2 (14:22→15:07)
[2018-11-05] MEDS ORDERED: PROPOFOL 200 MG/20 ML VIAL IV ONE (14:50)
[2018-11-05] MEDS ORDERED: fentaNYL 100 MCG/2 ML VIAL ONE (14:51)
[2018-11-05] MEDS ORDERED: PHENYLEPHRINE 1 MG/10 ML SYRINGE IV ONE (14:52)
[2018-11-05] MEDS ORDERED: KETAMINE 500 MG/10 ML VIAL ONE (14:52)
[2018-11-05] MEDS: LEVOFLOXACIN 750 MG TABLET PO SCH (21:15)
[2018-11-06] MEDS: LEVALBUTEROL 1.25 MG/3 ML NEB RESP TX SCH ×5 (03:30→19:42)
[2018-11-06 05:36] LABS: Basophils % 0.2 % (0.0-0.8); Hematocrit 34.3 VOL% (35.7-47.0); Immature Granulocytes % 1.5 %; Immature Granulocytes Absolute 0.19 #; Lymphocytes # 0.8 10*3/uL (1.4-4.0); Lymphocytes % 6.4 % (21.3-54.2); Mean Corpuscular HGB Conc 32.1 GM/DL (32-36); Mean Corpuscular Hemoglobin 30 PG (27-34); Mean Corpuscular Volume 93.5 FL (87-102); Mean Platelet Volume 11.3 FL (9.6-12.0); Monocytes # 0.8 10*3/uL (0.11-0.8); Monocytes % 6.8 % (1.7-12.7); Neutrophils # 10.5 10*3/uL (1.4-7.4); Neutrophils % 85.1 % (38.7-73.9); Platelet Count 188 T/CUMM (130-400); Red Blood Count 3.67 MC/CUMM (3.8-5.5); Red Cell Distribution Width 14.5 % (9.3-17.3); White Blood Count 12.3 T/CUMM (4-12)
[2018-11-06 05:59] LABS: Calcium 8.3 MG/DL (8.5-10.1); Osmolality,Calculated 299.3 MOS/KG (273-304)
[2018-11-06] MEDS: methylPREDNISolone SOD SUC 40 MG/1 ML VIAL IV SCH ×2 (06:50→14:55)
[2018-11-06] MEDS: CARVEDILOL 3.125 MG TABLET PO SCH ×2 (10:50→22:43)
[2018-11-06] MEDS: POTASSIUM CHLORIDE 20 MEQ TABLET PO SCH ×2 (10:50→22:39)
[2018-11-06] MEDS: ALLOPURINOL 100 MG TABLET PO SCH ×2 (10:50→22:42)
[2018-11-06] MEDS: ASPIRIN EC 81 MG TABLET PO SCH (10:50)
[2018-11-06] MEDS: MAGNESIUM CHLORIDE 64 MG TABLET PO SCH ×2 (10:51→22:40)
[2018-11-06] MEDS: ROSUVASTATIN 10 MG TABLET PO SCH (10:51)
[2018-11-06] MEDS: MULTIVITAMIN (OCUVITE) TABLET PO SCH (10:51)
[2018-11-06] MEDS: LISINOPRIL 5 MG TABLET PO SCH ×2 (10:51→22:40)
[2018-11-06] MEDS: GABAPENTIN 100 MG CAPSULE PO SCH ×2 (10:51→22:42)
[2018-11-06] MEDS: PANTOPRAZOLE 40 MG TABLET PO SCH (10:51)
[2018-11-06] MEDS: FUROSEMIDE 40 MG/4 ML VIAL IV SCH (10:56)
[2018-11-06] MEDS ORDERED: HYDROmorphone 2 MG TABLET PO PRN (16:27)
[2018-11-07] MEDS: LEVALBUTEROL 1.25 MG/3 ML NEB RESP TX SCH ×6 (03:23→19:32)
[2018-11-07] MEDS: methylPREDNISolone SOD SUC 40 MG/1 ML VIAL IV SCH ×2 (04:27→14:47)
[2018-11-07 04:47] LABS: Basophils % 0.1 % (0.0-0.8); Hematocrit 32.2 VOL% (35.7-47.0); Hemoglobin 9.9 GM/DL (12.0-16.0); Immature Granulocytes % 1.2 %; Immature Granulocytes Absolute 0.11 #; Lymphocytes # 0.9 10*3/uL (1.4-4.0); Lymphocytes % 9.5 % (21.3-54.2); Mean Corpuscular HGB Conc 30.7 GM/DL (32-36); Mean Corpuscular Hemoglobin 29 PG (27-34); Mean Corpuscular Volume 93.9 FL (87-102); Mean Platelet Volume 11.3 FL (9.6-12.0); Monocytes # 0.7 10*3/uL (0.11-0.8); Monocytes % 8.3 % (1.7-12.7); Neutrophils # 7.2 10*3/uL (1.4-7.4); Neutrophils % 80.9 % (38.7-73.9); Platelet Count 134 T/CUMM (130-400); Red Blood Count 3.43 MC/CUMM (3.8-5.5); Red Cell Distribution Width 14.5 % (9.3-17.3); White Blood Count 8.9 T/CUMM (4-12)
[2018-11-07 05:05] LABS: Calcium 8.1 MG/DL (8.5-10.1); Osmolality,Calculated 304.1 MOS/KG (273-304); Potassium 5.1 MMOL/L (3.5-5.1)
[2018-11-07] MEDS: ALLOPURINOL 100 MG TABLET PO SCH ×2 (09:54→21:15)
[2018-11-07] MEDS: MULTIVITAMIN (OCUVITE) TABLET PO SCH (09:54)
[2018-11-07] MEDS: FUROSEMIDE 40 MG/4 ML VIAL IV SCH (09:55)
[2018-11-07] MEDS: LISINOPRIL 5 MG TABLET PO SCH ×2 (09:55→21:15)
[2018-11-07] MEDS: ASPIRIN EC 81 MG TABLET PO SCH (09:55)
[2018-11-07] MEDS: PANTOPRAZOLE 40 MG TABLET PO SCH (09:55)
[2018-11-07] MEDS: ROSUVASTATIN 10 MG TABLET PO SCH (09:55)
[2018-11-07] MEDS: CARVEDILOL 3.125 MG TABLET PO SCH ×2 (09:55→21:14)
[2018-11-07] MEDS: GABAPENTIN 100 MG CAPSULE PO SCH ×2 (09:55→21:15)
[2018-11-07] MEDS: POTASSIUM CHLORIDE 20 MEQ TABLET PO SCH ×2 (09:56→21:14)
[2018-11-07] MEDS: MAGNESIUM CHLORIDE 64 MG TABLET PO SCH ×2 (09:56→21:15)
[2018-11-08] MEDS: LEVALBUTEROL 1.25 MG/3 ML NEB RESP TX SCH ×5 (00:21→14:38)
[2018-11-08] MEDS: LISINOPRIL 5 MG TABLET PO SCH ×2 (00:44→08:56)
[2018-11-08] MEDS: methylPREDNISolone SOD SUC 40 MG/1 ML VIAL IV SCH ×2 (02:03→15:13)
[2018-11-08 04:49] LABS: Basophils % 0.1 % (0.0-0.8); Hematocrit 30.4 VOL% (35.7-47.0); Hemoglobin 9.6 GM/DL (12.0-16.0); Immature Granulocytes % 0.9 %; Immature Granulocytes Absolute 0.09 #; Lymphocytes # 0.8 10*3/uL (1.4-4.0); Lymphocytes % 7.9 % (21.3-54.2); Mean Corpuscular HGB Conc 31.6 GM/DL (32-36); Mean Corpuscular Hemoglobin 29 PG (27-34); Mean Corpuscular Volume 92.4 FL (87-102); Mean Platelet Volume 11.3 FL (9.6-12.0); Monocytes # 0.4 10*3/uL (0.11-0.8); Neutrophils # 9.2 10*3/uL (1.4-7.4); Neutrophils % 87.1 % (38.7-73.9); Platelet Count 116 T/CUMM (130-400); Red Blood Count 3.29 MC/CUMM (3.8-5.5); Red Cell Distribution Width 14.5 % (9.3-17.3); White Blood Count 10.6 T/CUMM (4-12)
[2018-11-08 05:00] LABS: Calcium 7.9 MG/DL (8.5-10.1); Osmolality,Calculated 304.8 MOS/KG (273-304); Potassium 5.4 MMOL/L (3.5-5.1)
[2018-11-08] MEDS ORDERED: SODIUM CHLORIDE 0.9% 1,000 ML IV SCH (08:00)
[2018-11-08] MEDS ORDERED: SODIUM POLYSTYRENE SULFATE 15 GM/60 ML BOTTLE PO ONE (08:02)
[2018-11-08] MEDS: ASPIRIN EC 81 MG TABLET PO SCH (08:56)
[2018-11-08] MEDS: ROSUVASTATIN 10 MG TABLET PO SCH (08:56)
[2018-11-08] MEDS: ALLOPURINOL 100 MG TABLET PO SCH (08:56)
[2018-11-08] MEDS: CARVEDILOL 3.125 MG TABLET PO SCH (08:56)
[2018-11-08] MEDS: GABAPENTIN 100 MG CAPSULE PO SCH (08:56)
[2018-11-08] MEDS: PANTOPRAZOLE 40 MG TABLET PO SCH (08:57)
[2018-11-08] MEDS: MULTIVITAMIN (OCUVITE) TABLET PO SCH (08:57)
[2018-11-08] MEDS: FUROSEMIDE 40 MG/4 ML VIAL IV SCH (08:57)
[2018-11-08] MEDS ORDERED: FLUCONAZOLE 150 MG TABLET PO ONE (10:01)
[2018-11-08] MEDS: MAGNESIUM CHLORIDE 64 MG TABLET PO SCH (10:21)
[2018-11-08 11:55] VITALS: BP 110/54
[2018-11-08] MEDS: BISACODYL 5 MG TABLET PO PRN (14:54)
[2018-11-08] MEDS ORDERED: NYSTATIN CREAM 15 GM TUBE TOP SCH (21:00)
== END 2018-11-08 15:10 | disposition swing bed (61) | DRG 224 ==
LOC: N.ED 18:57 → N.EDINP 23:57 → N.3E 10-27 00:57 → N.TELES 11-05 14:46
PROVIDERS: ADMIT Family Medicine; ATTEND Family Medicine

== ENCOUNTER 2019-09-13 01:48 | Inpatient (IN) ==
[2019-09-13] MEDS ORDERED: ONDANSETRON 4 MG/2 ML VIAL IV STA (02:57)
[2019-09-13] MEDS ORDERED: methylPREDNISolone SOD SUC 125 MG/2 ML VIAL IV STA (02:57)
[2019-09-13] MEDS ORDERED: IPRATROPIUM 500 MCG/2.5 ML NEB RESP TX STA (02:59)
[2019-09-13 03:45] LABS: ABG Base Excess -0.6 MMOL/L (-2.5-2.5); ABG HCO3 23.9 MMOL/L (20-26); ABG Oxygen Saturation 96.7 % (95-100); ABG PCO2 47.9 MM HG (35-48); ABG PH 7.333 (7.35-7.45); Allen Test Positive
[2019-09-13 04:11] LABS: Basophils % 0.4 % (0.0-0.8); Eosinophils # 0.1 10*3/uL (0.0-0.87); Eosinophils % 0.6 % (0.00-10.9); Hemoglobin 7.4 GM/DL (12.0-16.0); Immature Granulocytes % 0.4 %; Immature Granulocytes Absolute 0.05 #; Lymphocytes # 0.7 10*3/uL (1.4-4.0); Lymphocytes % 6.1 % (21.3-54.2); Mean Corpuscular HGB Conc 27.4 GM/DL (32-36); Mean Corpuscular Volume 76.5 FL (87-102); Mean Platelet Volume 10.9 FL (9.6-12.0); Monocytes % 9.1 % (1.7-12.7); NRBC # 0.02 10*3/uL; Neutrophils % 83.4 % (38.7-73.9); Platelet Count 231 T/CUMM (130-400); Red Blood Count 3.53 MC/CUMM (3.8-5.5); Red Cell Distribution Width 18.7 % (9.3-17.3); White Blood Count 11.3 T/CUMM (4-12)
[2019-09-13 04:20] LABS: INR 0.9; PT Patient Result 10.3 SECS (9.6-12.2); Partial Thromboplastin Time 24.9 SECS (20.8-36.0)
[2019-09-13 04:37] LABS: Albumin 2.9 G/DL (3.4-5.0); Bilirubin,Total 0.6 MG/DL (0.2-1.0); Calcium 8.9 MG/DL (8.5-10.1); Osmolality,Calculated 278.8 MOS/KG (273-304); Total Protein 7.3 G/DL (6.4-8.3)
[2019-09-13] MEDS ORDERED: LEVOFLOXACIN INJ 500 MG in PREMIX 1 EACH IV STA (04:48)
[2019-09-13 05:44] LABS: Hypochromasia 2+; Ovalocytes 2+; Platelet Estimate Normal
[2019-09-13] MEDS ORDERED: ACETAMINOPHEN 325 MG TABLET PO PRN (07:22)
[2019-09-13] MEDS ORDERED: IPRATROPIUM 500 MCG/2.5 ML NEB RESP TX SCH (07:22)
[2019-09-13] MEDS ORDERED: ONDANSETRON 4 MG/2 ML VIAL IV PRN (07:22)
[2019-09-13] MEDS ORDERED: traMADol 50 MG TABLET PO PRN (08:30)
[2019-09-13] MEDS ORDERED: BUDESONIDE 0.5 MG INH SCH (09:00)
[2019-09-13] MEDS ORDERED: ARFORMOTEROL 15 MCG INH SCH (09:00)
[2019-09-13] MEDS ORDERED: LEVOFLOXACIN INJ 500 MG in PREMIX 1 EACH IV ONE (09:00)
[2019-09-13] MEDS ORDERED: FUROSEMIDE 40 MG TABLET PO SCH (09:00)
[2019-09-13] MEDS ORDERED: LEVOFLOXACIN 750 MG TABLET PO SCH (09:00)
[2019-09-13 09:08] LABS: Basophils % 0.1 % (0.0-0.8); Hematocrit 25.2 VOL% (35.7-47.0); Hemoglobin 7.1 GM/DL (12.0-16.0); Immature Granulocytes % 0.4 %; Immature Granulocytes Absolute 0.04 #; Lymphocytes # 0.4 10*3/uL (1.4-4.0); Lymphocytes % 3.8 % (21.3-54.2); Mean Corpuscular HGB Conc 28.2 GM/DL (32-36); Mean Corpuscular Volume 76.4 FL (87-102); Mean Platelet Volume 10.6 FL (9.6-12.0); Monocytes % 2.4 % (1.7-12.7); NRBC # 0.02 10*3/uL; Neutrophils % 93.3 % (38.7-73.9); Platelet Count 200 T/CUMM (130-400); Red Cell Distribution Width 18.6 % (9.3-17.3); White Blood Count 9.6 T/CUMM (4-12)
[2019-09-13] MEDS: BENZONATATE 100 MG CAPSULE PO PRN (09:43)
[2019-09-13] MEDS: PANTOPRAZOLE 40 MG TABLET PO SCH (09:43)
[2019-09-13] MEDS: lisinopriL 2.5 MG TABLET PO SCH (09:43)
[2019-09-13] MEDS: ROSUVASTATIN 10 MG TABLET PO SCH (09:43)
[2019-09-13] MEDS: ASPIRIN EC 81 MG TABLET PO SCH (09:43)
[2019-09-13] MEDS: POTASSIUM CHLORIDE 10 MEQ TABLET PO SCH (09:44)
[2019-09-13] MEDS: methylPREDNISolone SOD SUC 40 MG/1 ML VIAL IV SCH ×2 (09:44→20:41)
[2019-09-13] MEDS: carvediloL 3.125 MG TABLET PO SCH ×2 (09:44→20:39)
[2019-09-13] MEDS: MAGNESIUM CHLORIDE 64 MG TABLET PO SCH (09:44)
[2019-09-13] MEDS: allopurinoL 100 MG TABLET PO SCH (09:44)
[2019-09-13] MEDS ORDERED: ALBUTEROL 2.5 MG/3 ML NEB RESP TX SCH (11:00)
[2019-09-13] MEDS: ALBUTEROL/IPRATROPIUM 3 ML NEB RESP TX SCH ×2 (11:15→14:30)
[2019-09-13 11:22] LABS: Hypochromasia 2+; Lymphocytes 1 % (20-55); Metamyelocytes 1 %; Microcytosis 2+; Segmented Neutrophils 97 % (50-85); Total Cells Counted 100
[2019-09-13 11:23] LABS: Ovalocytes Few; Platelet Estimate Normal; Polychromasia Slight
[2019-09-13] MEDS: guaiFENesin 200 MG/10 ML UDCUP PO PRN ×2 (12:15→20:39)
[2019-09-13] MEDS ORDERED: SODIUM CHLORIDE 0.9% 1,000 ML IV PRN (14:18)
[2019-09-13 14:24] LABS: Apearance,Urine CLEAR (Clear); Bacteria,Urine Few /HPF (Few); Bilirubin,Urine Negative (Negative); Blood, Urine Negative (Negative); Glucose,Urine (UA) Negative (Negative); Hyaline Casts,Urine 3 /LPF (0-3); Ketones,Urine Negative (Negative); Mucus,Urine Occasional /LPF (Occasional); Nitrite,Urine Negative (Negative); Protein,Urine Negative; Squamous Epithelial Cell,Urine Occasional /HPF (0-10); Urine Color Yellow (Yellow); Urine Specific Gravity 1.016 (1.001-1.035); Urine Urobilinogen < 2.0 EU/DL (0.2-1.0)
[2019-09-13] MEDS: IPRATROPIUM 500 MCG/2.5 ML NEB RESP TX SCH ×2 (15:47→19:58)
[2019-09-13] MEDS ORDERED: FUROSEMIDE 20 MG/2 ML VIAL IV ONE (17:42)
[2019-09-13] MEDS: ARFORMOTEROL 15 MCG/2 ML NEB RESP TX SCH (19:58)
[2019-09-13] MEDS: BUDESONIDE 0.5 MG/2 ML NEB RESP TX SCH (19:58)
[2019-09-14] MEDS: IPRATROPIUM 500 MCG/2.5 ML NEB RESP TX SCH ×4 (00:28→19:22)
[2019-09-14 01:30] LABS: Basophils % 0.1 % (0.0-0.8); Hematocrit 30.1 VOL% (35.7-47.0); Hemoglobin 8.9 GM/DL (12.0-16.0); Immature Granulocytes % 0.3 %; Immature Granulocytes Absolute 0.02 #; Lymphocytes # 0.6 10*3/uL (1.4-4.0); Lymphocytes % 8.9 % (21.3-54.2); Mean Corpuscular HGB Conc 29.6 GM/DL (32-36); Mean Platelet Volume 10.8 FL (9.6-12.0); Monocytes % 4.1 % (1.7-12.7); NRBC # 0.03 10*3/uL; Neutrophils % 86.6 % (38.7-73.9); Platelet Count 181 T/CUMM (130-400); Red Blood Count 3.86 MC/CUMM (3.8-5.5); Red Cell Distribution Width 17.8 % (9.3-17.3); White Blood Count 6.8 T/CUMM (4-12)
[2019-09-14 01:49] LABS: Calcium 8.3 MG/DL (8.5-10.1); Osmolality,Calculated 286.7 MOS/KG (273-304)
[2019-09-14] MEDS: BUDESONIDE 0.5 MG/2 ML NEB RESP TX SCH ×2 (07:41→19:22)
[2019-09-14] MEDS: ARFORMOTEROL 15 MCG/2 ML NEB RESP TX SCH ×2 (07:41→19:22)
[2019-09-14] MEDS: MAGNESIUM CHLORIDE 64 MG TABLET PO SCH (09:43)
[2019-09-14] MEDS: ASPIRIN EC 81 MG TABLET PO SCH (09:44)
[2019-09-14] MEDS: allopurinoL 100 MG TABLET PO SCH (09:44)
[2019-09-14] MEDS: FUROSEMIDE 40 MG/4 ML VIAL IV SCH (09:44)
[2019-09-14] MEDS: POTASSIUM CHLORIDE 10 MEQ TABLET PO SCH (09:44)
[2019-09-14] MEDS: BENZONATATE 100 MG CAPSULE PO PRN (09:44)
[2019-09-14] MEDS: ROSUVASTATIN 10 MG TABLET PO SCH (09:44)
[2019-09-14] MEDS: PANTOPRAZOLE 40 MG TABLET PO SCH (09:44)
[2019-09-14] MEDS: carvediloL 3.125 MG TABLET PO SCH ×2 (09:44→21:02)
[2019-09-14] MEDS: LEVOFLOXACIN INJ 250 MG in PREMIX 1 EACH IV SCH (09:45)
[2019-09-14] MEDS: methylPREDNISolone SOD SUC 40 MG/1 ML VIAL IV SCH ×2 (09:46→21:04)
[2019-09-14] MEDS: lisinopriL 2.5 MG TABLET PO SCH (09:46)
[2019-09-14] MEDS: ASCORBIC ACID 500 MG TABLET PO SCH ×2 (13:32→21:02)
[2019-09-14] MEDS: guaiFENesin 200 MG/10 ML UDCUP PO PRN ×2 (14:24→21:02)
[2019-09-14] MEDS: NYSTATIN OINT 15 GM TUBE TOP SCH (21:04)
[2019-09-14] MEDS: NYSTATIN POWDER 15 GM BOTTLE TOP SCH (21:04)
[2019-09-15] MEDS: IPRATROPIUM 500 MCG/2.5 ML NEB RESP TX SCH ×4 (00:41→19:39)
[2019-09-15] MEDS: guaiFENesin 200 MG/10 ML UDCUP PO PRN ×5 (01:32→21:28)
[2019-09-15] MEDS: BUDESONIDE 0.5 MG/2 ML NEB RESP TX SCH ×2 (07:10→19:39)
[2019-09-15] MEDS: ARFORMOTEROL 15 MCG/2 ML NEB RESP TX SCH ×2 (07:10→19:39)
[2019-09-15] MEDS: ASPIRIN EC 81 MG TABLET PO SCH (10:02)
[2019-09-15] MEDS: ASCORBIC ACID 500 MG TABLET PO SCH ×2 (10:03→21:27)
[2019-09-15] MEDS: PANTOPRAZOLE 40 MG TABLET PO SCH (10:03)
[2019-09-15] MEDS: ROSUVASTATIN 10 MG TABLET PO SCH (10:03)
[2019-09-15] MEDS: carvediloL 3.125 MG TABLET PO SCH ×2 (10:03→21:27)
[2019-09-15] MEDS: BENZONATATE 100 MG CAPSULE PO PRN (10:03)
[2019-09-15] MEDS: POTASSIUM CHLORIDE 10 MEQ TABLET PO SCH (10:04)
[2019-09-15] MEDS: LEVOFLOXACIN INJ 250 MG in PREMIX 1 EACH IV SCH (10:04)
[2019-09-15] MEDS: lisinopriL 2.5 MG TABLET PO SCH (10:04)
[2019-09-15] MEDS: MAGNESIUM CHLORIDE 64 MG TABLET PO SCH (10:04)
[2019-09-15] MEDS: allopurinoL 100 MG TABLET PO SCH (10:04)
[2019-09-15] MEDS: FUROSEMIDE 40 MG/4 ML VIAL IV SCH (10:05)
[2019-09-15] MEDS: methylPREDNISolone SOD SUC 40 MG/1 ML VIAL IV SCH ×2 (10:07→21:28)
[2019-09-15] MEDS: NYSTATIN POWDER 15 GM BOTTLE TOP SCH ×2 (10:26→21:29)
[2019-09-15] MEDS: NYSTATIN OINT 15 GM TUBE TOP SCH ×2 (10:26→21:28)
[2019-09-15] MEDS: SPIRONOLACTONE 25 MG TABLET PO SCH (13:42)
[2019-09-15] MEDS: MEGESTROL 40 MG TABLET PO SCH ×2 (16:25→16:26)
[2019-09-16] MEDS: IPRATROPIUM 500 MCG/2.5 ML NEB RESP TX SCH ×4 (01:00→19:05)
[2019-09-16] MEDS: guaiFENesin 200 MG/10 ML UDCUP PO PRN ×3 (01:42→20:56)
[2019-09-16] MEDS: BENZONATATE 100 MG CAPSULE PO PRN (05:07)
[2019-09-16 05:18] LABS: Albumin 2.7 G/DL (3.4-5.0); Bilirubin,Total 0.5 MG/DL (0.2-1.0); Calcium 9.1 MG/DL (8.5-10.1); Osmolality,Calculated 295.3 MOS/KG (273-304); Total Protein 7.1 G/DL (6.4-8.3)
[2019-09-16 05:24] LABS: Basophils % 0.1 % (0.0-0.8); Hematocrit 35.6 VOL% (35.7-47.0); Hemoglobin 10.4 GM/DL (12.0-16.0); Immature Granulocytes % 0.9 %; Immature Granulocytes Absolute 0.09 #; Lymphocytes # 0.6 10*3/uL (1.4-4.0); Lymphocytes % 5.9 % (21.3-54.2); Mean Corpuscular HGB Conc 29.2 GM/DL (32-36); Mean Corpuscular Volume 77.1 FL (87-102); Mean Platelet Volume 10.5 FL (9.6-12.0); Monocytes % 3.3 % (1.7-12.7); NRBC # 0.04 10*3/uL; Neutrophils % 89.8 % (38.7-73.9); Platelet Count 220 T/CUMM (130-400); Red Blood Count 4.62 MC/CUMM (3.8-5.5); Red Cell Distribution Width 19.1 % (9.3-17.3)
[2019-09-16] MEDS: ARFORMOTEROL 15 MCG/2 ML NEB RESP TX SCH ×2 (07:51→19:05)
[2019-09-16] MEDS: BUDESONIDE 0.5 MG/2 ML NEB RESP TX SCH ×2 (07:51→19:05)
[2019-09-16] MEDS: SPIRONOLACTONE 25 MG TABLET PO SCH (09:29)
[2019-09-16] MEDS: ROSUVASTATIN 10 MG TABLET PO SCH (09:29)
[2019-09-16] MEDS: carvediloL 3.125 MG TABLET PO SCH ×2 (09:30→20:55)
[2019-09-16] MEDS: PANTOPRAZOLE 40 MG TABLET PO SCH (09:30)
[2019-09-16] MEDS: allopurinoL 100 MG TABLET PO SCH (09:30)
[2019-09-16] MEDS: MAGNESIUM CHLORIDE 64 MG TABLET PO SCH (09:30)
[2019-09-16] MEDS: MEGESTROL 40 MG TABLET PO SCH ×2 (09:30→17:14)
[2019-09-16] MEDS: LOSARTAN 25 MG TABLET PO SCH (09:31)
[2019-09-16] MEDS: NYSTATIN POWDER 15 GM BOTTLE TOP SCH ×2 (09:31→21:05)
[2019-09-16] MEDS: NYSTATIN OINT 15 GM TUBE TOP SCH ×2 (09:31→21:07)
[2019-09-16] MEDS: ASCORBIC ACID 500 MG TABLET PO SCH ×2 (09:31→20:55)
[2019-09-16] MEDS: ASPIRIN EC 81 MG TABLET PO SCH (09:31)
[2019-09-16] MEDS: methylPREDNISolone SOD SUC 40 MG/1 ML VIAL IV SCH ×2 (09:32→21:01)
[2019-09-16] MEDS: FUROSEMIDE 40 MG/4 ML VIAL IV SCH (09:35)
[2019-09-16] MEDS: LEVOFLOXACIN INJ 250 MG in PREMIX 1 EACH IV SCH (09:40)
[2019-09-16] MEDS ORDERED: LORazepam 2 MG/1 ML VIAL IV PRN (22:01)
[2019-09-17] MEDS: IPRATROPIUM 500 MCG/2.5 ML NEB RESP TX SCH ×5 (00:45→19:41)
[2019-09-17] MEDS ORDERED: TUBERCULIN SKIN TEST 0.1 ML SYRINGE INTRADERM ONE (07:36)
[2019-09-17] MEDS: ARFORMOTEROL 15 MCG/2 ML NEB RESP TX SCH ×3 (07:56→19:41)
[2019-09-17] MEDS: BUDESONIDE 0.5 MG/2 ML NEB RESP TX SCH ×3 (07:56→19:41)
[2019-09-17] MEDS ORDERED: methylPREDNISolone SOD SUC 40 MG/1 ML VIAL IV ONE (07:57)
[2019-09-17] MEDS: FUROSEMIDE 40 MG/4 ML VIAL IV SCH (08:08)
[2019-09-17] MEDS: LEVOFLOXACIN INJ 250 MG in PREMIX 1 EACH IV SCH (08:29)
[2019-09-17] MEDS: MEGESTROL 40 MG TABLET PO SCH ×2 (08:29→17:15)
[2019-09-17] MEDS: ROSUVASTATIN 10 MG TABLET PO SCH (08:33)
[2019-09-17] MEDS: MAGNESIUM CHLORIDE 64 MG TABLET PO SCH (08:33)
[2019-09-17] MEDS: ASPIRIN EC 81 MG TABLET PO SCH (08:33)
[2019-09-17] MEDS: PANTOPRAZOLE 40 MG TABLET PO SCH (08:34)
[2019-09-17] MEDS: ASCORBIC ACID 500 MG TABLET PO SCH ×2 (08:34→22:51)
[2019-09-17] MEDS: carvediloL 3.125 MG TABLET PO SCH ×2 (08:34→22:51)
[2019-09-17] MEDS: allopurinoL 100 MG TABLET PO SCH (08:35)
[2019-09-17] MEDS: LOSARTAN 25 MG TABLET PO SCH (08:35)
[2019-09-17] MEDS: methylPREDNISolone SOD SUC 40 MG/1 ML VIAL IV SCH ×2 (08:39→22:55)
[2019-09-17] MEDS: NYSTATIN OINT 15 GM TUBE TOP SCH ×2 (08:40→22:59)
[2019-09-17] MEDS: NYSTATIN POWDER 15 GM BOTTLE TOP SCH ×2 (08:40→22:59)
[2019-09-17] MEDS: SPIRONOLACTONE 25 MG TABLET PO SCH (08:42)
[2019-09-17 08:54] LABS: Allen Test Positive
[2019-09-17 08:55] LABS: ABG Base Excess 3.9 MMOL/L (-2.5-2.5); ABG HCO3 30.3 MMOL/L (20-26); ABG Oxygen Saturation 95.3 % (95-100); ABG PCO2 53.9 MM HG (35-48); ABG PH 7.367 (7.35-7.45); ABG PO2 79.7 MM HG (80-95); ABG TCO2 31.9 MMOL/L (23-27)
[2019-09-17] MEDS: ENOXAPARIN 40 MG/0.4 ML SYRINGE SUBCUT SCH (10:48)
[2019-09-18] MEDS: guaiFENesin 200 MG/10 ML UDCUP PO PRN (00:48)
[2019-09-18] MEDS: IPRATROPIUM 500 MCG/2.5 ML NEB RESP TX SCH ×4 (01:18→18:09)
[2019-09-18 06:49] LABS: Calcium 8.7 MG/DL (8.5-10.1); Osmolality,Calculated 299.1 MOS/KG (273-304)
[2019-09-18 07:00] LABS: Basophils % 0.1 % (0.0-0.8); Eosinophils % 0.1 % (0.00-10.9); Hemoglobin 11.3 GM/DL (12.0-16.0); Immature Granulocytes % 0.9 %; Immature Granulocytes Absolute 0.08 #; Lymphocytes # 0.7 10*3/uL (1.4-4.0); Lymphocytes % 7.9 % (21.3-54.2); Mean Corpuscular HGB Conc 29.7 GM/DL (32-36); Mean Corpuscular Volume 76.9 FL (87-102); Monocytes % 2.8 % (1.7-12.7); Neutrophils % 88.2 % (38.7-73.9); Platelet Count 212 T/CUMM (130-400); Red Blood Count 4.94 MC/CUMM (3.8-5.5); Red Cell Distribution Width 20.4 % (9.3-17.3); White Blood Count 8.9 T/CUMM (4-12)
[2019-09-18 07:04] LABS: Platelet Estimate Normal
[2019-09-18 07:05] LABS: Acanthocytes Few; Anisocytosis 1+; Macrocytosis Slight; Ovalocytes Few; Poikilocytosis Slight; Target Cells Few
[2019-09-18] MEDS: BUDESONIDE 0.5 MG/2 ML NEB RESP TX SCH ×2 (08:02→18:09)
[2019-09-18] MEDS: ARFORMOTEROL 15 MCG/2 ML NEB RESP TX SCH ×2 (08:20→18:09)
[2019-09-18] MEDS ORDERED: FUROSEMIDE 20 MG/2 ML VIAL IV ONE (08:31)
[2019-09-18] MEDS ORDERED: methylPREDNISolone SOD SUC 40 MG/1 ML VIAL IV ONE (09:21)
[2019-09-18] MEDS: LEVOFLOXACIN INJ 250 MG in PREMIX 1 EACH IV SCH (09:23)
[2019-09-18] MEDS: FUROSEMIDE 40 MG/4 ML VIAL IV SCH (09:24)
[2019-09-18] MEDS: PANTOPRAZOLE 40 MG TABLET PO SCH (09:25)
[2019-09-18] MEDS: ENOXAPARIN 40 MG/0.4 ML SYRINGE SUBCUT SCH (09:25)
[2019-09-18] MEDS: SERTRALINE 50 MG TABLET PO SCH (09:25)
[2019-09-18] MEDS: methylPREDNISolone SOD SUC 40 MG/1 ML VIAL IV SCH ×2 (09:25→21:09)
[2019-09-18] MEDS: ASCORBIC ACID 500 MG TABLET PO SCH ×2 (09:25→21:08)
[2019-09-18] MEDS: MAGNESIUM CHLORIDE 64 MG TABLET PO SCH (09:25)
[2019-09-18] MEDS: SPIRONOLACTONE 25 MG TABLET PO SCH (09:25)
[2019-09-18] MEDS: MEGESTROL 40 MG TABLET PO SCH ×2 (09:25→17:48)
[2019-09-18] MEDS: ROSUVASTATIN 10 MG TABLET PO SCH (09:25)
[2019-09-18] MEDS: allopurinoL 100 MG TABLET PO SCH (09:25)
[2019-09-18] MEDS: carvediloL 3.125 MG TABLET PO SCH ×2 (09:26→21:08)
[2019-09-18] MEDS: LOSARTAN 25 MG TABLET PO SCH (09:26)
[2019-09-18] MEDS: NYSTATIN OINT 15 GM TUBE TOP SCH ×2 (09:27→21:10)
[2019-09-18] MEDS: NYSTATIN POWDER 15 GM BOTTLE TOP SCH ×2 (09:28→21:10)
[2019-09-18] MEDS: ASPIRIN EC 81 MG TABLET PO SCH (09:45)
[2019-09-19] MEDS: IPRATROPIUM 500 MCG/2.5 ML NEB RESP TX SCH ×2 (00:11→07:53)
[2019-09-19] MEDS: BUDESONIDE 0.5 MG/2 ML NEB RESP TX SCH (07:53)
[2019-09-19] MEDS: ARFORMOTEROL 15 MCG/2 ML NEB RESP TX SCH (07:53)
[2019-09-19] MEDS ORDERED: carvediloL 6.25 MG TABLET PO SCH (09:00)
[2019-09-19] MEDS: ASCORBIC ACID 500 MG TABLET PO SCH (09:13)
[2019-09-19] MEDS: LOSARTAN 25 MG TABLET PO SCH (09:14)
[2019-09-19] MEDS: ROSUVASTATIN 10 MG TABLET PO SCH (09:14)
[2019-09-19] MEDS: MAGNESIUM CHLORIDE 64 MG TABLET PO SCH (09:14)
[2019-09-19] MEDS: allopurinoL 100 MG TABLET PO SCH (09:14)
[2019-09-19] MEDS: ASPIRIN EC 81 MG TABLET PO SCH (09:14)
[2019-09-19] MEDS: SPIRONOLACTONE 25 MG TABLET PO SCH (09:14)
[2019-09-19] MEDS: MEGESTROL 40 MG TABLET PO SCH (09:14)
[2019-09-19] MEDS: PANTOPRAZOLE 40 MG TABLET PO SCH (09:14)
[2019-09-19] MEDS: ENOXAPARIN 40 MG/0.4 ML SYRINGE SUBCUT SCH (09:15)
[2019-09-19] MEDS: methylPREDNISolone SOD SUC 40 MG/1 ML VIAL IV SCH (09:15)
[2019-09-19] MEDS: SERTRALINE 50 MG TABLET PO SCH (09:15)
[2019-09-19] MEDS: FUROSEMIDE 40 MG/4 ML VIAL IV SCH (09:15)
[2019-09-19] MEDS: LEVOFLOXACIN INJ 250 MG in PREMIX 1 EACH IV SCH (09:17)
[2019-09-19] MEDS: NYSTATIN POWDER 15 GM BOTTLE TOP SCH (09:18)
[2019-09-19] MEDS: NYSTATIN OINT 15 GM TUBE TOP SCH (09:18)
[2019-09-19 11:59] VITALS: BP 127/63
== END 2019-09-19 12:38 | DRG 291 ==
LOC: N.ED 01:48 → N.EDINP 05:01 → N.TELEN 06:45
PROVIDERS: ADMIT Family Medicine; ATTEND Family Medicine

== ENCOUNTER 2019-10-29 14:32 | Inpatient (IN) ==
[2019-10-29] MEDS ORDERED: FUROSEMIDE 100 MG/10 ML VIAL IV STA (15:06)
[2019-10-29] MEDS ORDERED: LEVOFLOXACIN INJ 500 MG in PREMIX 1 EACH IV STA (15:10)
[2019-10-29 15:35] LABS: Basophils # 0.1 10*3/uL (0.0-0.2); Basophils % 0.4 % (0.0-0.8); Eosinophils % 0.2 % (0.00-10.9); Hematocrit 29.7 VOL% (35.7-47.0); Hemoglobin 8.9 GM/DL (12.0-16.0); Immature Granulocytes % 1.1 %; Immature Granulocytes Absolute 0.17 #; Lymphocytes # 0.7 10*3/uL (1.4-4.0); Lymphocytes % 4.2 % (21.3-54.2); Mean Platelet Volume 9.5 FL (9.6-12.0); Monocytes % 4.1 % (1.7-12.7); Platelet Count 168 T/CUMM (130-400); Red Blood Count 3.62 MC/CUMM (3.8-5.5); White Blood Count 16.1 T/CUMM (4-12)
[2019-10-29 16:00] LABS: Albumin 2.8 G/DL (3.4-5.0); Bilirubin,Total 0.5 MG/DL (0.2-1.0); Calcium 8.4 MG/DL (8.5-10.1); Osmolality,Calculated 270.5 MOS/KG (273-304); Total Protein 6.8 G/DL (6.4-8.3)
[2019-10-29 16:21] LABS: Band Neutrophils 1 % (0-10); Eosinophils 1 % (0-10); Lymphocytes 8 % (20-55); Segmented Neutrophils 88 % (50-85); Total Cells Counted 100
[2019-10-29 16:22] LABS: Anisocytosis 1+; Elliptocytes Few; Hypochromasia 1+; Microcytosis 1+; Platelet Estimate Normal; Poikilocytosis 1+; Polychromasia 1+; Target Cells Slight
[2019-10-29 16:26] LABS: Apearance,Urine CLEAR (Clear); Bilirubin,Urine Negative (Negative); Blood, Urine Negative (Negative); Glucose,Urine (UA) Negative (Negative); Ketones,Urine Negative (Negative); Mucus,Urine Occasional /LPF (Occasional); Nitrite,Urine Negative (Negative); Protein,Urine Negative; RBC,Urine 2 /HPF (0-4); Urine Color Yellow (Yellow); Urine Specific Gravity 1.012 (1.001-1.035); Urine Urobilinogen < 2.0 EU/DL (0.2-1.0)
[2019-10-29] MEDS ORDERED: ONDANSETRON 4 MG/2 ML VIAL IV PRN (16:49)
[2019-10-29] MEDS ORDERED: ACETAMINOPHEN 325 MG TABLET PO PRN (16:49)
[2019-10-29] MEDS ORDERED: traMADol 50 MG TABLET PO PRN (19:00)
[2019-10-29] MEDS: IPRATROPIUM 500 MCG/2.5 ML NEB RESP TX SCH (19:26)
[2019-10-29] MEDS: ARFORMOTEROL 15 MCG/2 ML NEB RESP TX SCH (19:26)
[2019-10-29] MEDS: BUDESONIDE 0.5 MG/2 ML NEB RESP TX SCH (19:26)
[2019-10-29] MEDS: DOCUSATE SODIUM 100 MG CAPSULE PO SCH (20:23)
[2019-10-29] MEDS: carvediloL 3.125 MG TABLET PO SCH (20:27)
[2019-10-29] MEDS ORDERED: ENOXAPARIN 30 MG/0.3 ML SYRINGE SUBCUT SCH (21:00)
[2019-10-30] MEDS: IPRATROPIUM 500 MCG/2.5 ML NEB RESP TX SCH ×4 (01:50→19:39)
[2019-10-30] MEDS: ARFORMOTEROL 15 MCG/2 ML NEB RESP TX SCH ×2 (06:58→19:39)
[2019-10-30] MEDS: BUDESONIDE 0.5 MG/2 ML NEB RESP TX SCH ×2 (06:58→19:39)
[2019-10-30] MEDS ORDERED: methylPREDNISolone SOD SUC 40 MG/1 ML VIAL ONE (08:22)
[2019-10-30] MEDS ORDERED: methylPREDNISolone SOD SUC 40 MG/1 ML VIAL IV ONE (08:30)
[2019-10-30] MEDS ORDERED: GLUCAGON 1 MG VIAL IM ONE (08:30)
[2019-10-30 08:53] LABS: Basophils # 0.1 10*3/uL (0.0-0.2); Basophils % 0.2 % (0.0-0.8); Hematocrit 32.8 VOL% (35.7-47.0); Hemoglobin 9.8 GM/DL (12.0-16.0); Immature Granulocytes % 2.2 %; Immature Granulocytes Absolute 0.56 #; Lymphocytes % 7.9 % (21.3-54.2); Mean Corpuscular HGB Conc 29.9 GM/DL (32-36); Mean Corpuscular Volume 82.2 FL (87-102); Mean Platelet Volume 10.2 FL (9.6-12.0); Monocytes % 6.5 % (1.7-12.7); Neutrophils % 83.2 % (38.7-73.9); Platelet Count 169 T/CUMM (130-400); Red Blood Count 3.99 MC/CUMM (3.8-5.5); Red Cell Distribution Width 27.8 % (9.3-17.3)
[2019-10-30] MEDS ORDERED: FUROSEMIDE 40 MG TABLET PO SCH (09:00)
[2019-10-30] MEDS ORDERED: LOSARTAN 25 MG TABLET PO SCH (09:00)
[2019-10-30] MEDS ORDERED: POTASSIUM CHLORIDE 10 MEQ TABLET PO SCH (09:00)
[2019-10-30] MEDS ORDERED: SPIRONOLACTONE 25 MG TABLET PO SCH (09:00)
[2019-10-30] MEDS ORDERED: DEXTROSE 10% 250 ML IV ONE (09:03)
[2019-10-30 09:22] LABS: CKMB % 0.3 %; Osmolality,Calculated 270.7 MOS/KG (273-304); Troponin I 0.204 NG/ML (0.00-0.045)
[2019-10-30 09:28] LABS: ABG Base Excess 0.5 MMOL/L (-2.5-2.5); ABG Oxygen Saturation 98.7 % (95-100); ABG PCO2 33.5 MM HG (35-48); ABG PH 7.473 (7.35-7.45); Allen Test Positive; Pt O2 Delivery Device BIPAP
[2019-10-30] MEDS: PHENYLEPHRINE DRIP 40 MG/250 ML PREMIX IV PRN (09:30)
[2019-10-30] MEDS: carvediloL 3.125 MG TABLET PO SCH (09:46)
[2019-10-30] MEDS: methylPREDNISolone SOD SUC 40 MG/1 ML VIAL IV SCH ×2 (09:46→16:37)
[2019-10-30] MEDS: allopurinoL 100 MG TABLET PO SCH (09:47)
[2019-10-30] MEDS: SERTRALINE 50 MG TABLET PO SCH (09:47)
[2019-10-30] MEDS: ROSUVASTATIN 10 MG TABLET PO SCH (09:47)
[2019-10-30] MEDS: MAGNESIUM CHLORIDE 64 MG TABLET PO SCH (09:47)
[2019-10-30] MEDS: DOCUSATE SODIUM 100 MG CAPSULE PO SCH ×2 (09:47→20:23)
[2019-10-30] MEDS: ASPIRIN EC 81 MG TABLET PO SCH (09:47)
[2019-10-30] MEDS: PANTOPRAZOLE 40 MG TABLET PO SCH (09:47)
[2019-10-30] MEDS: DEXTROSE 10% 250 ML IV SCH (09:49)
[2019-10-30] MEDS ORDERED: DEXTROSE 10% 25 GM/250 ML BAG IV PRN (09:55)
[2019-10-30] MEDS: DEXTROSE 5% NACL 0.45% 1,000 ML IV SCH ×3 (10:03→22:44)
[2019-10-30 10:07] LABS: Band Neutrophils 30 % (0-10); Lymphocytes 8 % (20-55); Metamyelocytes 1 %; Platelet Estimate Normal; Segmented Neutrophils 56 % (50-85); Total Cells Counted 100
[2019-10-30 10:08] LABS: Anisocytosis 2+; Ovalocytes Few; Poikilocytosis Slight
[2019-10-30] MEDS: CLINDAMYCIN INJ 600 MG in PREMIX 1 EACH IV SCH ×2 (10:12→16:43)
[2019-10-30] MEDS ORDERED: FUROSEMIDE 40 MG/4 ML VIAL IV ONE (10:49)
[2019-10-30] MEDS: ALBUTEROL/IPRATROPIUM 3 ML NEB RESP TX SCH ×2 (14:34→19:39)
[2019-10-30] MEDS ORDERED: VANCOMYCIN INJ 1,250 MG in SODIUM CHLORIDE 0.9% 250 ML IV SCH (16:00)
[2019-10-31] MEDS: ALBUTEROL/IPRATROPIUM 3 ML NEB RESP TX SCH ×3 (01:00→13:16)
[2019-10-31] MEDS: IPRATROPIUM 500 MCG/2.5 ML NEB RESP TX SCH ×4 (01:00→20:00)
[2019-10-31] MEDS: PHENYLEPHRINE DRIP 40 MG/250 ML PREMIX IV PRN ×2 (01:34→18:13)
[2019-10-31] MEDS: CLINDAMYCIN INJ 600 MG in PREMIX 1 EACH IV SCH ×3 (02:17→17:30)
[2019-10-31] MEDS: methylPREDNISolone SOD SUC 40 MG/1 ML VIAL IV SCH ×3 (02:17→17:28)
[2019-10-31 04:46] LABS: Basophils % 0.1 % (0.0-0.8); Hematocrit 30.2 VOL% (35.7-47.0); Hemoglobin 9.1 GM/DL (12.0-16.0); Immature Granulocytes % 1.2 %; Immature Granulocytes Absolute 0.26 #; Lymphocytes # 1.2 10*3/uL (1.4-4.0); Lymphocytes % 5.4 % (21.3-54.2); Mean Corpuscular HGB Conc 30.1 GM/DL (32-36); Mean Corpuscular Volume 81.6 FL (87-102); Mean Platelet Volume 10.5 FL (9.6-12.0); Monocytes % 2.8 % (1.7-12.7); Neutrophils % 90.5 % (38.7-73.9); Platelet Count 153 T/CUMM (130-400); Red Cell Distribution Width 27.3 % (9.3-17.3); White Blood Count 22.3 T/CUMM (4-12)
[2019-10-31 05:20] LABS: Calcium 8.5 MG/DL (8.5-10.1); Osmolality,Calculated 282.7 MOS/KG (273-304)
[2019-10-31 05:34] LABS: Band Neutrophils 3 % (0-10); Eosinophils 1 % (0-10); Lymphocytes 6 % (20-55); Metamyelocytes 1 %; Segmented Neutrophils 86 % (50-85); Total Cells Counted 100
[2019-10-31 05:35] LABS: Hypochromasia 1+; Platelet Estimate Normal
[2019-10-31] MEDS: BUDESONIDE 0.5 MG/2 ML NEB RESP TX SCH ×2 (06:49→20:00)
[2019-10-31] MEDS: ARFORMOTEROL 15 MCG/2 ML NEB RESP TX SCH ×2 (06:49→20:00)
[2019-10-31] MEDS: DEXTROSE 5% NACL 0.45% 1,000 ML IV SCH (08:59)
[2019-10-31] MEDS: allopurinoL 100 MG TABLET PO SCH (09:09)
[2019-10-31] MEDS: SERTRALINE 50 MG TABLET PO SCH (09:10)
[2019-10-31] MEDS: MAGNESIUM CHLORIDE 64 MG TABLET PO SCH (09:10)
[2019-10-31] MEDS: ASPIRIN EC 81 MG TABLET PO SCH (09:11)
[2019-10-31] MEDS: ROSUVASTATIN 10 MG TABLET PO SCH (09:11)
[2019-10-31] MEDS: PANTOPRAZOLE 40 MG TABLET PO SCH (09:12)
[2019-10-31] MEDS: DOCUSATE SODIUM 100 MG CAPSULE PO SCH ×2 (09:12→20:12)
[2019-10-31] MEDS ORDERED: VANCOMYCIN INJ 1,000 MG in SODIUM CHLORIDE 0.9% 250 ML IV PRN ×2 (12:09→14:02)
[2019-10-31] MEDS ORDERED: VANCOMYCIN INJ 1,000 MG in SODIUM CHLORIDE 0.9% 250 ML IV ONE (13:00)
[2019-10-31] MEDS: DEXTROSE 5% NACL 0.9% 1,000 ML IV SCH (13:41)
[2019-10-31] MEDS: IPRATROPIUM 500 MCG/2.5 ML NEB RESP TX PRN (17:18)
[2019-11-01] MEDS: methylPREDNISolone SOD SUC 40 MG/1 ML VIAL IV SCH ×3 (01:04→17:56)
[2019-11-01] MEDS: CLINDAMYCIN INJ 600 MG in PREMIX 1 EACH IV SCH ×3 (01:04→17:56)
[2019-11-01] MEDS: IPRATROPIUM 500 MCG/2.5 ML NEB RESP TX SCH ×4 (01:48→19:40)
[2019-11-01] MEDS: DEXTROSE 5% NACL 0.9% 1,000 ML IV SCH ×2 (03:17→17:56)
[2019-11-01 05:45] LABS: Hemoglobin 7.9 GM/DL (12.0-16.0); Immature Granulocytes % 1.1 %; Immature Granulocytes Absolute 0.13 #; Lymphocytes # 0.6 10*3/uL (1.4-4.0); Lymphocytes % 4.7 % (21.3-54.2); Mean Corpuscular HGB Conc 30.4 GM/DL (32-36); Mean Corpuscular Volume 80.7 FL (87-102); Mean Platelet Volume 10.5 FL (9.6-12.0); Monocytes % 3.3 % (1.7-12.7); Neutrophils % 90.9 % (38.7-73.9); Platelet Count 134 T/CUMM (130-400); Red Blood Count 3.22 MC/CUMM (3.8-5.5); Red Cell Distribution Width 27.5 % (9.3-17.3); White Blood Count 11.8 T/CUMM (4-12)
[2019-11-01 06:15] LABS: Anisocytosis 1+; Band Neutrophils 5 % (0-10); Hypochromasia 1+; Lymphocytes 1 % (20-55); Microcytosis 1+; Ovalocytes Few; Segmented Neutrophils 93 % (50-85); Total Cells Counted 100
[2019-11-01 06:16] LABS: Platelet Estimate Adequate; Polychromasia Slight
[2019-11-01 06:20] LABS: Calcium 7.5 MG/DL (8.5-10.1); Osmolality,Calculated 288.5 MOS/KG (273-304)
[2019-11-01] MEDS: BUDESONIDE 0.5 MG/2 ML NEB RESP TX SCH ×2 (07:15→19:40)
[2019-11-01] MEDS: ARFORMOTEROL 15 MCG/2 ML NEB RESP TX SCH ×2 (07:15→19:40)
[2019-11-01] MEDS: ASPIRIN EC 81 MG TABLET PO SCH (08:55)
[2019-11-01] MEDS: PANTOPRAZOLE 40 MG TABLET PO SCH (08:55)
[2019-11-01] MEDS: MAGNESIUM CHLORIDE 64 MG TABLET PO SCH (08:56)
[2019-11-01] MEDS: DOCUSATE SODIUM 100 MG CAPSULE PO SCH ×2 (08:56→21:56)
[2019-11-01] MEDS: SERTRALINE 50 MG TABLET PO SCH (08:57)
[2019-11-01] MEDS: ROSUVASTATIN 10 MG TABLET PO SCH (08:57)
[2019-11-01] MEDS: allopurinoL 100 MG TABLET PO SCH (08:57)
[2019-11-01 12:33] LABS: Hematocrit 25.7 VOL% (35.7-47.0); Hemoglobin 8.1 GM/DL (12.0-16.0)
[2019-11-02] MEDS: IPRATROPIUM 500 MCG/2.5 ML NEB RESP TX SCH ×4 (01:05→18:02)
[2019-11-02] MEDS: CLINDAMYCIN INJ 600 MG in PREMIX 1 EACH IV SCH ×2 (01:18→09:48)
[2019-11-02] MEDS: methylPREDNISolone SOD SUC 40 MG/1 ML VIAL IV SCH ×3 (01:18→17:38)
[2019-11-02] MEDS: BUDESONIDE 0.5 MG/2 ML NEB RESP TX SCH ×2 (07:10→18:02)
[2019-11-02] MEDS: ARFORMOTEROL 15 MCG/2 ML NEB RESP TX SCH ×2 (07:10→18:02)
[2019-11-02] MEDS: MAGNESIUM CHLORIDE 64 MG TABLET PO SCH (09:47)
[2019-11-02] MEDS: ASPIRIN EC 81 MG TABLET PO SCH (09:47)
[2019-11-02] MEDS: DOCUSATE SODIUM 100 MG CAPSULE PO SCH ×2 (09:47→21:51)
[2019-11-02] MEDS: PANTOPRAZOLE 40 MG TABLET PO SCH (09:47)
[2019-11-02] MEDS: ROSUVASTATIN 10 MG TABLET PO SCH (09:48)
[2019-11-02] MEDS: DEXTROSE 5% NACL 0.9% 1,000 ML IV SCH (09:48)
[2019-11-02] MEDS: allopurinoL 100 MG TABLET PO SCH (09:48)
[2019-11-02] MEDS: SERTRALINE 50 MG TABLET PO SCH (09:48)
[2019-11-02] MEDS ORDERED: VANCOMYCIN INJ 1,000 MG in SODIUM CHLORIDE 0.9% 250 ML IV ONE (10:00)
[2019-11-02 11:54] LABS: Hematocrit 25.8 VOL% (35.7-47.0); Hemoglobin 7.9 GM/DL (12.0-16.0); Immature Granulocytes % 1.3 %; Immature Granulocytes Absolute 0.11 #; Lymphocytes # 0.5 10*3/uL (1.4-4.0); Lymphocytes % 6.1 % (21.3-54.2); Mean Corpuscular HGB Conc 30.6 GM/DL (32-36); Mean Corpuscular Volume 80.4 FL (87-102); Mean Platelet Volume 10.1 FL (9.6-12.0); Monocytes % 4.4 % (1.7-12.7); NRBC # 0.03 10*3/uL; Neutrophils % 88.2 % (38.7-73.9); Platelet Count 130 T/CUMM (130-400); Red Blood Count 3.21 MC/CUMM (3.8-5.5); Red Cell Distribution Width 27.9 % (9.3-17.3); White Blood Count 8.3 T/CUMM (4-12)
[2019-11-02 12:12] LABS: Platelet Estimate Adequate
[2019-11-02 12:13] LABS: Anisocytosis 2+; Hypochromasia 1+; Macrocytosis 1+; Ovalocytes Few; Poikilocytosis 1+
[2019-11-02 12:16] LABS: Calcium 7.6 MG/DL (8.5-10.1); Osmolality,Calculated 294.2 MOS/KG (273-304)
[2019-11-02] MEDS: ALUMINUM/MAGNES/SIMETH MAX STR 30 ML UDCUP PO PRN (17:39)
[2019-11-03] MEDS: IPRATROPIUM 500 MCG/2.5 ML NEB RESP TX SCH ×4 (00:51→19:10)
[2019-11-03] MEDS: methylPREDNISolone SOD SUC 40 MG/1 ML VIAL IV SCH ×3 (01:42→17:35)
[2019-11-03 06:14] LABS: Basophils % 0.2 % (0.0-0.8); Hematocrit 27.2 VOL% (35.7-47.0); Hemoglobin 8.2 GM/DL (12.0-16.0); Immature Granulocytes % 2.4 %; Immature Granulocytes Absolute 0.22 #; Lymphocytes # 0.6 10*3/uL (1.4-4.0); Lymphocytes % 6.5 % (21.3-54.2); Mean Corpuscular HGB Conc 30.1 GM/DL (32-36); Mean Corpuscular Volume 81.2 FL (87-102); Mean Platelet Volume 11.1 FL (9.6-12.0); Monocytes % 4.2 % (1.7-12.7); Neutrophils % 86.7 % (38.7-73.9); Platelet Count 149 T/CUMM (130-400); Red Blood Count 3.35 MC/CUMM (3.8-5.5); Red Cell Distribution Width 28.6 % (9.3-17.3); White Blood Count 9.3 T/CUMM (4-12)
[2019-11-03 06:24] LABS: Calcium 7.8 MG/DL (8.5-10.1)
[2019-11-03 06:52] LABS: Platelet Estimate Adequate
[2019-11-03 06:53] LABS: Anisocytosis 3+; Hypochromasia 1+; Ovalocytes Few; Poikilocytosis Slight; Polychromasia Slight
[2019-11-03] MEDS: BUDESONIDE 0.5 MG/2 ML NEB RESP TX SCH ×2 (07:15→19:10)
[2019-11-03] MEDS: ARFORMOTEROL 15 MCG/2 ML NEB RESP TX SCH ×2 (07:15→19:10)
[2019-11-03] MEDS: DEXTROSE 5% NACL 0.9% 1,000 ML IV SCH ×3 (08:55→11:04)
[2019-11-03] MEDS: ROSUVASTATIN 10 MG TABLET PO SCH (09:13)
[2019-11-03] MEDS: ASPIRIN EC 81 MG TABLET PO SCH (09:14)
[2019-11-03] MEDS: allopurinoL 100 MG TABLET PO SCH (09:14)
[2019-11-03] MEDS: MAGNESIUM CHLORIDE 64 MG TABLET PO SCH (09:14)
[2019-11-03] MEDS: SERTRALINE 50 MG TABLET PO SCH (09:14)
[2019-11-03] MEDS: DOCUSATE SODIUM 100 MG CAPSULE PO SCH ×2 (09:14→20:50)
[2019-11-03] MEDS: PANTOPRAZOLE 40 MG TABLET PO SCH (09:14)
[2019-11-04] MEDS: methylPREDNISolone SOD SUC 40 MG/1 ML VIAL IV SCH ×3 (01:07→17:06)
[2019-11-04] MEDS: BUDESONIDE 0.5 MG/2 ML NEB RESP TX SCH ×2 (08:19→19:10)
[2019-11-04] MEDS: ARFORMOTEROL 15 MCG/2 ML NEB RESP TX SCH ×2 (08:19→19:10)
[2019-11-04 08:47] LABS: Basophils % 0.2 % (0.0-0.8); Hematocrit 29.8 VOL% (35.7-47.0); Immature Granulocytes % 5.1 %; Immature Granulocytes Absolute 0.77 #; Lymphocytes % 6.8 % (21.3-54.2); Mean Corpuscular HGB Conc 30.2 GM/DL (32-36); Mean Corpuscular Volume 82.3 FL (87-102); Mean Platelet Volume 10.7 FL (9.6-12.0); Monocytes % 4.7 % (1.7-12.7); NRBC # 0.04 10*3/uL; Neutrophils % 83.2 % (38.7-73.9); Platelet Count 174 T/CUMM (130-400); Red Blood Count 3.62 MC/CUMM (3.8-5.5); Red Cell Distribution Width 28.5 % (9.3-17.3); White Blood Count 15.1 T/CUMM (4-12)
[2019-11-04 09:13] LABS: Band Neutrophils 1 % (0-10); Hypochromasia 1+; Lymphocytes 5 % (20-55); Myelocytes 1 %; Ovalocytes Slight; Platelet Estimate Adequate; Segmented Neutrophils 87 % (50-85); Total Cells Counted 100
[2019-11-04 09:16] LABS: Calcium 8.1 MG/DL (8.5-10.1); Osmolality,Calculated 297.8 MOS/KG (273-304)
[2019-11-04] MEDS: DOCUSATE SODIUM 100 MG CAPSULE PO SCH ×2 (09:36→21:57)
[2019-11-04] MEDS: PANTOPRAZOLE 40 MG TABLET PO SCH (09:36)
[2019-11-04] MEDS: ROSUVASTATIN 10 MG TABLET PO SCH (09:36)
[2019-11-04] MEDS: allopurinoL 100 MG TABLET PO SCH (09:36)
[2019-11-04] MEDS: ASPIRIN EC 81 MG TABLET PO SCH (09:36)
[2019-11-04] MEDS: SERTRALINE 50 MG TABLET PO SCH (09:36)
[2019-11-04] MEDS: MAGNESIUM CHLORIDE 64 MG TABLET PO SCH (09:49)
[2019-11-04] MEDS: DEXTROSE 5% NACL 0.9% 1,000 ML IV SCH ×2 (11:33→12:10)
[2019-11-04] MEDS ORDERED: VANCOMYCIN INJ 1,000 MG in SODIUM CHLORIDE 0.9% 250 ML IV ONE (14:00)
[2019-11-04] MEDS: IPRATROPIUM 500 MCG/2.5 ML NEB RESP TX PRN (19:10)
[2019-11-04] MEDS: guaiFENesin 200 MG/10 ML UDCUP PO PRN (21:57)
[2019-11-04] MEDS: BENZONATATE 100 MG CAPSULE PO PRN (23:27)
[2019-11-05] MEDS: methylPREDNISolone SOD SUC 40 MG/1 ML VIAL IV SCH ×3 (01:01→16:16)
[2019-11-05 07:20] LABS: Basophils # 0.1 10*3/uL (0.0-0.2); Basophils % 0.3 % (0.0-0.8); Hematocrit 30.8 VOL% (35.7-47.0); Hemoglobin 9.4 GM/DL (12.0-16.0); Immature Granulocytes Absolute 1.28 #; Lymphocytes # 1.5 10*3/uL (1.4-4.0); Lymphocytes % 8.2 % (21.3-54.2); Mean Corpuscular HGB Conc 30.5 GM/DL (32-36); Mean Corpuscular Volume 81.1 FL (87-102); Mean Platelet Volume 10.8 FL (9.6-12.0); Monocytes % 7.1 % (1.7-12.7); NRBC # 0.05 10*3/uL; Neutrophils % 77.4 % (38.7-73.9); Platelet Count 213 T/CUMM (130-400); Red Cell Distribution Width 28.7 % (9.3-17.3); White Blood Count 18.3 T/CUMM (4-12)
[2019-11-05 07:39] LABS: Band Neutrophils 1 % (0-10); Hypochromasia 1+; Lymphocytes 3 % (20-55); Nucleated Red Blood Cells 1 (0-5); Ovalocytes Slight; Platelet Estimate Adequate; Segmented Neutrophils 88 % (50-85); Total Cells Counted 100
[2019-11-05 07:47] LABS: Calcium 8.1 MG/DL (8.5-10.1)
[2019-11-05] MEDS: ARFORMOTEROL 15 MCG/2 ML NEB RESP TX SCH ×2 (07:52→19:40)
[2019-11-05] MEDS: BUDESONIDE 0.5 MG/2 ML NEB RESP TX SCH ×2 (07:52→19:40)
[2019-11-05] MEDS: IPRATROPIUM 500 MCG/2.5 ML NEB RESP TX PRN ×3 (07:52→17:40)
[2019-11-05] MEDS: allopurinoL 100 MG TABLET PO SCH (09:44)
[2019-11-05] MEDS: DOCUSATE SODIUM 100 MG CAPSULE PO SCH ×2 (09:44→22:56)
[2019-11-05] MEDS: PANTOPRAZOLE 40 MG TABLET PO SCH (09:44)
[2019-11-05] MEDS: SERTRALINE 50 MG TABLET PO SCH (09:44)
[2019-11-05] MEDS: ASPIRIN EC 81 MG TABLET PO SCH (09:44)
[2019-11-05] MEDS: MAGNESIUM CHLORIDE 64 MG TABLET PO SCH (09:51)
[2019-11-05] MEDS: ROSUVASTATIN 10 MG TABLET PO SCH (10:25)
[2019-11-05] MEDS: DEXTROSE 5% NACL 0.9% 1,000 ML IV SCH ×2 (11:45→22:57)
[2019-11-05] MEDS: ALUMINUM/MAGNES/SIMETH MAX STR 30 ML UDCUP PO PRN ×2 (14:15→23:06)
[2019-11-05] MEDS ORDERED: LACTULOSE 20 GM/30 ML UDCUP PO ONE (16:01)
[2019-11-05] MEDS ORDERED: BISACODYL 10 MG SUPP RECTAL PRN (16:04)
[2019-11-05] MEDS: BENZONATATE 100 MG CAPSULE PO PRN (16:24)
[2019-11-06] MEDS: methylPREDNISolone SOD SUC 40 MG/1 ML VIAL IV SCH ×3 (00:52→17:30)
[2019-11-06 04:43] LABS: Basophils # 0.1 10*3/uL (0.0-0.2); Basophils % 0.3 % (0.0-0.8); Hematocrit 30.5 VOL% (35.7-47.0); Hemoglobin 9.5 GM/DL (12.0-16.0); Immature Granulocytes Absolute 1.38 #; Lymphocytes # 1.2 10*3/uL (1.4-4.0); Lymphocytes % 7.9 % (21.3-54.2); Mean Corpuscular HGB Conc 31.1 GM/DL (32-36); Mean Corpuscular Volume 80.5 FL (87-102); Mean Platelet Volume 10.6 FL (9.6-12.0); Monocytes % 4.2 % (1.7-12.7); NRBC # 0.04 10*3/uL; Neutrophils % 78.6 % (38.7-73.9); Platelet Count 226 T/CUMM (130-400); Red Blood Count 3.79 MC/CUMM (3.8-5.5); Red Cell Distribution Width 28.5 % (9.3-17.3); White Blood Count 15.3 T/CUMM (4-12)
[2019-11-06 05:06] LABS: Calcium 8.5 MG/DL (8.5-10.1); Osmolality,Calculated 296.8 MOS/KG (273-304)
[2019-11-06 05:17] LABS: Band Neutrophils 2 % (0-10); Hypochromasia 1+; Lymphocytes 14 % (20-55); Ovalocytes Slight; Platelet Estimate Adequate; Segmented Neutrophils 77 % (50-85); Total Cells Counted 100
[2019-11-06] MEDS: BUDESONIDE 0.5 MG/2 ML NEB RESP TX SCH ×2 (07:58→20:00)
[2019-11-06] MEDS: IPRATROPIUM 500 MCG/2.5 ML NEB RESP TX PRN ×3 (07:58→23:30)
[2019-11-06] MEDS: ARFORMOTEROL 15 MCG/2 ML NEB RESP TX SCH ×2 (07:58→20:00)
[2019-11-06] MEDS ORDERED: LIDOCAINE 2% 5 ML VIAL ONE (14:30)
[2019-11-06] MEDS ORDERED: propofoL 200 MG/20 ML VIAL IV ONE (14:30)
[2019-11-06] MEDS ORDERED: ETOMIDATE 40 MG/20 ML VIAL IV ONE (14:30)
[2019-11-06] MEDS: DOCUSATE SODIUM 100 MG CAPSULE PO SCH ×2 (14:45→20:21)
[2019-11-06] MEDS: ASPIRIN EC 81 MG TABLET PO SCH (14:46)
[2019-11-06] MEDS: PANTOPRAZOLE 40 MG TABLET PO SCH (14:46)
[2019-11-06] MEDS: DEXTROSE 5% NACL 0.9% 1,000 ML IV SCH (14:47)
[2019-11-06] MEDS: MAGNESIUM CHLORIDE 64 MG TABLET PO SCH (14:47)
[2019-11-06] MEDS: SERTRALINE 50 MG TABLET PO SCH (14:47)
[2019-11-06] MEDS: allopurinoL 100 MG TABLET PO SCH (14:47)
[2019-11-07] MEDS: methylPREDNISolone SOD SUC 40 MG/1 ML VIAL IV SCH ×3 (01:20→17:14)
[2019-11-07 04:41] LABS: Basophils # 0.1 10*3/uL (0.0-0.2); Basophils % 0.5 % (0.0-0.8); Hematocrit 31.1 VOL% (35.7-47.0); Hemoglobin 9.5 GM/DL (12.0-16.0); Immature Granulocytes % 8.9 %; Immature Granulocytes Absolute 1.17 #; Lymphocytes % 7.2 % (21.3-54.2); Mean Corpuscular HGB Conc 30.5 GM/DL (32-36); Mean Corpuscular Volume 82.1 FL (87-102); Mean Platelet Volume 11.5 FL (9.6-12.0); NRBC # 0.04 10*3/uL; Neutrophils % 79.4 % (38.7-73.9); Platelet Count 249 T/CUMM (130-400); Red Blood Count 3.79 MC/CUMM (3.8-5.5); Red Cell Distribution Width 28.9 % (9.3-17.3); White Blood Count 13.2 T/CUMM (4-12)
[2019-11-07 05:04] LABS: Hypochromasia 1+; Lymphocytes 4 % (20-55); Nucleated Red Blood Cells 2 (0-5); Ovalocytes Slight; Platelet Estimate Adequate; Segmented Neutrophils 91 % (50-85); Total Cells Counted 100
[2019-11-07 05:15] LABS: Calcium 8.1 MG/DL (8.5-10.1); Osmolality,Calculated 299.7 MOS/KG (273-304)
[2019-11-07] MEDS: ARFORMOTEROL 15 MCG/2 ML NEB RESP TX SCH ×2 (08:16→19:27)
[2019-11-07] MEDS: BUDESONIDE 0.5 MG/2 ML NEB RESP TX SCH ×2 (08:16→19:27)
[2019-11-07] MEDS: ASPIRIN EC 81 MG TABLET PO SCH (09:41)
[2019-11-07] MEDS: carvediloL 3.125 MG TABLET PO SCH ×2 (09:41→22:12)
[2019-11-07] MEDS: FUROSEMIDE 40 MG TABLET PO SCH (09:41)
[2019-11-07] MEDS: PANTOPRAZOLE 40 MG TABLET PO SCH (09:42)
[2019-11-07] MEDS: DOCUSATE SODIUM 100 MG CAPSULE PO SCH ×2 (09:42→22:12)
[2019-11-07] MEDS: SERTRALINE 50 MG TABLET PO SCH (09:42)
[2019-11-07] MEDS: MAGNESIUM CHLORIDE 64 MG TABLET PO SCH (09:42)
[2019-11-07] MEDS: allopurinoL 100 MG TABLET PO SCH (09:42)
[2019-11-07] MEDS: IPRATROPIUM 500 MCG/2.5 ML NEB RESP TX PRN (14:45)
[2019-11-08] MEDS: DEXTROSE 5% NACL 0.9% 1,000 ML IV SCH ×2 (00:29→13:40)
[2019-11-08] MEDS: methylPREDNISolone SOD SUC 40 MG/1 ML VIAL IV SCH ×3 (00:29→18:31)
[2019-11-08] MEDS: IPRATROPIUM 500 MCG/2.5 ML NEB RESP TX PRN ×3 (03:36→14:07)
[2019-11-08 06:33] LABS: Basophils % 0.3 % (0.0-0.8); Hematocrit 31.4 VOL% (35.7-47.0); Hemoglobin 9.7 GM/DL (12.0-16.0); Immature Granulocytes % 4.9 %; Lymphocytes # 1.2 10*3/uL (1.4-4.0); Lymphocytes % 8.4 % (21.3-54.2); Mean Corpuscular HGB Conc 30.9 GM/DL (32-36); Mean Corpuscular Volume 81.1 FL (87-102); Monocytes % 4.5 % (1.7-12.7); NRBC # 0.04 10*3/uL; Neutrophils % 81.9 % (38.7-73.9); Platelet Count 261 T/CUMM (130-400); Red Blood Count 3.87 MC/CUMM (3.8-5.5); White Blood Count 14.2 T/CUMM (4-12)
[2019-11-08 06:52] LABS: Calcium 8.4 MG/DL (8.5-10.1)
[2019-11-08 06:59] LABS: Elliptocytes Few; Hypochromasia 1+; Lymphocytes 6 % (20-55); Platelet Estimate Adequate; Segmented Neutrophils 89 % (50-85); Total Cells Counted 100
[2019-11-08] MEDS: ARFORMOTEROL 15 MCG/2 ML NEB RESP TX SCH ×2 (07:30→20:10)
[2019-11-08] MEDS: BUDESONIDE 0.5 MG/2 ML NEB RESP TX SCH ×2 (07:30→20:10)
[2019-11-08] MEDS: MAGNESIUM CHLORIDE 64 MG TABLET PO SCH (09:27)
[2019-11-08] MEDS: PANTOPRAZOLE 40 MG TABLET PO SCH (09:27)
[2019-11-08] MEDS: carvediloL 3.125 MG TABLET PO SCH ×2 (09:27→22:08)
[2019-11-08] MEDS: SERTRALINE 50 MG TABLET PO SCH (09:27)
[2019-11-08] MEDS: ASPIRIN EC 81 MG TABLET PO SCH (09:27)
[2019-11-08] MEDS: allopurinoL 100 MG TABLET PO SCH (09:27)
[2019-11-08] MEDS: FUROSEMIDE 40 MG TABLET PO SCH (09:28)
[2019-11-08] MEDS: DOCUSATE SODIUM 100 MG CAPSULE PO SCH ×2 (09:28→22:08)
[2019-11-08] MEDS ORDERED: FUROSEMIDE 40 MG/4 ML VIAL IV ONE (16:51)
[2019-11-08] MEDS: CLORAZEPATE 3.75 MG TABLET PO PRN (22:08)
[2019-11-09] MEDS: methylPREDNISolone SOD SUC 40 MG/1 ML VIAL IV SCH ×2 (02:59→09:27)
[2019-11-09] MEDS: ALUMINUM/MAGNES/SIMETH MAX STR 30 ML UDCUP PO PRN (03:07)
[2019-11-09] MEDS: ARFORMOTEROL 15 MCG/2 ML NEB RESP TX SCH ×2 (07:18→19:48)
[2019-11-09] MEDS: BUDESONIDE 0.5 MG/2 ML NEB RESP TX SCH ×2 (07:18→19:48)
[2019-11-09 07:26] LABS: Basophils % 0.1 % (0.0-0.8); Hematocrit 32.9 VOL% (35.7-47.0); Hemoglobin 9.7 GM/DL (12.0-16.0); Immature Granulocytes Absolute 0.42 #; Lymphocytes # 0.9 10*3/uL (1.4-4.0); Lymphocytes % 6.7 % (21.3-54.2); Mean Corpuscular HGB Conc 29.5 GM/DL (32-36); Mean Corpuscular Volume 86.1 FL (87-102); Monocytes % 1.8 % (1.7-12.7); NRBC # 0.02 10*3/uL; Neutrophils % 88.4 % (38.7-73.9); Platelet Count 198 T/CUMM (130-400); Red Blood Count 3.82 MC/CUMM (3.8-5.5); Red Cell Distribution Width 29.4 % (9.3-17.3); White Blood Count 13.9 T/CUMM (4-12)
[2019-11-09 08:17] LABS: Hypochromasia 1+
[2019-11-09 08:18] LABS: Microcytosis 1+; Ovalocytes Slight
[2019-11-09 08:19] LABS: Burr Cells Slight
[2019-11-09] MEDS: allopurinoL 100 MG TABLET PO SCH (09:26)
[2019-11-09] MEDS: DOCUSATE SODIUM 100 MG CAPSULE PO SCH ×2 (09:26→21:40)
[2019-11-09] MEDS: SERTRALINE 50 MG TABLET PO SCH (09:26)
[2019-11-09] MEDS: FUROSEMIDE 40 MG TABLET PO SCH (09:26)
[2019-11-09] MEDS: MAGNESIUM CHLORIDE 64 MG TABLET PO SCH (09:27)
[2019-11-09] MEDS: ASPIRIN EC 81 MG TABLET PO SCH (09:27)
[2019-11-09] MEDS: carvediloL 3.125 MG TABLET PO SCH ×2 (09:27→21:40)
[2019-11-09] MEDS: PANTOPRAZOLE 40 MG TABLET PO SCH (09:42)
[2019-11-09 12:19] LABS: Calcium 8.5 MG/DL (8.5-10.1); Osmolality,Calculated 296.1 MOS/KG (273-304)
[2019-11-09] MEDS ORDERED: IPRATROPIUM 500 MCG/2.5 ML NEB RESP TX ONE (15:32)
[2019-11-09] MEDS: CLORAZEPATE 3.75 MG TABLET PO PRN ×2 (16:36→21:40)
[2019-11-09] MEDS ORDERED: IPRATROPIUM 500 MCG/2.5 ML NEB RESP TX SCH (19:00)
[2019-11-09] MEDS: IPRATROPIUM 500 MCG/2.5 ML NEB RESP TX SCH (19:48)
[2019-11-10] MEDS: IPRATROPIUM 500 MCG/2.5 ML NEB RESP TX SCH ×4 (01:44→19:19)
[2019-11-10 06:38] LABS: Basophils % 0.2 % (0.0-0.8); Hematocrit 32.2 VOL% (35.7-47.0); Hemoglobin 9.8 GM/DL (12.0-16.0); Immature Granulocytes Absolute 0.38 #; Lymphocytes # 1.3 10*3/uL (1.4-4.0); Lymphocytes % 6.9 % (21.3-54.2); Mean Corpuscular HGB Conc 30.4 GM/DL (32-36); Mean Corpuscular Volume 83.6 FL (87-102); Mean Platelet Volume 10.8 FL (9.6-12.0); Monocytes % 5.5 % (1.7-12.7); NRBC # 0.03 10*3/uL; Neutrophils % 85.4 % (38.7-73.9); Platelet Count 234 T/CUMM (130-400); Red Blood Count 3.85 MC/CUMM (3.8-5.5); Red Cell Distribution Width 28.5 % (9.3-17.3)
[2019-11-10 06:45] LABS: Albumin 2.2 G/DL (3.4-5.0); Bilirubin,Total 0.5 MG/DL (0.2-1.0); Calcium 8.2 MG/DL (8.5-10.1); Osmolality,Calculated 300.8 MOS/KG (273-304); Total Protein 5.5 G/DL (6.4-8.3)
[2019-11-10] MEDS: BUDESONIDE 0.5 MG/2 ML NEB RESP TX SCH ×2 (07:25→19:19)
[2019-11-10] MEDS: ARFORMOTEROL 15 MCG/2 ML NEB RESP TX SCH ×2 (07:25→19:19)
[2019-11-10 08:13] LABS: Hypochromasia 1+
[2019-11-10 08:14] LABS: Microcytosis 1+; Spherocytes Slight
[2019-11-10] MEDS: predniSONE 20 MG TABLET PO SCH (09:35)
[2019-11-10] MEDS: PANTOPRAZOLE 40 MG TABLET PO SCH (09:35)
[2019-11-10] MEDS: allopurinoL 100 MG TABLET PO SCH (09:35)
[2019-11-10] MEDS: SERTRALINE 50 MG TABLET PO SCH (09:35)
[2019-11-10] MEDS: CLORAZEPATE 3.75 MG TABLET PO PRN ×2 (09:35→21:27)
[2019-11-10] MEDS: MAGNESIUM CHLORIDE 64 MG TABLET PO SCH (09:35)
[2019-11-10] MEDS: DOCUSATE SODIUM 100 MG CAPSULE PO SCH ×2 (09:35→21:27)
[2019-11-10] MEDS: ASPIRIN EC 81 MG TABLET PO SCH (09:35)
[2019-11-10] MEDS: FUROSEMIDE 40 MG TABLET PO SCH (09:35)
[2019-11-10] MEDS: carvediloL 3.125 MG TABLET PO SCH ×2 (09:35→21:27)
[2019-11-10] MEDS ORDERED: ALBUTEROL 2.5 MG/3 ML NEB RESP TX SCH (19:00)
[2019-11-11] MEDS: IPRATROPIUM 500 MCG/2.5 ML NEB RESP TX SCH ×4 (01:16→18:30)
[2019-11-11 06:29] LABS: Basophils % 0.1 % (0.0-0.8); Hematocrit 30.2 VOL% (35.7-47.0); Hemoglobin 9.4 GM/DL (12.0-16.0); Immature Granulocytes % 1.4 %; Immature Granulocytes Absolute 0.21 #; Mean Corpuscular HGB Conc 31.1 GM/DL (32-36); Mean Corpuscular Volume 83.2 FL (87-102); Mean Platelet Volume 10.8 FL (9.6-12.0); Monocytes % 4.6 % (1.7-12.7); Neutrophils % 86.9 % (38.7-73.9); Red Blood Count 3.63 MC/CUMM (3.8-5.5); Red Cell Distribution Width 27.9 % (9.3-17.3); White Blood Count 14.9 T/CUMM (4-12)
[2019-11-11 06:34] LABS: Platelet Count 177 T/CUMM (130-400)
[2019-11-11 06:53] LABS: Hypochromasia 1+; Ovalocytes Slight; Platelet Estimate Adequate
[2019-11-11 06:54] LABS: Albumin 2.2 G/DL (3.4-5.0); Calcium 8.4 MG/DL (8.5-10.1); Microcytosis 1+; Osmolality,Calculated 299.7 MOS/KG (273-304); Total Protein 5.4 G/DL (6.4-8.3)
[2019-11-11] MEDS: ARFORMOTEROL 15 MCG/2 ML NEB RESP TX SCH ×2 (07:07→18:30)
[2019-11-11] MEDS: BUDESONIDE 0.5 MG/2 ML NEB RESP TX SCH ×2 (07:07→18:30)
[2019-11-11] MEDS: predniSONE 20 MG TABLET PO SCH (10:10)
[2019-11-11] MEDS: DOCUSATE SODIUM 100 MG CAPSULE PO SCH ×2 (10:11→22:17)
[2019-11-11] MEDS: ASPIRIN EC 81 MG TABLET PO SCH (10:11)
[2019-11-11] MEDS: allopurinoL 100 MG TABLET PO SCH (10:11)
[2019-11-11] MEDS: FUROSEMIDE 40 MG TABLET PO SCH (10:11)
[2019-11-11] MEDS: PANTOPRAZOLE 40 MG TABLET PO SCH (10:11)
[2019-11-11] MEDS: SERTRALINE 50 MG TABLET PO SCH (10:11)
[2019-11-11] MEDS: carvediloL 3.125 MG TABLET PO SCH ×2 (10:11→22:17)
[2019-11-11] MEDS: MAGNESIUM CHLORIDE 64 MG TABLET PO SCH (10:12)
[2019-11-11] MEDS: AZELASTINE NASAL 137 MCG/SPRAY 30 ML BOTTLE BOTH NARES SCH (10:20)
[2019-11-11] MEDS ORDERED: AZELASTINE NASAL 137 MCG/SPRAY 30 ML BOTTLE BOTH NARES SCH (15:02)
[2019-11-11] MEDS: CLORAZEPATE 3.75 MG TABLET PO PRN (22:17)
[2019-11-12] MEDS: IPRATROPIUM 500 MCG/2.5 ML NEB RESP TX SCH ×3 (01:00→13:38)
[2019-11-12] MEDS: ARFORMOTEROL 15 MCG/2 ML NEB RESP TX SCH (07:20)
[2019-11-12] MEDS: BUDESONIDE 0.5 MG/2 ML NEB RESP TX SCH (07:20)
[2019-11-12 08:38] LABS: Calcium 7.8 MG/DL (8.5-10.1); Osmolality,Calculated 295.8 MOS/KG (273-304)
[2019-11-12 08:44] LABS: Basophils % 0.1 % (0.0-0.8); Hematocrit 30.9 VOL% (35.7-47.0); Hemoglobin 9.4 GM/DL (12.0-16.0); Immature Granulocytes % 1.2 %; Immature Granulocytes Absolute 0.18 #; Lymphocytes # 1.1 10*3/uL (1.4-4.0); Lymphocytes % 7.2 % (21.3-54.2); Mean Corpuscular HGB Conc 30.4 GM/DL (32-36); Mean Corpuscular Volume 84.4 FL (87-102); Mean Platelet Volume 11.2 FL (9.6-12.0); Monocytes % 4.8 % (1.7-12.7); Neutrophils % 86.7 % (38.7-73.9); Platelet Count 151 T/CUMM (130-400); Red Blood Count 3.66 MC/CUMM (3.8-5.5); Red Cell Distribution Width 28.1 % (9.3-17.3); White Blood Count 15.3 T/CUMM (4-12)
[2019-11-12 09:21] LABS: Hypochromasia 1+
[2019-11-12 09:22] LABS: Microcytosis 1+
[2019-11-12] MEDS: ASPIRIN EC 81 MG TABLET PO SCH (09:24)
[2019-11-12] MEDS: DOCUSATE SODIUM 100 MG CAPSULE PO SCH (09:25)
[2019-11-12] MEDS: allopurinoL 100 MG TABLET PO SCH (09:25)
[2019-11-12] MEDS: SERTRALINE 50 MG TABLET PO SCH (09:25)
[2019-11-12] MEDS: PANTOPRAZOLE 40 MG TABLET PO SCH (09:25)
[2019-11-12] MEDS: FUROSEMIDE 40 MG TABLET PO SCH (09:25)
[2019-11-12] MEDS: predniSONE 20 MG TABLET PO SCH (09:25)
[2019-11-12] MEDS: carvediloL 3.125 MG TABLET PO SCH (09:25)
[2019-11-12] MEDS: AZELASTINE NASAL 137 MCG/SPRAY 30 ML BOTTLE BOTH NARES SCH (09:25)
[2019-11-12] MEDS: MAGNESIUM CHLORIDE 64 MG TABLET PO SCH (09:25)
[2019-11-12 11:28] VITALS: BP 126/56
[2019-11-12] MEDS: guaiFENesin 200 MG/10 ML UDCUP PO PRN (12:31)
[2019-11-12] MEDS ORDERED: IPRATROPIUM 500 MCG/2.5 ML NEB RESP TX PRN (12:44)
[2019-11-12] MEDS ORDERED: VANCOMYCIN INJ 1,000 MG in SODIUM CHLORIDE 0.9% 250 ML IV ONE (14:00)
[2019-11-12] MEDS ORDERED: VANCOMYCIN INJ 1,000 MG in SODIUM CHLORIDE 0.9% 250 ML IV PRN (14:00)
[2019-11-14] MEDS ORDERED: allopurinoL 100 MG TABLET PO SCH (09:00)
== END 2019-11-12 15:30 | DRG 871 ==
LOC: EDUNIT# → EDBD → N.EDINP 14:32 → N.ED 14:32 → N.2W 17:48 → N.CC 10-30 08:37 → N.TELEN 11-03 18:11
PROVIDERS: ADMIT Family Medicine; ATTEND Family Medicine